=== PATIENT | female | born 1960 | race Hispanic/Latino ===

== ENCOUNTER 2021-08-17 06:15 | Inpatient (IN) | payer OTHER, SELFPAY ==
[2021-08-14 12:53] LABS: BASOPHILS % (AUTO) 0.8 % (0.0-5.0); EOSINOPHILS % (AUTO) 3.1 % (0.0-8.0); HEMATOCRIT 49.2 % (36-48); LYMPHOCYTES % (AUTO) 30.2 % (21.0-51.0); MEAN CORPUSCULAR HEMOGLOBIN 29.4 pg (27.0-33.0); MEAN CORPUSCULAR HGB CONC 34.1 g/dL (32.0-36.0); MEAN CORPUSCULAR VOLUME 86.2 fL (79-99); MONOCYTES % (AUTO) 5.4 % (3.0-13.0); NEUTROPHILS % (AUTO) 60.3 % (40.0-77.0); PLATELET COUNT (AUTO) 207 K/uL (130-400); RED BLOOD CELL COUNT(AUTO) 5.71 MIL/uL (4.00-5.50); RED CELL DISTRIBUTION WIDTH 12.4 % (11.0-15.5); WHITE BLOOD COUNT (AUTO) 8.8 K/uL (4.8-10.8)
[2021-08-14 13:08] LABS: INR 1.08 (0.85-1.15); PROTHROMBIN TIME 11.7 SEC (9.6-11.6)
[2021-08-14 13:09] LABS: PARTIAL THROMBOPLASTIN TIME 36.2 SEC (26.3-35.5)
[2021-08-14 13:11] LABS: CREATININE 0.8 mg/dL (0.5-1.5)
[2021-08-14 15:50] VITALS: BP 128/95
[2021-08-17] VITALS (19 sets, daily range): BP systolic 95–144; BP diastolic 51–89
[~2021-08-17] VITALS: Ht 162.6 cm; Wt 107.5 kg
[~2021-08-17 06:15] MED LIST: AMLO2.5T4 PO; APIX5TAB PO; CLON0.1T PO; DICL50TA9 PO; FLUT16H NASAL; FLUT8AER3 IH; HYDR12.54 PO; LEVO150T6 PO; LOSA100T58 PO; METO50TA18 PO; ROSU40TA21 PO; TOPI50CA5 PO
[2021-08-17] MEDS ORDERED: LIDOCAINE HCL 2% VISCOUS 15 ML UDCUP ONE (07:51)
[2021-08-17] MEDS ORDERED: 0.9%NACL 1000ML 1,000 ML IV SCH (08:00)
[2021-08-17] MEDS ORDERED: LIDOCAINE PF 100MG/5ML (2%) SYRINGE 5ML ONE (08:02)
[2021-08-17] MEDS ORDERED: PROPOFOL 10 MG/ML 20ML VIAL IV ONE (08:02)
[2021-08-17] MEDS ORDERED: GLYCOPYRROLATE 1 MG/5 ML SYRINGE ONE (08:03)
[2021-08-17] MEDS ORDERED: KCL 20 MEQ ERTAB PO SCH (09:00)
[2021-08-17] MEDS ORDERED: AMIODARONE 150MG VIAL 150 MG in DEXTROSE 5%-WATER 100 ML IV SCH (09:00)
[2021-08-17] MEDS ORDERED: AMIODARONE 360MG/200ML D5W(1MG/MIN) IV SCH ×2 (09:30)
[2021-08-17 11:57] LABS: BASOPHILS % (AUTO) 0.5 % (0.0-5.0); EOSINOPHILS % (AUTO) 2.3 % (0.0-8.0); HEMATOCRIT 41.7 % (36-48); LYMPHOCYTES % (AUTO) 27.9 % (21.0-51.0); MEAN CORPUSCULAR HEMOGLOBIN 30.1 pg (27.0-33.0); MEAN CORPUSCULAR HGB CONC 34.5 g/dL (32.0-36.0); MEAN CORPUSCULAR VOLUME 87.1 fL (79-99); MONOCYTES % (AUTO) 4.7 % (3.0-13.0); NEUTROPHILS % (AUTO) 64.4 % (40.0-77.0); PLATELET COUNT (AUTO) 172 K/uL (130-400); RED BLOOD CELL COUNT(AUTO) 4.79 MIL/uL (4.00-5.50); RED CELL DISTRIBUTION WIDTH 12.6 % (11.0-15.5); WHITE BLOOD COUNT (AUTO) 8.1 K/uL (4.8-10.8)
[2021-08-17 12:18] LABS: CREATININE 0.8 mg/dL (0.5-1.5); MAGNESIUM 1.9 mg/dL (1.80-2.40); POTASSIUM 3.3 mmol/L (3.5-5.1); THYROID STIMULATING HORMONE 0.62 uIU/mL (0.36-3.74)
[2021-08-17] MEDS ORDERED: AMIODARONE 540 MG/D5W 300ML (0.5MG/MIN) IV SCH ×2 (13:30)
[2021-08-17] MEDS ORDERED: KCL 20 MEQ ERTAB PO ONE (13:50)
[2021-08-17] MEDS: TOPIRAMATE 50 MG PO SCH (20:13)
[2021-08-17] MEDS: METOPROLOL TARTRATE 50 MG TAB PO SCH (20:13)
[2021-08-17] MEDS: APIXABAN 5 MG TABLET PO SCH (20:13)
[2021-08-17] MEDS ORDERED: CLONIDINE HCL 0.1 MG TABLET PO SCH (21:00)
[2021-08-17] MEDS ORDERED: AMLODIPINE 2.5 MG TAB PO SCH (21:00)
[2021-08-18] VITALS (17 sets, daily range): BP systolic 107–145; BP diastolic 46–107
[2021-08-18 03:57] LABS: CREATININE 1.1 mg/dL (0.5-1.5); POTASSIUM 3.7 mmol/L (3.5-5.1)
[2021-08-18] MEDS ORDERED: AMIODARONE 150MG VIAL 150 MG in DEXTROSE 5%-WATER 100 ML IV SCH (08:30)
[2021-08-18] MEDS ORDERED: AMIODARONE 900MG VIAL 360 MG in DEXTROSE 5%-WATER 200 ML IV SCH ×2 (08:30→09:30)
[2021-08-18] MEDS: LEVOTHYROXINE 150 MCG TABLET PO SCH (08:37)
[2021-08-18] MEDS: METOPROLOL TARTRATE 50 MG TAB PO SCH ×2 (08:38→21:01)
[2021-08-18] MEDS: APIXABAN 5 MG TABLET PO SCH ×2 (08:38→21:01)
[2021-08-18] MEDS: FUROSEMIDE 20MG VIAL IV SCH (08:38)
[2021-08-18] MEDS: POTASSIUM CHLORIDE 10% ELIXIR 20 MEQ/15 ML UDCUP PO SCH (08:39)
[2021-08-18] MEDS: (Rosuvastatin Calcium 40 MG) PO SCH (09:00)
[2021-08-18] MEDS: TOPIRAMATE 50 MG PO SCH ×2 (09:00→21:00)
[2021-08-18] MEDS: LOSARTAN 100 MG TABLET PO SCH ×2 (09:00→16:28)
[2021-08-18] MEDS ORDERED: AMIODARONE 900MG VIAL 150 MG in DEXTROSE 5%-WATER 100 ML IV SCH (09:00)
[2021-08-18] MEDS ORDERED: HYDROCHLOROTHIAZIDE 25 MG TABLET PO SCH (09:00)
[2021-08-18] MEDS ORDERED: KCL 20 MEQ ERTAB PO SCH (09:00)
[2021-08-18] MEDS ORDERED: METOPROLOL TARTRATE 1 MG/ML 5ML VIAL IV SCH (17:00)
[2021-08-18] MEDS: METOPROLOL TARTRATE 1 MG/ML 5ML VIAL IV ONE ×2 (17:16→17:18)
[2021-08-18] MEDS ORDERED: AMIODARONE 900MG VIAL 540 MG in DEXTROSE 5%-WATER 300 ML IV ONE (17:30)
[2021-08-19] VITALS (19 sets, daily range): BP systolic 108–154; BP diastolic 66–93
[2021-08-19 04:57] LABS: MEAN CORPUSCULAR HEMOGLOBIN 30.2 pg (27.0-33.0); MEAN CORPUSCULAR HGB CONC 34.6 g/dL (32.0-36.0); MEAN CORPUSCULAR VOLUME 87.5 fL (79-99); RED BLOOD CELL COUNT(AUTO) 5.26 MIL/uL (4.00-5.50); RED CELL DISTRIBUTION WIDTH 12.6 % (11.0-15.5); WHITE BLOOD COUNT (AUTO) 8.5 K/uL (4.8-10.8)
[2021-08-19 05:15] LABS: CREATININE 0.9 mg/dL (0.5-1.5); MAGNESIUM 1.9 mg/dL (1.80-2.40); POTASSIUM 3.3 mmol/L (3.5-5.1)
[2021-08-19] MEDS: LEVOTHYROXINE 150 MCG TABLET PO SCH (06:30)
[2021-08-19] MEDS: LOSARTAN 100 MG TABLET PO SCH (09:00)
[2021-08-19] MEDS: (Rosuvastatin Calcium 40 MG) PO SCH (09:00)
[2021-08-19] MEDS: TOPIRAMATE 50 MG PO SCH ×2 (09:00→21:00)
[2021-08-19] MEDS: POTASSIUM CHLORIDE 10% ELIXIR 20 MEQ/15 ML UDCUP PO SCH (09:00)
[2021-08-19] MEDS ORDERED: METOPROLOL TARTRATE 1 MG/ML 5ML VIAL IV ONE (09:00)
[2021-08-19] MEDS: METOPROLOL TARTRATE 50 MG TAB PO SCH ×2 (09:00→21:15)
[2021-08-19] MEDS ORDERED: PHARMACY COMMUNICATION MISC SCH (09:00)
[2021-08-19] MEDS: FUROSEMIDE 20MG VIAL IV SCH (09:14)
[2021-08-19] MEDS: APIXABAN 5 MG TABLET PO SCH ×2 (09:14→21:16)
[2021-08-19] MEDS ORDERED: 0.9%NACL 1000ML 1,000 ML IV ONE (09:36)
[2021-08-19] MEDS ORDERED: PROPOFOL 10 MG/ML 20ML VIAL IV ONE (12:12)
[2021-08-19] MEDS ORDERED: KCL 20 MEQ ERTAB PO ONE (18:00)
[2021-08-19] MEDS: AMIODARONE 200 MG TABLET PO SCH (18:28)
[2021-08-19] MEDS ORDERED: POTASSIUM CHLORIDE 20MEQ/100ML 100 ML IV PRN (19:30)
[2021-08-19] MEDS ORDERED: POTASSIUM CHLORIDE 10% ELIXIR 20 MEQ/15 ML UDCUP PO PRN (19:30)
[2021-08-19] MEDS ORDERED: KCL 20 MEQ ERTAB PO PRN (19:30)
[2021-08-19] MEDS ORDERED: LIDOCAINE HCL-MPF 1% 2ML VIAL IV PRN (19:30)
[2021-08-19] MEDS: FAMOTIDINE 20MG TAB PO SCH (21:15)
[2021-08-20 03:58] VITALS: BP 136/81
[2021-08-20 04:14] LABS: HEMATOCRIT 45.7 % (36-48); MEAN CORPUSCULAR HEMOGLOBIN 30.4 pg (27.0-33.0); MEAN CORPUSCULAR VOLUME 86.7 fL (79-99); RED BLOOD CELL COUNT(AUTO) 5.27 MIL/uL (4.00-5.50); RED CELL DISTRIBUTION WIDTH 12.8 % (11.0-15.5)
[2021-08-20 04:42] LABS: POTASSIUM 3.3 mmol/L (3.5-5.1)
[2021-08-20] MEDS: LEVOTHYROXINE 150 MCG TABLET PO SCH (05:54)
[2021-08-20 07:13] VITALS: BP 138/79
[2021-08-20] MEDS: AMIODARONE 200 MG TABLET PO SCH (07:27)
[2021-08-20] MEDS: FAMOTIDINE 20MG TAB PO SCH (07:27)
[2021-08-20] MEDS: APIXABAN 5 MG TABLET PO SCH (07:27)
[2021-08-20] MEDS: METOPROLOL TARTRATE 50 MG TAB PO SCH (07:27)
[2021-08-20] MEDS: LOSARTAN 100 MG TABLET PO SCH (07:27)
[2021-08-20] MEDS: TOPIRAMATE 50 MG PO SCH (07:28)
[2021-08-20] MEDS: (Rosuvastatin Calcium 40 MG) PO SCH (07:28)
[2021-08-20] MEDS ORDERED: POTASSIUM CHLORIDE 10% ELIXIR 20 MEQ/15 ML UDCUP PO SCH (09:00)
[2021-08-20] MEDS ORDERED: ROSU40TA21 PO (11:19)
[2021-08-20] MEDS ORDERED: AMIO200T68 PO (11:19)
[2021-08-20] MEDS ORDERED: METO25TA6 PO (11:19)
[2021-08-20] MEDS ORDERED: LOSA100T58 PO (11:19)
[2021-08-20] MEDS ORDERED: APIX5TAB PO (11:19)
[2021-08-20 12:05] VITALS: BP 126/73
== END 2021-08-20 13:07 | disposition home or self-care (01) | DRG 309 ==
LOC: DAH 06:15 → INTOOBSV 06:16 → OBSVTOIN 06:16 → DAH 06:16 → UNDOADMOB 06:16 → DAHIP 06:16 → 2BH 10:27 → DAHIP 10:27 → 2DH 08-19 02:00
PROVIDERS: ADMIT Hospitalist; ATTEND Hospitalist
PROC: 5A2204Z Restoration of Cardiac Rhythm, Single (ICD-10-PCS; principal; 2021-08-19)
DX: I48.91 Unspecified atrial fibrillation (principal); I50.22 Chronic systolic (congestive) heart failure; Z68.41 Body mass index [BMI] 40.0-44.9, adult; E87.6 Hypokalemia; E03.9 Hypothyroidism, unspecified; E66.9 Obesity, unspecified; E78.5 Hyperlipidemia, unspecified; I11.0 Hypertensive heart disease with heart failure; J45.909 Unspecified asthma, uncomplicated; Z79.01 Long term (current) use of anticoagulants; Z79.899 Other long term (current) drug therapy
CPT/HCPCS: 36415; 80048; 80061; 83735; 84443; 85025; 85027; 85610; 85730; 93005; 93306; 93312; 93356; 96374; A4606; G0378; J0282; J1940; J2001; J2704; J3490; J7030; J7060

== ENCOUNTER 2022-08-19 21:18 | Inpatient (IN) | payer OTHER ==
[~2022-08-19] VITALS: Ht 162.6 cm; Wt 123.2 kg
[~2022-08-19 21:18] MED LIST changes: +AMIO200T68 PO; -AMLO2.5T4 PO; -CLON0.1T PO; -DICL50TA9 PO; -FLUT16H NASAL; -HYDR12.54 PO; -LOSA100T58 PO; +LOSA100T59 PO; +METO25TA6 PO; -METO50TA18 PO
[2022-08-19 21:39] LABS: BASOPHILS % (AUTO) 0.6 % (0.0-5.0); EOSINOPHILS % (AUTO) 2.4 % (0.0-8.0); HEMATOCRIT 45.9 % (36-48); LYMPHOCYTES % (AUTO) 27.4 % (21.0-51.0); MEAN CORPUSCULAR HEMOGLOBIN 31.4 pg (27.0-33.0); MEAN CORPUSCULAR HGB CONC 34.2 g/dL (32.0-36.0); MEAN CORPUSCULAR VOLUME 91.8 fL (79-99); MONOCYTES % (AUTO) 5.2 % (3.0-13.0); NEUTROPHILS % (AUTO) 63.9 % (40.0-77.0); PLATELET COUNT (AUTO) 199 K/uL (130-400); WHITE BLOOD COUNT (AUTO) 10.4 K/uL (4.8-10.8)
[2022-08-19 21:51] LABS: POTASSIUM 3.2 mmol/L (3.5-5.1)
[2022-08-19 21:52] LABS: INR 0.95 (0.85-1.15); PROTHROMBIN TIME 10.4 SEC (9.6-11.6)
[2022-08-19 21:53] LABS: PARTIAL THROMBOPLASTIN TIME 32.2 SEC (26.3-35.5)
[2022-08-19] MEDS ORDERED: POTASSIUM BICARB/CIT AC 25 MEQ TABLET.EFF ONE (21:55)
[2022-08-19] MEDS ORDERED: ASPIRIN 325MG TAB PO ONE (22:00)
[2022-08-19] MEDS ORDERED: POTASSIUM BICARB/CIT AC 25 MEQ TABLET.EFF PO ONE (22:00)
[2022-08-19 22:01] LABS: ALBUMIN 4.6 g/dL (3.5-5.0); TOTAL PROTEIN, SERUM 7.9 g/dL (6.0-8.3)
[2022-08-19] MEDS: NITROGLYCERIN 0.4 MG SL TAB SL PRN ×3 (22:08→23:01)
[2022-08-19] MEDS ORDERED: MORPHINE 4 MG SYG IVP ONE (23:00)
[2022-08-19] MEDS ORDERED: ONDANSETRON 4MG INJ IVP ONE (23:00)
[2022-08-20] VITALS (13 sets, daily range): BP systolic 120–150; BP diastolic 69–98
[2022-08-20] MEDS ORDERED: 0.9%NACL 1000ML 1,000 ML IV ONE
[2022-08-20] MEDS ORDERED: NITROGLYCERIN 30 GM TUBE TD ONE (01:30)
[2022-08-20] MEDS ORDERED: NITROGLYCERIN 1GM OINT 1 INCH/1GM TD ONE (01:30)
[2022-08-20] MEDS ORDERED: MORPHINE 2 MG SYG IVP PRN (02:00)
[2022-08-20] MEDS ORDERED: ACETAMINOPHEN 325 MG TAB PO PRN (02:00)
[2022-08-20] MEDS ORDERED: ONDANSETRON 4MG TABLET PO PRN (02:00)
[2022-08-20] MEDS ORDERED: FURO20TA4 PO (03:33)
[2022-08-20] MEDS ORDERED: LEVO150T11 PO (03:33)
[2022-08-20] MEDS ORDERED: METO50 PO (03:33)
[2022-08-20] MEDS ORDERED: TOPI-255 PO (03:33)
[2022-08-20 04:04] LABS: BASOPHILS % (AUTO) 0.7 % (0.0-5.0); EOSINOPHILS % (AUTO) 1.9 % (0.0-8.0); HEMATOCRIT 43.8 % (36-48); LYMPHOCYTES % (AUTO) 23.9 % (21.0-51.0); MEAN CORPUSCULAR HEMOGLOBIN 31.3 pg (27.0-33.0); MEAN CORPUSCULAR HGB CONC 33.3 g/dL (32.0-36.0); MEAN CORPUSCULAR VOLUME 93.8 fL (79-99); MONOCYTES % (AUTO) 5.3 % (3.0-13.0); NEUTROPHILS % (AUTO) 67.6 % (40.0-77.0); PLATELET COUNT (AUTO) 190 K/uL (130-400); RED BLOOD CELL COUNT(AUTO) 4.67 MIL/uL (4.00-5.50); RED CELL DISTRIBUTION WIDTH 13.2 % (11.0-15.5); WHITE BLOOD COUNT (AUTO) 10.4 K/uL (4.8-10.8)
[2022-08-20 04:07] LABS: APPEARANCE,URINE CLEAR (CLEAR); BILIRUBIN,URINE NEGATIVE (NEGATIVE); COLOR,URINE LIGHT-YELLOW (YELLOW); GLUCOSE, URINE (UA) NEGATIVE (NEGATIVE); KETONES,URINE NEGATIVE (NEGATIVE); LEUKOCYTE ESTERASE ,URINE NEGATIVE Leu/uL (NEGATIVE); NITRATE,URINE NEGATIVE (NEGATIVE); OCCULT BLOOD,URINE NEGATIVE (NEGATIVE); PROTEIN,URINE NEGATIVE (NEGATIVE); UROBILINOGEN,URINE 0.2 mg/dL (0.2-1.0)
[2022-08-20 04:17] LABS: HEMOGLOBIN A1C 5.8 % (4.0-6.0)
[2022-08-20 04:38] LABS: ALBUMIN 4.2 g/dL (3.5-5.0); TOTAL PROTEIN, SERUM 7.3 g/dL (6.0-8.3)
[2022-08-20] MEDS: INSULIN HUMULIN R 100 UNIT/ML 3ML SQ SCH ×4 (05:36→21:00)
[2022-08-20] MEDS: TOPIRAMATE 100 MG TAB PO SCH ×2 (08:50→21:11)
[2022-08-20] MEDS: APIXABAN 5 MG TABLET PO SCH ×2 (08:50→21:11)
[2022-08-20] MEDS: METOPROLOL TARTRATE 50 MG TAB PO SCH ×3 (08:50→21:11)
[2022-08-20] MEDS: FUROSEMIDE 20 MG TABLET PO SCH (08:50)
[2022-08-20] MEDS: LOSARTAN 100 MG TABLET PO SCH (08:50)
[2022-08-20] MEDS: AMIODARONE 200 MG TABLET PO SCH (08:51)
[2022-08-20] MEDS ORDERED: DILTIAZEM 25MG INJ IVP ONE ×2 (10:15)
[2022-08-20] MEDS ORDERED: DILTIAZEM 25MG INJ IVP PRN (10:30)
[2022-08-20] MEDS ORDERED: MIDAZOLAM HCL 1 MG/ML 2ML VIAL IVP ONE (13:00)
[2022-08-20] MEDS ORDERED: FENTANYL 2500MCG+NS 250ML IV.SOLN IV ONE (13:00)
[2022-08-20] MEDS: METOPROLOL TARTRATE 1 MG/ML 5ML VIAL IV PRN ×3 (15:21→15:56)
[2022-08-20] MEDS ORDERED: DILTIAZEM 50MG VIAL IV SCH (18:30)
[2022-08-20] MEDS: Rosuvastatin Calcium 40 MG PO SCH (21:24)
[2022-08-21] VITALS (7 sets, daily range): BP systolic 98–154; BP diastolic 58–92
[2022-08-21] MEDS ORDERED: DILTIAZEM 125MG+100 ML NS 125 ML IV ONE (01:58)
[2022-08-21] MEDS: METOPROLOL TARTRATE 1 MG/ML 5ML VIAL IV PRN ×3 (03:16→03:39)
[2022-08-21] MEDS: LEVOTHYROXINE 150 MCG TABLET PO SCH (07:19)
[2022-08-21] MEDS: INSULIN HUMULIN R 100 UNIT/ML 3ML SQ SCH ×4 (07:30→20:33)
[2022-08-21] MEDS: LOSARTAN 100 MG TABLET PO SCH ×2 (09:00→09:08)
[2022-08-21] MEDS: APIXABAN 5 MG TABLET PO SCH ×2 (09:08→20:32)
[2022-08-21] MEDS: AMIODARONE 200 MG TABLET PO SCH (09:08)
[2022-08-21] MEDS: FUROSEMIDE 20 MG TABLET PO SCH ×2 (09:08→11:38)
[2022-08-21] MEDS: METOPROLOL TARTRATE 50 MG TAB PO SCH ×3 (09:09→20:31)
[2022-08-21] MEDS: TOPIRAMATE 100 MG TAB PO SCH ×2 (09:10→20:32)
[2022-08-21] MEDS ORDERED: PHARMACY COMMUNICATION MISC SCH (10:00)
[2022-08-21] MEDS ORDERED: METOPROLOL TARTRATE 25 MG TAB PO ONE (16:00)
[2022-08-21] MEDS: Rosuvastatin Calcium 40 MG PO SCH (20:34)
[2022-08-22 00:11] VITALS: BP 127/77
[2022-08-22 04:40] VITALS: BP 128/72
[2022-08-22 05:00] LABS: HEMATOCRIT 43.3 % (36-48); MEAN CORPUSCULAR HEMOGLOBIN 31.5 pg (27.0-33.0); MEAN CORPUSCULAR HGB CONC 33.7 g/dL (32.0-36.0); MEAN CORPUSCULAR VOLUME 93.3 fL (79-99); RED BLOOD CELL COUNT(AUTO) 4.64 MIL/uL (4.00-5.50); RED CELL DISTRIBUTION WIDTH 13.1 % (11.0-15.5); WHITE BLOOD COUNT (AUTO) 6.6 K/uL (4.8-10.8)
[2022-08-22 05:22] LABS: POTASSIUM 3.5 mmol/L (3.5-5.1)
[2022-08-22 05:23] LABS: ALBUMIN 3.7 g/dL (3.5-5.0); CREATININE 0.9 mg/dL (0.5-1.5); TOTAL PROTEIN, SERUM 7.1 g/dL (6.0-8.3)
[2022-08-22] MEDS ORDERED: POTASSIUM CHLORIDE 20MEQ/100ML 100 ML IV PRN (05:30)
[2022-08-22] MEDS: KCL 20 MEQ ERTAB PO PRN ×2 (05:55→08:41)
[2022-08-22] MEDS: LEVOTHYROXINE 150 MCG TABLET PO SCH (05:55)
[2022-08-22] MEDS: INSULIN HUMULIN R 100 UNIT/ML 3ML SQ SCH ×4 (06:33→21:00)
[2022-08-22 07:00] VITALS: BP 123/79
[2022-08-22] MEDS: TOPIRAMATE 100 MG TAB PO SCH ×2 (08:35→20:26)
[2022-08-22] MEDS: APIXABAN 5 MG TABLET PO SCH ×2 (08:36→20:26)
[2022-08-22] MEDS: FUROSEMIDE 20 MG TABLET PO SCH (08:36)
[2022-08-22] MEDS: AMIODARONE 200 MG TABLET PO SCH (08:39)
[2022-08-22] MEDS: METOPROLOL TARTRATE 50 MG TAB PO SCH ×3 (08:40→20:26)
[2022-08-22] MEDS: LOSARTAN 100 MG TABLET PO SCH (08:41)
[2022-08-22 11:00] VITALS: BP 123/84
[2022-08-22 16:00] VITALS: BP 111/78
[2022-08-22 20:17] VITALS: BP 148/98
[2022-08-22] MEDS: Rosuvastatin Calcium 40 MG PO SCH (20:26)
[2022-08-23] VITALS (7 sets, daily range): BP systolic 104–135; BP diastolic 62–90
[2022-08-23 03:47] LABS: HEMATOCRIT 45.3 % (36-48); MEAN CORPUSCULAR HEMOGLOBIN 31.6 pg (27.0-33.0); MEAN CORPUSCULAR HGB CONC 34.2 g/dL (32.0-36.0); MEAN CORPUSCULAR VOLUME 92.3 fL (79-99); RED BLOOD CELL COUNT(AUTO) 4.91 MIL/uL (4.00-5.50); RED CELL DISTRIBUTION WIDTH 12.9 % (11.0-15.5)
[2022-08-23 04:02] LABS: ALBUMIN 3.7 g/dL (3.5-5.0); POTASSIUM 3.4 mmol/L (3.5-5.1); TOTAL PROTEIN, SERUM 7.4 g/dL (6.0-8.3)
[2022-08-23] MEDS: LEVOTHYROXINE 150 MCG TABLET PO SCH (05:54)
[2022-08-23] MEDS: KCL 20 MEQ ERTAB PO PRN (05:55)
[2022-08-23] MEDS: INSULIN HUMULIN R 100 UNIT/ML 3ML SQ SCH ×4 (07:28→20:24)
[2022-08-23] MEDS: LOSARTAN 100 MG TABLET PO SCH (09:33)
[2022-08-23] MEDS: AMIODARONE 200 MG TABLET PO SCH (09:33)
[2022-08-23] MEDS: FUROSEMIDE 20 MG TABLET PO SCH (09:33)
[2022-08-23] MEDS: TOPIRAMATE 100 MG TAB PO SCH ×2 (09:33→20:24)
[2022-08-23] MEDS: METOPROLOL TARTRATE 50 MG TAB PO SCH ×3 (09:34→20:23)
[2022-08-23] MEDS: APIXABAN 5 MG TABLET PO SCH (09:34)
[2022-08-23] MEDS: POTASSIUM CHLORIDE 10% ELIXIR 20 MEQ/15 ML UDCUP PO PRN (09:36)
[2022-08-23] MEDS: Rosuvastatin Calcium 40 MG PO SCH (20:24)
[2022-08-24] VITALS (21 sets, daily range): BP systolic 98–129; BP diastolic 51–81
[2022-08-24 04:30] LABS: HEMATOCRIT 45.1 % (36-48); MEAN CORPUSCULAR HEMOGLOBIN 31.6 pg (27.0-33.0); MEAN CORPUSCULAR HGB CONC 33.7 g/dL (32.0-36.0); MEAN CORPUSCULAR VOLUME 93.8 fL (79-99); RED BLOOD CELL COUNT(AUTO) 4.81 MIL/uL (4.00-5.50); WHITE BLOOD COUNT (AUTO) 7.6 K/uL (4.8-10.8)
[2022-08-24 04:45] LABS: ALBUMIN 3.9 g/dL (3.5-5.0); CREATININE 1.1 mg/dL (0.5-1.5); POTASSIUM 3.5 mmol/L (3.5-5.1); TOTAL PROTEIN, SERUM 7.3 g/dL (6.0-8.3)
[2022-08-24] MEDS: POTASSIUM CHLORIDE 10% ELIXIR 20 MEQ/15 ML UDCUP PO PRN (05:33)
[2022-08-24] MEDS: LEVOTHYROXINE 150 MCG TABLET PO SCH (05:33)
[2022-08-24] MEDS: INSULIN HUMULIN R 100 UNIT/ML 3ML SQ SCH ×4 (06:41→20:15)
[2022-08-24] MEDS: METOPROLOL TARTRATE 50 MG TAB PO SCH ×2 (09:00→14:00)
[2022-08-24] MEDS: LOSARTAN 100 MG TABLET PO SCH (09:00)
[2022-08-24] MEDS: TOPIRAMATE 100 MG TAB PO SCH ×2 (09:00→20:13)
[2022-08-24] MEDS: FUROSEMIDE 20 MG TABLET PO SCH (09:00)
[2022-08-24] MEDS: AMIODARONE 200 MG TABLET PO SCH (09:00)
[2022-08-24] MEDS ORDERED: HEPARIN 10,000 UNIT/10ML (1,000 UNIT/ML) VIAL ONE (11:59)
[2022-08-24] MEDS ORDERED: LIDOCAINE HCL 1% MDV 50ML VIAL ONE (11:59)
[2022-08-24] MEDS ORDERED: MIDAZOLAM HCL 1 MG/ML 2ML VIAL ONE (12:40)
[2022-08-24] MEDS ORDERED: PROPOFOL 10 MG/ML 20ML VIAL IV ONE (12:40)
[2022-08-24] MEDS ORDERED: SOLU-MEDROL 40MG VIAL ONE (12:42)
[2022-08-24] MEDS ORDERED: PROPOFOL 1000 MG/100 ML 100 ML IV ONE (12:42)
[2022-08-24] MEDS ORDERED: GLYCOPYRROLATE 1 MG/5 ML SYRINGE ONE (12:43)
[2022-08-24] MEDS ORDERED: KETAMINE 50MG/ML SYRINGE 50 MG/ML DISP.SYRIN ONE (12:44)
[2022-08-24] MEDS ORDERED: ALBUTEROL INHALER 90MCG/INH IH ONE (12:45)
[2022-08-24] MEDS ORDERED: ALBUTEROL 0.083% 2.5 MG/3 ML INH IH ONE (14:59)
[2022-08-24] MEDS: Rosuvastatin Calcium 40 MG PO SCH (20:13)
[2022-08-25 03:05] VITALS: BP 115/75
[2022-08-25 05:38] LABS: HEMATOCRIT 41.3 % (36-48); MEAN CORPUSCULAR HGB CONC 33.9 g/dL (32.0-36.0); MEAN CORPUSCULAR VOLUME 94.3 fL (79-99); RED BLOOD CELL COUNT(AUTO) 4.38 MIL/uL (4.00-5.50); RED CELL DISTRIBUTION WIDTH 12.9 % (11.0-15.5); WHITE BLOOD COUNT (AUTO) 10.4 K/uL (4.8-10.8)
[2022-08-25 06:06] LABS: ALBUMIN 3.7 g/dL (3.5-5.0); CREATININE 1.1 mg/dL (0.5-1.5); POTASSIUM 3.8 mmol/L (3.5-5.1); TOTAL PROTEIN, SERUM 7.1 g/dL (6.0-8.3)
[2022-08-25] MEDS: INSULIN HUMULIN R 100 UNIT/ML 3ML SQ SCH (06:21)
[2022-08-25] MEDS: LEVOTHYROXINE 150 MCG TABLET PO SCH (06:21)
[2022-08-25 07:48] VITALS: BP 118/65
[2022-08-25] MEDS: AMIODARONE 200 MG TABLET PO SCH (08:30)
[2022-08-25] MEDS: LOSARTAN 100 MG TABLET PO SCH (08:31)
[2022-08-25] MEDS: FUROSEMIDE 20 MG TABLET PO SCH (08:31)
[2022-08-25] MEDS: TOPIRAMATE 100 MG TAB PO SCH (08:32)
[2022-08-25] MEDS ORDERED: APIXABAN 5 MG TABLET PO SCH (09:00)
== END 2022-08-25 12:12 | disposition home or self-care (01) | DRG 273 ==
LOC: EDH 21:18 → EDHIP 21:19 → 2DH 08-20 02:49
PROVIDERS: ADMIT Internal Medicine Infectious Disease; ATTEND Internal Medicine Infectious Disease
PROC: 02583ZZ Destruction of Conduction Mechanism, Percutaneous Approach (ICD-10-PCS; principal; 2022-08-24)
DX: I48.3 Typical atrial flutter (principal); I50.43 Acute on chronic combined systolic (congestive) and diastolic (congestive) heart failure; Z68.42 Body mass index [BMI] 45.0-49.9, adult; I48.0 Paroxysmal atrial fibrillation; I25.119 Atherosclerotic heart disease of native coronary artery with unspecified angina pectoris; I42.9 Cardiomyopathy, unspecified; I11.0 Hypertensive heart disease with heart failure; E66.01 Morbid (severe) obesity due to excess calories; E03.9 Hypothyroidism, unspecified; E11.9 Type 2 diabetes mellitus without complications; E78.00 Pure hypercholesterolemia, unspecified; E87.6 Hypokalemia; J45.909 Unspecified asthma, uncomplicated; Z91.199 Patient's noncompliance with other medical treatment and regimen due to unspecified reason; Z79.899 Other long term (current) drug therapy; Z79.01 Long term (current) use of anticoagulants
CPT/HCPCS: 36415; 71045; 80053; 81003; 82550; 82948; 83036; 83690; 83735; 83874; 83880; 84484; 85025; 85027; 85378; 85610; 85730; 93005; 93306; 93653; 94640; C1732; C1894; G0378; J1644; J2250; J2270; J2405; J2704; J2920; J3490

== ENCOUNTER 2022-08-26 19:37 | Emergency (ER) | payer OTHER ==
[~2022-08-26] VITALS: Ht 162.6 cm; Wt 121.6 kg
[~2022-08-26 19:37] MED LIST changes: +FURO20TA4 PO; +LEVO150T11 PO
[2022-08-26] MEDS ORDERED: HYDRALAZINE 20MG/ML VIAL IV ONE (20:00)
[2022-08-26 21:11] LABS: BASOPHILS % (AUTO) 0.8 % (0.0-5.0); EOSINOPHILS % (AUTO) 3.1 % (0.0-8.0); HEMATOCRIT 41.8 % (36-48); LYMPHOCYTES % (AUTO) 22.5 % (21.0-51.0); MEAN CORPUSCULAR HEMOGLOBIN 31.7 pg (27.0-33.0); MEAN CORPUSCULAR HGB CONC 34.4 g/dL (32.0-36.0); MEAN CORPUSCULAR VOLUME 92.1 fL (79-99); MONOCYTES % (AUTO) 6.7 % (3.0-13.0); NEUTROPHILS % (AUTO) 66.1 % (40.0-77.0); PLATELET COUNT (AUTO) 65 K/uL (130-400); RED BLOOD CELL COUNT(AUTO) 4.54 MIL/uL (4.00-5.50); RED CELL DISTRIBUTION WIDTH 13.1 % (11.0-15.5); WHITE BLOOD COUNT (AUTO) 7.9 K/uL (4.8-10.8)
[2022-08-26 21:25] LABS: INR 0.96 (0.85-1.15); PROTHROMBIN TIME 10.5 SEC (9.6-11.6)
[2022-08-26 21:26] LABS: PARTIAL THROMBOPLASTIN TIME 31.2 SEC (26.3-35.5)
[2022-08-26 21:37] LABS: ALBUMIN 3.9 g/dL (3.5-5.0); B-TYPE NATRIURETIC PEPTIDE 87 pg/mL (0-100); CREATININE 0.9 mg/dL (0.5-1.5); MAGNESIUM 1.7 mg/dL (1.80-2.40); TOTAL PROTEIN, SERUM 7.1 g/dL (6.0-8.3)
[2022-08-26 21:42] LABS: POTASSIUM 2.8 mmol/L (3.5-5.1)
[2022-08-26] MEDS ORDERED: POTASSIUM BICARB/CIT AC 25 MEQ TABLET.EFF PO ONE (22:00)
[2022-08-26 23:35] LABS: APPEARANCE,URINE CLEAR (CLEAR); BILIRUBIN,URINE NEGATIVE (NEGATIVE); COLOR,URINE LIGHT-YELLOW (YELLOW); GLUCOSE, URINE (UA) NEGATIVE (NEGATIVE); KETONES,URINE NEGATIVE (NEGATIVE); LEUKOCYTE ESTERASE ,URINE NEGATIVE Leu/uL (NEGATIVE); NITRATE,URINE NEGATIVE (NEGATIVE); OCCULT BLOOD,URINE NEGATIVE (NEGATIVE); PH,URINE 6.5 (5.0-8.0); PROTEIN,URINE NEGATIVE (NEGATIVE); UROBILINOGEN,URINE 0.2 mg/dL (0.2-1.0)
[2022-08-27 00:20] VITALS: BP 121/65
== END 2022-08-27 00:22 | disposition home or self-care (01) ==
LOC: EDH 19:37
DX: R00.2 Palpitations (principal); F41.9 Anxiety disorder, unspecified; I10 Essential (primary) hypertension; E87.6 Hypokalemia; E78.00 Pure hypercholesterolemia, unspecified; Z90.89 Acquired absence of other organs; Z98.890 Other specified postprocedural states; Z79.899 Other long term (current) drug therapy
CPT/HCPCS: 99285; 96374; 71045; 82550; 83735; 84484 ×2; 80053; 83880; 85025; 85610; 85730; 81003; 36415; 93005 ×2; J0360

== ENCOUNTER → 2023-08-01 | Outpatient (CLI) | payer SELFPAY ==
[~2023-08-01] MED LIST changes: -ROSU40TA21 PO; +ROSU40TA70 PO
[2023-08-01 12:29] LABS: ALBUMIN 4.3 g/dL (3.5-5.0); BILIRUBIN,TOTAL 0.6 mg/dL (0.2-1.0); POTASSIUM 3.6 mmol/L (3.5-5.1); TOTAL PROTEIN, SERUM 7.9 g/dL (6.0-8.3)
== END | disposition home or self-care (01) ==
LOC: LAB 08:26
PROVIDERS: ATTEND Student in an Organized Health Care Education/Training Program
DX: E78.5 Hyperlipidemia, unspecified (principal); I10 Essential (primary) hypertension
CPT/HCPCS: 36415; 80053

== ENCOUNTER → 2023-08-15 | Outpatient (CLI) | payer SELFPAY ==
[~2023-08-15] MED LIST changes: +IOHEXOL 350 MG/ML 100ML INFUS..BTL IV ONE
== END | disposition home or self-care (01) ==
LOC: RAH 08:54
PROVIDERS: ATTEND Student in an Organized Health Care Education/Training Program
DX: R07.89 Other chest pain (principal)
CPT/HCPCS: 75574; Q9967

== ENCOUNTER 2023-09-06 20:41 | Emergency (ER) | payer OTHER, SELFPAY ==
[~2023-09-06] VITALS: Ht 162.6 cm; Wt 129.3 kg
[~2023-09-06 20:41] MED LIST changes: -IOHEXOL 350 MG/ML 100ML INFUS..BTL IV ONE
[2023-09-06 21:43] LABS: BASOPHILS # (AUTO) 0.03 K/uL (0.00-0.20); BASOPHILS % (AUTO) 0.5 % (0.0-5.0); EOSINOPHILS # (AUTO) 0.07 K/uL (0.00-0.70); EOSINOPHILS % (AUTO) 1.1 % (0.0-8.0); HEMATOCRIT 47.3 % (36-48); IMMATURE GRANULOCYTE ABSOLUTE 0.05 K/uL (0-1); LYMPHOCYTES % (AUTO) 14.9 % (21.0-51.0); MEAN CORPUSCULAR HEMOGLOBIN 32.2 pg (27.0-33.0); MEAN CORPUSCULAR HGB CONC 34.7 g/dL (32.0-36.0); MEAN CORPUSCULAR VOLUME 92.7 fL (79-99); MONOCYTES # (AUTO) 0.3 K/uL (0.1-1.0); MONOCYTES % (AUTO) 4.7 % (3.0-13.0); NEUTROPHILS # (AUTO) 5.1 K/uL (1.8-7.7); PLATELET COUNT (AUTO) 192 K/uL (130-400); RED CELL DISTRIBUTION WIDTH 12.6 % (11.0-15.5); WHITE BLOOD COUNT (AUTO) 6.6 K/uL (4.8-10.8)
[2023-09-06 21:57] LABS: ALBUMIN 3.6 g/dL (3.5-5.0); BILIRUBIN,TOTAL 1.1 mg/dL (0.2-1.0); MAGNESIUM 1.5 mg/dL (1.80-2.40); POTASSIUM 3.6 mmol/L (3.5-5.1); TOTAL PROTEIN, SERUM 7.2 g/dL (6.0-8.3)
[2023-09-06 22:01] LABS: INR 1.04 (0.85-1.15); PARTIAL THROMBOPLASTIN TIME 27.4 SEC (26.3-35.5)
[2023-09-06 22:04] LABS: B-TYPE NATRIURETIC PEPTIDE 163 pg/mL (0-100)
[2023-09-07] MEDS: ACETAMINOPHEN 500 MG TABLET PO ONE (00:17)
[2023-09-07] MEDS: DILTIAZEM 25MG INJ IVP ONE (00:17)
[2023-09-07] MEDS: MAGNESIUM 2GM PREMIX 50ML 50 ML IV SCH (00:18)
[2023-09-07 00:58] LABS: COVID19 (SARS ANTIGEN RAPID) PRESUMPTIVE NEGATIVE (NEGATIVE); INFLUENZA TYPE A Negative For Type A (NEGATIVE); INFLUENZA TYPE B Negative For Type B (NEGATIVE)
[2023-09-07 01:34] VITALS: BP 136/79; PULSE 82; RESP 18; O2SAT 97
== END 2023-09-07 01:36 | disposition home or self-care (01) ==
LOC: EDH 20:41
DX: I48.20 Chronic atrial fibrillation, unspecified (principal); R07.89 Other chest pain; E83.42 Hypomagnesemia; R51.9 Headache, unspecified; E78.00 Pure hypercholesterolemia, unspecified; J45.909 Unspecified asthma, uncomplicated; Z79.01 Long term (current) use of anticoagulants; Z79.51 Long term (current) use of inhaled steroids; Z79.890 Hormone replacement therapy; Z79.899 Other long term (current) drug therapy
CPT/HCPCS: 99285; 96374; 70450; 71045; 96375; 87426; 82550; 83735; 84484 ×2; 80053; 83880; 85025; 85610; 85730; 87880; 87804 ×2; 36415; 93005; J3475; J3490

== ENCOUNTER 2024-03-19 15:19 | Inpatient (IN) | payer SELFPAY ==
[~2024-03-19] VITALS: Ht 162.6 cm; Wt 135.4 kg
[~2024-03-19 15:19] MED LIST changes: -ROSU40TA70 PO; +ROSU40TA88 PO
[2024-03-19] MEDS ORDERED: PoTASSium chloRIDE 20MEQ/100ML 100 ML IV SCH (16:00)
[2024-03-19 16:08] LABS: BASOPHILS # (AUTO) 0.08 K/uL (0.00-0.20); BASOPHILS % (AUTO) 1.2 % (0.0-5.0); EOSINOPHILS # (AUTO) 0.19 K/uL (0.00-0.70); EOSINOPHILS % (AUTO) 2.8 % (0.0-8.0); LYMPHOCYTES # (AUTO) 1.6 K/uL (1.0-4.8); LYMPHOCYTES % (AUTO) 22.7 % (21.0-51.0); MEAN CORPUSCULAR HEMOGLOBIN 32.6 pg (27.0-33.0); MEAN CORPUSCULAR HGB CONC 34.7 g/dL (32.0-36.0); MEAN CORPUSCULAR VOLUME 93.9 fL (79-99); MONOCYTES # (AUTO) 0.4 K/uL (0.1-1.0); MONOCYTES % (AUTO) 6.1 % (3.0-13.0); NEUTROPHILS # (AUTO) 4.5 K/uL (1.8-7.7); NEUTROPHILS % (AUTO) 65.7 % (40.0-77.0); PLATELET COUNT (AUTO) 204 K/uL (130-400); RED BLOOD CELL COUNT(AUTO) 4.79 MIL/uL (4.00-5.50); RED CELL DISTRIBUTION WIDTH 12.2 % (11.0-15.5); WHITE BLOOD COUNT (AUTO) 6.8 K/uL (4.8-10.8)
[2024-03-19 16:17] LABS: POTASSIUM 3.2 mmol/L (3.5-5.1)
--- NOTE | 2024-03-19 16:18 | HP ---
[facility] HISTORY AND PHYSICAL Date of Service: Mar 19, 2024 Time of Service: 16:11 HISTORY OF PRESENT ILLNESS: [ ] admission date: 03/19/24 chief complaints: lower ext swelling, Direct admit from DR Angeles office: A flutter with RVR This is a 63-year-old presents in ED as a direct admit from her health information technician's office Dr. Angeles. Patient had a follow-up appointment patient reports she has not be taking her metoprolol for a week given to she had a follow-up appointment today. During her evaluation she was found to have a flutter with RVR. Patient has report increased edema to her lower extremities bilateral +2 and shortness for breath with minimal exertion. Onset: several days, severity: moderate, aggravation : activity, allviated factors: rest. Patient denies chest pain palpitation dizziness or near faint. 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 Home medications: metoprolol 50 mg p.o. every12 hours rosuvastatin 40 mg p.o. bedtime Lasix 20 mg p.o. daily losartan 100 mg p.o. daily amiodarone 200 mg daily levothyroxine 150mcg daily The patient was seen at ED for patient is fully awake alert oriented x3. patient denied chest pain all questions were addressed. REVIEW OF SYSTEMS A 14 point ROS was obtained all relevant positives were documented otherwise ROS negative PAST MEDICAL HISTORY: [ ] Refer to HPI PAST SURGICAL HISTORY: [ ] Ablation PAST SOCIAL HISTORY: [ ] Denies smoking tobacco products and alcohol use FAMILY HISTORY: [ ] Hypertension heart disease Coded Allergies: No Known Allergies (Verified Allergy, Unknown, 08/14/21) PHYSICAL EXAM GENERAL APPEARANCE: The patient is awake, alert, and oriented, in no acute cardiopulmonary distress. Obese NEUROLOGICAL: Cranial nerves II-XII grossly intact. Motor is 5/5 in bilateral upper and lower extremities proximal to distal. No sensory deficits. HEENT: Face is symmetric. Pupils are equal and reactive. Extraocular movements are intact. NECK: Supple. No JVD. No thyromegaly. No submental, submandibular, pre- /postauricular, occipital or supraclavicular lymphadenopathy. CHEST: Normal chest expansion. No Telemetry. LUNGS: Absence of any rales, rhonchi or any wheezing. CARDIOVASCULAR inr regular a flutter S1 and S2 normal. No appreciable rubs, murmurs or gallops. ABDOMEN: Soft, nontender, and nondistended. There is no rebound, voluntary guarding, or rigidity. : Deferred. No Blue. EXTREMITIES: ++edematous and not cyanotic. No clubbing. Good capillary refill. SKIN: No skin breakdown. Vital Sign (Last 24 Hours) 03/19/24 15:20 Temp 97.9 Pulse 94 Resp 16 B/P (MAP) 176/115 Pulse Ox 98 O2 Delivery Room Air O2 Flow Rate 0 LABS: Laboratory: Test 03/19/24 15:44 Range/Units White Blood Count 6.8 4.8-10.8 K/uL Red Blood Count 4.79 4.00-5.50 MIL/uL Hemoglobin 15.6 12.0-16.0 g/dL Hematocrit 45.0 36-48 % Mean Corpuscular Volume 93.9 79-99 fL Mean Corpuscular Hemoglobin 32.6 27.0-33.0 pg Mean Corpuscular Hemoglobin Concent 34.7 32.0-36.0 g/dL Red Cell Distribution Width 12.2 11.0-15.5 % Platelet Count 204 130-400 K/uL Mean Platelet Volume 10.3 7.5-10.5 fL Immature Granulocyte % (Auto) 1.5 H 0-1 % Neutrophils (%) (Auto) 65.7 40.0-77.0 % Lymphocytes (%) (Auto) 22.7 21.0-51.0 % Monocytes (%) (Auto) 6.1 3.0-13.0 % Eosinophils (%) (Auto) 2.8 0.0-8.0 % Basophils (%) (Auto) 1.2 0.0-5.0 % Neutrophils # (Auto) 4.5 1.8-7.7 K/uL Lymphocytes # (Auto) 1.6 1.0-4.8 K/uL Monocytes # (Auto) 0.4 0.1-1.0 K/uL Eosinophils # (Auto) 0.19 0.00-0.70 K/uL Basophils # (Auto) 0.08 0.00-0.20 K/uL Absolute Immature Granulocyte (auto 0.10 0-1 K/uL Nucleated Red Blood Cells 0.0 0.0-0.19 % Current Medications Medications (Trade) Dose Ordered Sig/Hunter Route PRN Reason Start Time Stop Time Status Last Admin Dose Admin Amiodarone HCl 150 mg/Dextrose 100 ml @ 0 mls/hr PROTOCOL IV 03/19/24 16:00 04/18/24 15:59 Amiodarone HCl 360 mg/Dextrose 200 ml @ 0 mls/hr PROTOCOL IV 03/19/24 16:00 03/19/24 22:00 Amiodarone HCl 540 mg/Dextrose 300 ml @ 0 mls/hr PROTOCOL IV 03/19/24 22:00 04/18/24 21:59 Furosemide (LASix 20MG VIAL) 20 mg Q8H IV 03/19/24 16:00 04/18/24 15:59 Potassium Chloride 100 ml @ 50 mls/hr PROTOCOL IV 03/19/24 16:00 04/18/24 15:59 DIAGNOSTICS / RADIOLOGY: [ ] ASSESSMENT: A flutter with RVR requiring amiodarone drip POA Acute CHF with exacerbation POA electrolytes derangement: hypokalemia hypernatremia POA Morbid obesity BMI 50.8 Dyspnea on exertion POA nonadherence to medication POA chronic problems: Hypertension, hyperlipidemia, hypothyroidism PLAN: Admit: PCCU condition: Fair Status: Full code IVF: Hep-Lock fluid restriction 1.5 L daily Consultants health information technician's Medication amiodarone drip per protocol, Lasix 20 IV every 8 hours Strict I&Os daily weight Instructed to elevate lower extremities Oxygen supplemental to keep O2 sats above 92% as needed basis Home medications: will resumed losartan 100 mg p.o. daily atorvastatin 40 mg p.o. bedtime Test: Arterial Doppler to lower extremities Labs cbc, cmp, mag+ TSH, Lipid panel Replace electrolytes as needed as per protocol to keep potassium above 4.0 magnesium 2.0. Risk factor Modification: weight management diet., retain from sodium intake Fall precautions PRN: MEDICATIONS Tylenol 650 mg po every 4 hrs for fever Zofran 4 mg IV every 6 hrs for n/v bowel regiment: lactulose 20 gm PO BID PRN constipation Pain management: [id number] mg p.o. for pain temperature headache Supportive measures: DVT ppx, GI ppx all questions answered time spent: > 35 min Supervising MD: c/d This document was generated in part using voice recognition software, occasional wrong word or sound alike substitutions may have occurred due to the inherent limitations of voice recognition software. Read the chart carefully and recognize using context, where the substitutions have occurred. Although every effort was made to edit the content, core finisher and typing errors may occur ATTESTATION BY PHYSICIAN I have seen and examined the patient. I reviewed the documentation, medical decision making, and treatment plan as noted by the mid-level provider above. I agree with the findings and plan of care. Rosana Holland MD, ELIZABETH NP Mar 19, 2024 16:18
--- NOTE | 2024-03-19 16:21 | HMCIMG ---
CHEST 1VW HISTORY: CHF COMPARISON: 09/06/2023 FINDINGS: A frontal projection of the chest was obtained. No acute pulmonary infiltrates is seen. The heart is borderline enlarged. Degenerative changes are seen. Prominent interstitial markings are seen. No evidence of aortic calcification is seen. IMPRESSION: 1. No acute pulmonary infiltrate is seen. Prominent interstitial markings.
[2024-03-19 16:23] LABS: ALBUMIN 3.9 g/dL (3.5-5.0); BILIRUBIN,TOTAL 0.7 mg/dL (0.2-1.0); MAGNESIUM 1.9 mg/dL (1.80-2.40); TOTAL PROTEIN, SERUM 7.3 g/dL (6.0-8.3)
[2024-03-19] MEDS ORDERED: acetaMINOPHEN 325 MG TAB PO PRN (16:30)
[2024-03-19] MEDS ORDERED: ondanSETRON 4MG INJ IVP PRN (16:30)
[2024-03-19] MEDS ORDERED: PoTASSium chloRIDE 20MEQ/100ML 100 ML IV PRN (16:30)
[2024-03-19] MEDS: furoSEMIDE 20MG VIAL IV SCH (16:35)
[2024-03-19] MEDS: AMIOdarone 150MG VIAL 150 MG in DEXTROSE 5%-WATER 100 ML IV SCH (16:35)
--- NOTE | 2024-03-19 17:06 | HMCIMG ---
US ARTERIAL BILAT LOW EXT DUPL HISTORY: Swelling COMPARISON: None TECHNIQUE: Bilateral lower extremity arterial Doppler ultrasound study was performed. FINDINGS: Normal triphasic arterial waveforms are noted in the common femoral, deep femoral, superficial femoral, popliteal, posterior tibial and dorsalis pedal arteries. On the right, the peak systolic velocity of the common femoral artery is 113 cm/s, the proximal femoral artery is 87 cm/s, the mid femoral artery is 107 cm/s, the distal femoral artery is 88 cm/s, the proximal popliteal artery is 70 cm/s, the distal popliteal artery is 53 cm/s, the anterior tibial artery is 69 cm/s, the posterior tibial artery artery is 92 cm/s,and the dorsalis pedal artery is 79 cm/s. On the left, the peak systolic velocity of the common femoral artery is 89 cm/s, the proximal femoral artery is 77 cm/s, the mid femoral artery is 82 cm/s, the distal femoral artery is 68 cm/s, the proximal popliteal artery is 69 cm/s, the distal popliteal artery is 70 cm/s, the anterior tibial artery is 67 cm/s, the posterior tibial artery artery is 55 cm/s,and the dorsalis pedal artery is 67 cm/s. IMPRESSION: 1. Atherosclerotic disease. 2. Otherwise normal triphasic arterial waveforms noted of the lower extremity artery system.
[2024-03-19] MEDS: AMIOdarone 900MG VIAL 360 MG in DEXTROSE 5%-WATER 200 ML IV SCH (17:13)
[2024-03-19] MEDS: PoTASSium chl 10% ELIXIR 20MEQ 20 MEQ/15 ML UDCUP PO PRN (18:46)
[2024-03-19 20:41] VITALS: O2SAT 97
[2024-03-19 20:58] VITALS: BP 161/113; PULSE 100; RESP 18; TEMP 98
[2024-03-19] MEDS: FAMOTIDINE 20MG TAB PO SCH (21:12)
[2024-03-19] MEDS: atorVAStatin 40 MG TABLET PO SCH (21:12)
[2024-03-19] MEDS: MAGNESIUM 2GM PREMIX 50ML 50 ML IV PRN (22:16)
[2024-03-19] MEDS: AMIOdarone 900MG VIAL 540 MG in DEXTROSE 5%-WATER 300 ML IV SCH (22:42)
[2024-03-19] MEDS ORDERED: CLON0.1T PO (22:52)
[2024-03-19] MEDS ORDERED: METO50TA18 PO (22:52)
[2024-03-19] MEDS ORDERED: ALBU18HF7 IH (22:56)
[2024-03-19 23:15] VITALS: BP 160/115; PULSE 127; RESP 16; TEMP 98.2
[2024-03-19 23:36] VITALS: BP 137/73; PULSE 104; RESP 16
[2024-03-20] VITALS (47 sets, daily range): BP systolic 115–146; BP diastolic 61–84; PULSE 59–69; RESP 12–39; TEMP 98–98.9; O2SAT 94–96
[2024-03-20] MEDS ORDERED: hydrALAZine 20MG/ML VIAL IV PRN
[2024-03-20] MEDS ORDERED: LACTULOSE 20 GM/30 ML UDCUP PO PRN
[2024-03-20] MEDS ORDERED: TEMAZepam 15 MG CAPSULE PO PRN
[2024-03-20] MEDS ORDERED: acetaMINOPHEN 650 MG SUPPOSITORY RC PRN
[2024-03-20] MEDS ORDERED: doCUSate SODIUM 100 MG CAP PO PRN
[2024-03-20] MEDS ORDERED: cloNIDine HCL 0.1 MG TABLET PO PRN (00:30)
--- NOTE | 2024-03-20 00:42 | NUR ---
SINUS PT CONVERTED TO NSR AT 0015 RATE IN 60'S.
[2024-03-20 04:43] LABS: THYROID STIMULATING HORMONE 13.58 uIU/mL (0.36-3.74)
[2024-03-20 05:37] LABS: CREATININE 1.1 mg/dL (0.5-1.0); POTASSIUM 3.2 mmol/L (3.5-5.1)
[2024-03-20] MEDS: levoTHYROxine 150 MCG TABLET PO SCH (06:15)
[2024-03-20] MEDS: IpraTROPium 0.5 MG/2.5 ML INH IH PRN (07:08)
--- NOTE | 2024-03-20 08:56 | CONS ---
[facility] CARDIOLOGY CONSULTATION NOTE Date Patient Seen: Mar 20, 2024 Time of Visit: 08:50 Reason for Consultation: [ A-fib] History of Present Illness: [Patient is a 63 yo F with PMH paroxysmal a-fib, HFrEF 35-40%, HTN. Patient came for her regular follow up in clinic yesterday and was found to have a-fib/a-flutter with rvr. She was placed on amiodarone gtt protocol and now is in normal sinus rhythm with HR 60s bpm. She is volume overloaded and we are admitting her for CHF exacerbation as well. ] Past Medical History: [ ] Past Surgical History: [ ] Family History: [ ] Social History: [ ] Habits: [Never] smoker. [Denies] alcohol consumption. [Denies] illicit drug use Home Meds: [ ] Current Meds: [ ] Review of Systems: CONST: [No fever, fatigue, or weight changes.] EYES: [No recent vision problems.] ENT: [No congestion, ear pain, or sore throat.] C/V: [No chest pain, palpitations, or edema.] RESP: [No cough, congestion, wheezing or shortness of breath.] GI: [No abdominal pain, nausea, vomiting, constipation, or diarrhea.] : [No incontinence or dysuria.] SKIN: [No rash.] NEURO: [No headache, focal numbness or weakness, dizziness, or seizures.] PSYCH: [No depression or anxiety.] HEME: [No abnormal bruising or bleeding.] LYMPH: [No swollen glands.] Physical Examination: GENERAL: [No acute distress.] HEAD: [Normal with no signs of head trauma.] EYES: [PERRLA, EOMI, conjunctiva and sclera normal.] ENT: [Hearing grossly intact, normal oropharynx.] NECK: [Supple without JVD. There is no tenderness, lymphadenopathy, or masses. No thyromegaly. Normal carotid upstrokes without bruits.] LUNGS: [Clear breath sounds bilaterally. There are right basilar rales one third of the way up the chest. No wheezes, or rhonchi.] HEART: [Normal rate and rhythm. Normal S1 and S2 without mumurs, gallop or rub.] VASC: [Peripheral pulses +2 bilaterally.] ABD: [Bowel sounds normal, soft, nontender, no masses, no organomegaly. No audible bruits.] : [Not examined] LYMPH: [No lymphadenopathy noted.] EXT: [2+ b/l edema.] SKIN: [No rashes or lesions noted.] NEURO: [Awake, alert, and oriented x3. No focal sensory or strength deficits noted.] Vital Signs (last 8hr) Date Time Temp Pulse Resp B/P (MAP) Pulse Ox O2 Delivery O2 Flow Rate FiO2 03/20/24 07:23 98.2 62 14 115/61 100 03/20/24 03:43 98.1 64 18 134/84 96 Room Air Laboratory: [ ] Hematology Labs: Test 03/19/24 15:44 Range/Units White Blood Count 6.8 4.8-10.8 K/uL Red Blood Count 4.79 4.00-5.50 MIL/uL Hemoglobin 15.6 12.0-16.0 g/dL Hematocrit 45.0 36-48 % Mean Corpuscular Volume 93.9 79-99 fL Mean Corpuscular Hemoglobin 32.6 27.0-33.0 pg Mean Corpuscular Hemoglobin Concent 34.7 32.0-36.0 g/dL Red Cell Distribution Width 12.2 11.0-15.5 % Platelet Count 204 130-400 K/uL Mean Platelet Volume 10.3 7.5-10.5 fL Immature Granulocyte % (Auto) 1.5 H 0-1 % Neutrophils (%) (Auto) 65.7 40.0-77.0 % Lymphocytes (%) (Auto) 22.7 21.0-51.0 % Monocytes (%) (Auto) 6.1 3.0-13.0 % Eosinophils (%) (Auto) 2.8 0.0-8.0 % Basophils (%) (Auto) 1.2 0.0-5.0 % Neutrophils # (Auto) 4.5 1.8-7.7 K/uL Lymphocytes # (Auto) 1.6 1.0-4.8 K/uL Monocytes # (Auto) 0.4 0.1-1.0 K/uL Eosinophils # (Auto) 0.19 0.00-0.70 K/uL Basophils # (Auto) 0.08 0.00-0.20 K/uL Absolute Immature Granulocyte (auto 0.10 0-1 K/uL Nucleated Red Blood Cells 0.0 0.0-0.19 % Chemistry Labs: Test 03/20/24 03:41 03/19/24 15:44 Range/Units Sodium Level 146 H 136-145 mmol/L Potassium Level 3.2 L 3.5-5.1 mmol/L Chloride Level 107 101-111 mmol/L Carbon Dioxide Level 26 21-32 mmol/L Blood Urea Nitrogen 14 7-18 mg/dL Creatinine 1.1 H 0.5-1.0 mg/dL Glomerular Filtration Rate Calc 56 >90 mL/min Random Glucose 97 70-105 mg/dL Total Calcium 8.5 8.5-10.1 mg/dL Triglycerides Level 123 30-200 mg/dL Cholesterol Level 167 # <200 mg/dL LDL Cholesterol 114 H 0-99 mg/dL HDL Cholesterol 39 35-85 mg/dL Thyroid Stimulating Hormone (TSH) 13.58 #H 0.36-3.74 uIU/mL Magnesium Level 1.90 1.80-2.40 mg/dL Total Bilirubin 0.7 0.2-1.0 mg/dL Aspartate Amino Transf (AST/SGOT) 37 10-37 U/L Alanine Aminotransferase (ALT/SGPT) 49 12-78 U/L Alkaline Phosphatase 144 H 50-136 U/L Total Protein 7.3 6.0-8.3 g/dL Albumin 3.9 3.5-5.0 g/dL Diagnostics / Radiology: [Copy/Paste Echos/Imaging Report here] Assessment: [ HFrEF exacerbation Paroxysmal a-fib] Plan: [#HFrEF exacerbation -Non ischemic -Most recent 2d echo with LVEF -likely related to tachyarrhythmia -c/w lasix 20 mg IV q8h Paroxysmal a-fib -c/w amiodarone gtt protocol and ordered po amiodarone for tonight -eliquis 5 mg bid Nora Angeles MD ] NORA ANGELES MD Mar 20, 2024 08:56
[2024-03-20] MEDS ORDERED: furoSEMIDE 20 MG TABLET PO SCH (09:00)
[2024-03-20] MEDS ORDERED: LoSARTan 100 MG TABLET PO SCH (09:00)
[2024-03-20] MEDS: LoSARTan 100 MG TABLET PO SCH (09:57)
--- NOTE | 2024-03-20 13:40 | NUR ---
DCP: HOME Sw met with pt who works at [employer], lives at home with her Tyshawn [phone]. Pt denies need for assistance with ADLS, home management or meal prep. PT is seen at [facility] for medical care and meds. Uses [facility] for rx. Pt denies dc needs and will return home with family Addendum: 03/20/24 at 1346 by NABIL RIVAS Amended: Links added.
--- NOTE | 2024-03-20 14:52 | HMCSR ---
APPROVED REPORT EXAM: Two-dimensional and M-mode echocardiogram with Doppler and color Doppler. INDICATION ICD: Heart Failure 2D Dimensions RVDd4.1 cmLVEF(%)62.0 (>50%)LVED Vol(simp.)72.1 mL IVSd1.1 (0.7-1.1cm)FS(%)33 %LVES Vol(simp.)27.4 mL LVDd4.8 (3.8-5.6cm)LA (2D)4.5 (1.6-4.0cm)LVEF(%, simp.)62 % PWd1.2 (0.7-1.1cm)Ao Root(2D)3.1 (2.0-3.7cm)LA ESV INDEX (4CH)45.40 mL/m2 IVSs1.3 cmLVOT diam2.7 (1.8-2.4cm)LA ESV INDEX (2CH)36.20 mL/m2 LVDs3.2 (2.5-4.0cm)LA ESV INDEX (BP)39.50 mL/m2 PWs1.4 cm Deformation Strain Apical 423.0 % Apical 222.0 % Apical 321.0 % Global Eomlyz50.0 % M-Mode Dimensions EPSS1.3 cm LA (MM)4.6 (1.6-4.0cm) Ao Root(MM)3.3 (2.0-3.7cm) Aortic Valve AoV VTI0.3 mAo Mean GR6.0 mmHgLVOT VTI0.22 m REYES (VMAX)3.9 cm2AVA (VTI) 3.9 cm2 Mitral Valve MV E Vmax88.8 cm/sDECEL Hrrl062 ms MV A Vmax23.8 cm/sP 1/2 T78 ms E/A ratio3.7MVA (PHT)2.8 cm2 MR Max PG30 mmHg TDI E/E' Csutmv90.1E/E' Ioojsov92.1 Medial E' Peak V5.90 cm/sLateral E' Peak V8.80 cm/s Pulmonary Valve PV Vmax1.5 m/s PV Peak GR8.8 mmHg Tricuspid Valve TR Vmax2.4 m/s TR Peak GR22.3 mmHg Left Ventricle The left ventricle is normal size. GLS -22%. There is normal left ventricular wall thickness. LVEF is 60-65%. The left ventricular diastolic function is normal. Right Ventricle The right ventricle is normal size. The right ventricular systolic function is normal. Atria The left atrium size is mildly dilated. The right atrium is mildly dilated. Aortic Valve The aortic valve is normal in structure. No aortic regurgitation is present. There is no aortic valvu lar stenosis. Mitral Valve The mitral valve is normal in structure. Mitral regurgitation is trace. There is no mitral valve sten osis. Tricuspid Valve The tricuspid valve is normal in structure. There is mild tricuspid valve regurgitation noted. Pulmonic Valve The pulmonary valve is normal in structure. There is no pulmonic valvular regurgitation. Great Vessels The aortic root is normal in size. IVC is not well visualized. Pericardium There is no pericardial effusion. Other Information Quality : FairRhythm : NSR Conclusion LVEF is 60-65%. The left atrium size is mildly dilated. Mitral regurgitation is trace. Mild tricuspid valve regurgitation.
--- NOTE | 2024-03-20 15:23 | PN ---
[facility] PROGRESS NOTE Date of Service: Mar 20, 2024 Time of Service: 15:19 SUBJECTIVE: 03/20 patient seen at bedside, no acute events overnight. She has been on IV amiodarone and converted back to sinus. Cardiology transitioned her to p.o. amiodarone, we will continue to monitor on telemetry. Vitals and labs relatively unremarkable, potassium mildly low at 3.2, will be repleted according to protocol. REVIEW OF SYSTEMS A 14 point ROS was obtained all relevant positives were documented otherwise ROS negative PHYSICAL EXAM GENERAL APPEARANCE: The patient is awake, alert, and oriented, in no acute cardiopulmonary distress. Obese NEUROLOGICAL: Cranial nerves II-XII grossly intact. Motor is 5/5 in bilateral upper and lower extremities proximal to distal. No sensory deficits. HEENT: Face is symmetric. Pupils are equal and reactive. Extraocular movements are intact. NECK: Supple. No JVD. No thyromegaly. No submental, submandibular, pre- /postauricular, occipital or supraclavicular lymphadenopathy. CHEST: Normal chest expansion. No Telemetry. LUNGS: Absence of any rales, rhonchi or any wheezing. CARDIOVASCULAR inr regular a flutter S1 and S2 normal. No appreciable rubs, murmurs or gallops. ABDOMEN: Soft, nontender, and nondistended. There is no rebound, voluntary guarding, or rigidity. : Deferred. No Blue. EXTREMITIES: ++edematous and not cyanotic. No clubbing. Good capillary refill. SKIN: No skin breakdown. Vital Signs (last 8hr) Date Time Temp Pulse Resp B/P (MAP) Pulse Ox O2 Delivery O2 Flow Rate FiO2 03/20/24 11:30 68 19 94 03/20/24 11:19 98.4 68 21 138/72 95 03/20/24 10:15 65 20 95 03/20/24 10:00 60 20 92 03/20/24 09:45 63 28 96 03/20/24 09:30 64 24 96 03/20/24 09:15 66 24 94 03/20/24 09:00 66 19 94 03/20/24 08:45 63 17 94 03/20/24 08:30 64 27 95 03/20/24 08:15 64 25 95 03/20/24 08:00 64 27 96 03/20/24 08:00 94 Room Air* 0 21 03/20/24 07:45 98.1 64 19 97 03/20/24 07:30 63 20 96 03/20/24 07:23 98.2 62 14 115/61 100 LABS: Laboratory: Test 03/20/24 03:41 03/19/24 15:44 Range/Units Sodium Level 146 H 136-145 mmol/L Potassium Level 3.2 L 3.5-5.1 mmol/L Chloride Level 107 101-111 mmol/L Carbon Dioxide Level 26 21-32 mmol/L Blood Urea Nitrogen 14 7-18 mg/dL Creatinine 1.1 H 0.5-1.0 mg/dL Glomerular Filtration Rate Calc 56 >90 mL/min Random Glucose 97 70-105 mg/dL Total Calcium 8.5 8.5-10.1 mg/dL Triglycerides Level 123 30-200 mg/dL Cholesterol Level 167 # <200 mg/dL LDL Cholesterol 114 H 0-99 mg/dL HDL Cholesterol 39 35-85 mg/dL Thyroid Stimulating Hormone (TSH) 13.58 #H 0.36-3.74 uIU/mL White Blood Count 6.8 4.8-10.8 K/uL Red Blood Count 4.79 4.00-5.50 MIL/uL Hemoglobin 15.6 12.0-16.0 g/dL Hematocrit 45.0 36-48 % Mean Corpuscular Volume 93.9 79-99 fL Mean Corpuscular Hemoglobin 32.6 27.0-33.0 pg Mean Corpuscular Hemoglobin Concent 34.7 32.0-36.0 g/dL Red Cell Distribution Width 12.2 11.0-15.5 % Platelet Count 204 130-400 K/uL Mean Platelet Volume 10.3 7.5-10.5 fL Immature Granulocyte % (Auto) 1.5 H 0-1 % Neutrophils (%) (Auto) 65.7 40.0-77.0 % Lymphocytes (%) (Auto) 22.7 21.0-51.0 % Monocytes (%) (Auto) 6.1 3.0-13.0 % Eosinophils (%) (Auto) 2.8 0.0-8.0 % Basophils (%) (Auto) 1.2 0.0-5.0 % Neutrophils # (Auto) 4.5 1.8-7.7 K/uL Lymphocytes # (Auto) 1.6 1.0-4.8 K/uL Monocytes # (Auto) 0.4 0.1-1.0 K/uL Eosinophils # (Auto) 0.19 0.00-0.70 K/uL Basophils # (Auto) 0.08 0.00-0.20 K/uL Absolute Immature Granulocyte (auto 0.10 0-1 K/uL Nucleated Red Blood Cells 0.0 0.0-0.19 % Magnesium Level 1.90 1.80-2.40 mg/dL Total Bilirubin 0.7 0.2-1.0 mg/dL Aspartate Amino Transf (AST/SGOT) 37 10-37 U/L Alanine Aminotransferase (ALT/SGPT) 49 12-78 U/L Alkaline Phosphatase 144 H 50-136 U/L Total Protein 7.3 6.0-8.3 g/dL Albumin 3.9 3.5-5.0 g/dL Current Medications Medications (Trade) Dose Ordered Sig/Hunter Route PRN Reason Start Time Stop Time Status Last Admin Dose Admin Acetaminophen (TYLenol 325MG TAB) 650 mg Q4H PRN PO TEMPERATURE GREATER THAN 101.5 03/19/24 16:30 04/18/24 16:29 Acetaminophen (TYLenol 325MG TAB) 650 mg Q6H PRN PO MILD PAIN (1-3) 03/20/24 01:00 04/19/24 00:59 Acetaminophen (TYLenol 650MG SUPPOSITORY) 650 mg Q6H PRN RC FEVER / MILD PAIN 1-3 IF NPO 03/20/24 00:00 04/19/24 00:00 Amiodarone HCl (pacERONE 200MG) 200 mg BID PO 03/20/24 17:00 04/19/24 16:59 Amiodarone HCl 150 mg/Dextrose 100 ml @ 0 mls/hr PROTOCOL IV 03/19/24 16:00 03/20/24 09:06 DC 03/19/24 16:35 600 MLS/HR Amiodarone HCl 360 mg/Dextrose 200 ml @ 0 mls/hr PROTOCOL IV 03/19/24 16:00 03/19/24 22:00 DC 03/19/24 17:13 0 MLS/HR Amiodarone HCl 540 mg/Dextrose 300 ml @ 0 mls/hr PROTOCOL IV 03/19/24 22:00 04/18/24 21:59 03/19/24 22:42 16.7 MLS/HR Atorvastatin Calcium (LIPItor 40MG) 40 mg HS PO 03/19/24 21:00 04/18/24 20:59 03/19/24 21:12 40 MG Clonidine HCl (CATApres 0.1 mg TAB) 0.1 mg DAILY PRN PO IF SBP GREATER THAN 160 03/20/24 00:30 03/20/24 07:30 DC Docusate Sodium (COLace 100MG CAP) 100 mg BID PRN PO CONSTIPATION 03/20/24 00:00 04/19/24 00:00 Famotidine (Pepcid 20mg Tab) 20 mg BID PO 03/19/24 21:00 04/18/24 20:59 03/20/24 09:57 20 MG Furosemide (LASix 20MG TAB) 20 mg DAILY PO 03/20/24 09:00 03/20/24 00:06 DC Furosemide (LASix 20MG VIAL) 20 mg Q8H IV 03/19/24 16:00 04/18/24 15:59 03/20/24 09:57 20 MG Guaifenesin (RobiTUSSin SUGAR-FREE 100 MG/ 5 ML UDCUP) 400 mg Q6H6 PRN PO COUGH 03/20/24 00:00 04/19/24 00:00 Home Med (Home Medication) BID PO 03/20/24 09:00 04/19/24 08:59 03/20/24 09:59 1 EACH Hydralazine HCl (APRESOLine 20MG INJ) 10 mg Q2H PRN IV SBP GREATER THAN 160 03/20/24 00:00 04/19/24 00:00 Ipratropium [place] (AtrovENT UD) 0.5 mg Q6H PRN IH SHORTNESS OF BREATH 03/20/24 00:00 04/19/24 00:00 03/20/24 07:08 0.5 MG Lactulose (Constulose 20gm/ 30ml Udcup) 20 gm Q6H PRN PO CONSTIPATION 03/20/24 00:00 04/19/24 00:00 Levothyroxine Sodium (SYNTHroid 150MCG TAB) 150 mcg SYN PO 03/20/24 06:30 04/19/24 06:29 03/20/24 06:15 150 MCG Losartan Potassium (CozAAR 100MG TAB) 100 mg DAILY PO 03/20/24 09:00 03/20/24 00:07 DC Losartan Potassium (CozAAR 100MG TAB) 100 mg DAILY PO 03/20/24 09:00 04/19/24 08:59 03/20/24 09:57 100 MG Magnesium Sulfate 50 ml @ 0 mls/hr PROTOCOL PRN IV low mag level 03/19/24 16:30 04/18/24 16:29 03/19/24 22:16 25 MLS/HR Miscellaneous Medication (Rosuvastatin Calcium ) 40 mg HS PO 03/20/24 21:00 03/20/24 00:11 DC Ondansetron HCl (zoFRAN 4MG INJ) 4 mg Q6H PRN IVP NAUSEA/VOMITING 03/19/24 16:30 04/18/24 16:29 Potassium Chloride 100 ml @ 50 mls/hr PROTOCOL IV 03/19/24 16:00 04/18/24 15:59 Potassium Chloride 100 ml @ 100 mls/hr AD PRN IV POTASSIUM PROTOCOL 03/19/24 16:30 04/18/24 16:29 Potassium Chloride (K-Dur/Klor-Con 20meq) 20 meq AD PRN PO POTASSIUM PROTOCOL 03/19/24 16:30 04/18/24 16:29 Potassium Chloride (KCl 10% Elixir 20meq/15ml) 20 meq AD PRN PO POTASSIUM PROTOCOL 03/19/24 16:30 04/18/24 16:29 03/20/24 09:57 20 MEQ Temazepam (restORIL 15 MG CAP) 15 mg HS PRN PO INSOMNIA/SLEEP 03/20/24 00:00 04/19/24 00:00 DIAGNOSTICS / RADIOLOGY: [ ] ASSESSMENT: A flutter with RVR requiring amiodarone drip POA Acute CHF with exacerbation POA electrolytes derangement: hypokalemia hypernatremia POA Morbid obesity BMI 50.8 Dyspnea on exertion POA nonadherence to medication POA chronic problems: Hypertension, hyperlipidemia, hypothyroidism PLAN: Transitioned to p.o. amiodarone Continue potassium protocol Continue losartan 100 mg Q 24 hours Continue levothyroxine 150 mcg Q 24 hours Continue telemetry Continue furosemide 20 mg Q 8 hours Cardiology consulted, appreciate recommendations, Disposition: Pending continue observation, Cardiology recommendations KEATTS,BENTON A MD Mar 20, 2024 15:23
[2024-03-20] MEDS: AMIOdarone 200 MG TABLET PO SCH (17:16)
[2024-03-20] MEDS ORDERED: NON-FORMULARY MEDICATION 1 EACH (Rosuvastatin Calcium 40 MG) PO SCH (21:00)
[2024-03-21] VITALS (9 sets, daily range): BP systolic 128–165; BP diastolic 76–87; PULSE 60–98; RESP 16–21; TEMP 98.1–99.7; O2SAT 96
[2024-03-21 04:14] LABS: BASOPHILS # (AUTO) 0.06 K/uL (0.00-0.20); BASOPHILS % (AUTO) 0.8 % (0.0-5.0); EOSINOPHILS # (AUTO) 0.29 K/uL (0.00-0.70); EOSINOPHILS % (AUTO) 3.9 % (0.0-8.0); HEMATOCRIT 43.5 % (36-48); IMMATURE GRANULOCYTE ABSOLUTE 0.09 K/uL (0-1); LYMPHOCYTES # (AUTO) 1.9 K/uL (1.0-4.8); LYMPHOCYTES % (AUTO) 25.6 % (21.0-51.0); MEAN CORPUSCULAR HEMOGLOBIN 32.2 pg (27.0-33.0); MEAN CORPUSCULAR HGB CONC 33.6 g/dL (32.0-36.0); MONOCYTES # (AUTO) 0.6 K/uL (0.1-1.0); MONOCYTES % (AUTO) 7.5 % (3.0-13.0); NEUTROPHILS # (AUTO) 4.5 K/uL (1.8-7.7); PLATELET COUNT (AUTO) 188 K/uL (130-400); RED BLOOD CELL COUNT(AUTO) 4.53 MIL/uL (4.00-5.50); RED CELL DISTRIBUTION WIDTH 12.4 % (11.0-15.5); WHITE BLOOD COUNT (AUTO) 7.4 K/uL (4.8-10.8)
[2024-03-21 04:22] LABS: CREATININE 1.1 mg/dL (0.5-1.0); MAGNESIUM 2.3 mg/dL (1.80-2.40); PHOSPHORUS 4.4 mg/dL (2.5-4.9); POTASSIUM 3.3 mmol/L (3.5-5.1)
[2024-03-21] MEDS: PoTASSium chloRIDE 20MEQ ER 20 MEQ ERTAB PO PRN (05:39)
--- NOTE | 2024-03-21 07:48 | PN ---
[facility] CARDIOLOGY PROGRESS NOTE Date Patient Seen: Mar 21, 2024 Time of Visit: 07:40 Interval History: [Now sinus bradycardia on amiodarone po. ] Physical Examination: GENERAL: [No acute distress.] HEAD: [Normal with no signs of head trauma.] EYES: [PERRLA, EOMI, conjunctiva and sclera normal.] ENT: [Hearing grossly intact, normal oropharynx.] NECK: [Supple without JVD. There is no tenderness, lymphadenopathy, or masses. No thyromegaly. Normal carotid upstrokes without bruits.] LUNGS: [Clear breath sounds bilaterally. There are right basilar rales one third of the way up the chest. No wheezes, or rhonchi.] HEART: [Normal rate and rhythm. Normal S1 and S2 without mumurs, gallop or rub.] VASC: [Peripheral pulses +2 bilaterally.] ABD: [Bowel sounds normal, soft, nontender, no masses, no organomegaly. No audible bruits.] : [Not examined] LYMPH: [No lymphadenopathy noted.] EXT: [2+ b/l edema.] SKIN: [No rashes or lesions noted.] NEURO: [Awake, alert, and oriented x3. No focal sensory or strength deficits noted.] Laboratory: [ ] Hematology Labs: Test 03/21/24 03:43 Range/Units White Blood Count 7.4 4.8-10.8 K/uL Red Blood Count 4.53 4.00-5.50 MIL/uL Hemoglobin 14.6 12.0-16.0 g/dL Hematocrit 43.5 36-48 % Mean Corpuscular Volume 96.0 79-99 fL Mean Corpuscular Hemoglobin 32.2 27.0-33.0 pg Mean Corpuscular Hemoglobin Concent 33.6 32.0-36.0 g/dL Red Cell Distribution Width 12.4 11.0-15.5 % Platelet Count 188 130-400 K/uL Mean Platelet Volume 10.0 7.5-10.5 fL Immature Granulocyte % (Auto) 1.2 H 0-1 % Neutrophils (%) (Auto) 61.0 40.0-77.0 % Lymphocytes (%) (Auto) 25.6 21.0-51.0 % Monocytes (%) (Auto) 7.5 3.0-13.0 % Eosinophils (%) (Auto) 3.9 0.0-8.0 % Basophils (%) (Auto) 0.8 0.0-5.0 % Neutrophils # (Auto) 4.5 1.8-7.7 K/uL Lymphocytes # (Auto) 1.9 1.0-4.8 K/uL Monocytes # (Auto) 0.6 0.1-1.0 K/uL Eosinophils # (Auto) 0.29 0.00-0.70 K/uL Basophils # (Auto) 0.06 0.00-0.20 K/uL Absolute Immature Granulocyte (auto 0.09 0-1 K/uL Nucleated Red Blood Cells 0.0 0.0-0.19 % Chemistry Labs: Test 03/21/24 03:43 03/20/24 03:41 03/19/24 15:44 Range/Units Sodium Level 145 136-145 mmol/L Potassium Level 3.3 L 3.5-5.1 mmol/L Chloride Level 107 101-111 mmol/L Carbon Dioxide Level 30 21-32 mmol/L Blood Urea Nitrogen 15 7-18 mg/dL Creatinine 1.1 H 0.5-1.0 mg/dL Glomerular Filtration Rate Calc 56 >90 mL/min Random Glucose 102 70-105 mg/dL Total Calcium 8.7 8.5-10.1 mg/dL Phosphorus Level 4.4 2.5-4.9 mg/dL Magnesium Level 2.30 1.80-2.40 mg/dL Triglycerides Level 123 30-200 mg/dL Cholesterol Level 167 # <200 mg/dL LDL Cholesterol 114 H 0-99 mg/dL HDL Cholesterol 39 35-85 mg/dL Thyroid Stimulating Hormone (TSH) 13.58 #H 0.36-3.74 uIU/mL Total Bilirubin 0.7 0.2-1.0 mg/dL Aspartate Amino Transf (AST/SGOT) 37 10-37 U/L Alanine Aminotransferase (ALT/SGPT) 49 12-78 U/L Alkaline Phosphatase 144 H 50-136 U/L Total Protein 7.3 6.0-8.3 g/dL Albumin 3.9 3.5-5.0 g/dL Diagnostics / Radiology: [Copy/Paste Echos/Imaging Report here] Impression and Plan: [Obesity Hypothyroidism Paroxysmal a-fib] Plan: [#Paroxysmal a-fib with volume overload -s/p amiodarone gtt protocol and ordered po amiodarone 200 mg bid x7 days, then daily -eliquis 5 mg bid -diuresed well, will stop lasix -repeat 2d echo shows LVEF recovery of 60% #Hypothyroidism -home dose is levothyroxine 150 mcg qd-->increased to 175 mcg (will need synthroid on discharge). -TSH high at 13, pending Free T4 and T3. Consulted Dr Liu with EP for alternative choices for medication for a-fib given patient is self pay and we have abnormal thyroid function testing. Unclear if it is due to underdosing of levothyroxine or side effect of amiodarone -has also been on zep bound for 2 months Nora Angeles MD ] NORA ANGELES MD Mar 21, 2024 07:48
[2024-03-21] MEDS: guaiFENesin SUGAR-FREE 100 MG/5 ML UDCUP PO PRN (08:08)
--- NOTE | 2024-03-21 08:55 | HMCIMG ---
CHEST 1VW HISTORY: CHF COMPARISON: 03/19/2024 FINDINGS: A frontal projection of the chest was obtained. No acute pulmonary infiltrates is seen. The heart is borderline enlarged. Prominent interstitial markings are seen. Degenerative changes are seen. Aortic calcifications are seen. IMPRESSION: 1. No acute pulmonary infiltrate is seen.
[2024-03-21] MEDS: metoPROLOL tartRATE 25 MG TAB ONE (12:24)
[2024-03-21] MEDS: metoPROLOL tartRATE 25 MG TAB PO ONE (12:25)
--- NOTE | 2024-03-21 13:28 | CONS ---
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 She was admitted from the office on 03/19/2024 due to atrial flutter with rapid ventricular response. She was started on amiodarone infusion and converted to sinus rhythm at 12:15 AM on 03/20/2024. underwent echocardiogram 03/20/2024 which demonstrates an ejection fraction of 60 to 65% with normal diastolic function, mildly dilated left atrium and trace mitral valve regurgitation. This is in contrast to an ejection fraction of 45 to 50% in August 2022. She was also found to be hypokalemic and volume overloaded, and has been started on IV furosemide 20 mg every 8 hours. Prior to admission, she had been maintained on amiodarone 200 mg once daily. The amiodarone was recently titrated to twice daily in August 2023 then decreased back to 200 mg once daily in December 2023. She developed hypothyroidism felt to be related to Amiodarone. Her TSH on this admission is 13.58. She currently feels well and states that the palpitations have resolved. She also reports improvement in shortness of breath. Patient History: PAST MEDICAL HISTORY: As noted above. SOCIAL HISTORY: She does not drink or smoke. SURGICAL HISTORY: Atrial flutter ablation in August 2022 Allergies: Coded Allergies: No Known Allergies (Verified Allergy, Unknown, 08/14/21) Additional RoS: Negative with exception of the HPI Vital Signs Vital Signs 03/20/24 03/21/24 19:15 11:46 Temp 98.2 Pulse 98 Resp 21 B/P (MAP) 141/83 Pulse Ox 96 O2 Delivery Room Air O2 Flow Rate 0 FiO2 21 Appearance: Well dev, well nourished Eyes: EOM Normal, Normal Conjuctivae/eyelid Ear/Nose/Mouth/Throat: Landmarks WNL Neck: Symmetric, trach midline Cardiovascular: Regular Rate, Regular Rhythm Respiratory: Lungs clear Laboratory Tests Test 03/19/24 15:44 03/20/24 03:41 03/21/24 03:43 Range/Units White Blood Count 6.8 7.4 4.8-10.8 K/uL Red Blood Count 4.79 4.53 4.00-5.50 MIL/uL Hemoglobin 15.6 14.6 12.0-16.0 g/dL Hematocrit 45.0 43.5 36-48 % Mean Corpuscular Volume 93.9 96.0 79-99 fL Mean Corpuscular Hemoglobin 32.6 32.2 27.0-33.0 pg Mean Corpuscular Hemoglobin Concent 34.7 33.6 32.0-36.0 g/dL Red Cell Distribution Width 12.2 12.4 11.0-15.5 % Platelet Count 204 188 130-400 K/uL Mean Platelet Volume 10.3 10.0 7.5-10.5 fL Immature Granulocyte % (Auto) 1.5 1.2 0-1 % Neutrophils (%) (Auto) 65.7 61.0 40.0-77.0 % Lymphocytes (%) (Auto) 22.7 25.6 21.0-51.0 % Monocytes (%) (Auto) 6.1 7.5 3.0-13.0 % Eosinophils (%) (Auto) 2.8 3.9 0.0-8.0 % Basophils (%) (Auto) 1.2 0.8 0.0-5.0 % Neutrophils # (Auto) 4.5 4.5 1.8-7.7 K/uL Lymphocytes # (Auto) 1.6 1.9 1.0-4.8 K/uL Monocytes # (Auto) 0.4 0.6 0.1-1.0 K/uL Eosinophils # (Auto) 0.19 0.29 0.00-0.70 K/uL Basophils # (Auto) 0.08 0.06 0.00-0.20 K/uL Absolute Immature Granulocyte (auto 0.10 0.09 0-1 K/uL Nucleated Red Blood Cells 0.0 0.0 0.0-0.19 % Sodium Level 147 146 145 136-145 mmol/L Potassium Level 3.2 3.2 3.3 3.5-5.1 mmol/L Chloride Level 107 107 107 101-111 mmol/L Carbon Dioxide Level 29 26 30 21-32 mmol/L Blood Urea Nitrogen 12 14 15 7-18 mg/dL Creatinine 1.0 1.1 1.1 0.5-1.0 mg/dL Glomerular Filtration Rate Calc 63 56 56 >90 mL/min Random Glucose 98 97 102 70-105 mg/dL Total Calcium 8.8 8.5 8.7 8.5-10.1 mg/dL Magnesium Level 1.90 2.30 1.80-2.40 mg/dL Total Bilirubin 0.7 0.2-1.0 mg/dL Aspartate Amino Transf (AST/SGOT) 37 10-37 U/L Alanine Aminotransferase (ALT/SGPT) 49 12-78 U/L Alkaline Phosphatase 144 50-136 U/L Total Protein 7.3 6.0-8.3 g/dL Albumin 3.9 3.5-5.0 g/dL Triglycerides Level 123 30-200 mg/dL Cholesterol Level 167 <200 mg/dL LDL Cholesterol 114 0-99 mg/dL HDL Cholesterol 39 35-85 mg/dL Thyroid Stimulating Hormone (TSH) 13.58 0.36-3.74 uIU/mL Phosphorus Level 4.4 2.5-4.9 mg/dL Free Thyroxine (T4) Direct 1.24 0.76-1.46 ng/dL Free Triiodothyronine (T3) pg/mL 1.78 2.18-3.98 pg/mL ASSESSMENT: 1. Persistent atrial fibrillation. 2. History of tachycardia mediated cardiomyopathy. 3. Obstructive sleep apnea. 4. Type 2 diabetes mellitus. 5. Hypertension. 6. Hypothyroidism, acquired. PLAN: 1. She has been maintained on amiodarone after undergoing cardioversion in August 2022. She was admitted 03/19/2024 due to recurrence of atrial fibrillation. She also was recently diagnosed with hypothyroidism, felt to be amiodarone related. 2. Given her young age and the acquired hypothyroidism, we recommend that amiodarone be discontinued. Alternative antiarrhythmic therapy includes propafenone, dofetilide and sotalol. There is concern that both propafenone and sotalol would be ineffective at maintaining sinus rhythm as she began having recurrences on amiodarone, which is the most effective. Therefore dofetilide is the most appropriate alternative. 3. We will discontinue amiodarone and allow at a 2 to 4-week washout period Before starting dofetilide. We will adopt a rate control strategy temporarily with metoprolol tartrate 25 mg twice daily, which can be adjusted as needed. 4. We will schedule a direct admission for initiation of dofetilide in the near future. 5. Recommend anticoagulation with Eliquis 5 mg twice daily. We will request case management to help with enrolling her in a patient assistance program. 6. Anticipate discharge home tomorrow if her rhythm remained stable. ESTHER STYLES Mar 21, 2024 13:28
--- NOTE | 2024-03-21 14:50 | PN ---
[facility] PROGRESS NOTE Date of Service: Mar 21, 2024 Time of Service: 14:41 SUBJECTIVE: 03/20 patient seen at bedside, no acute events overnight. She has been on IV amiodarone and converted back to sinus. Cardiology transitioned her to p.o. amiodarone, we will continue to monitor on telemetry. Vitals and labs relatively unremarkable, potassium mildly low at 3.2, will be repleted according to protocol. 03/21 patient seen at bedside, no acute events overnight. Cardiology adjusting her medications, we will continue observation and reassess again tomorrow. She is been rate controlled, amiodarone has been held. REVIEW OF SYSTEMS A 14 point ROS was obtained all relevant positives were documented otherwise ROS negative PHYSICAL EXAM GENERAL APPEARANCE: The patient is awake, alert, and oriented, in no acute cardiopulmonary distress. Obese NEUROLOGICAL: Cranial nerves II-XII grossly intact. Motor is 5/5 in bilateral upper and lower extremities proximal to distal. No sensory deficits. HEENT: Face is symmetric. Pupils are equal and reactive. Extraocular movements are intact. NECK: Supple. No JVD. No thyromegaly. No submental, submandibular, pre- /postauricular, occipital or supraclavicular lymphadenopathy. CHEST: Normal chest expansion. No Telemetry. LUNGS: Absence of any rales, rhonchi or any wheezing. CARDIOVASCULAR inr regular a flutter S1 and S2 normal. No appreciable rubs, murmurs or gallops. ABDOMEN: Soft, nontender, and nondistended. There is no rebound, voluntary guarding, or rigidity. : Deferred. No Blue. EXTREMITIES: ++edematous and not cyanotic. No clubbing. Good capillary refill. SKIN: No skin breakdown. Vital Signs (last 8hr) Date Time Temp Pulse Resp B/P (MAP) Pulse Ox O2 Delivery O2 Flow Rate FiO2 03/21/24 11:46 98.2 98 21 141/83 96 Room Air 03/21/24 08:00 99.7 63 19 150/77 95 Room Air LABS: Laboratory: Test 03/21/24 03:43 03/20/24 03:41 03/19/24 15:44 Range/Units White Blood Count 7.4 4.8-10.8 K/uL Red Blood Count 4.53 4.00-5.50 MIL/uL Hemoglobin 14.6 12.0-16.0 g/dL Hematocrit 43.5 36-48 % Mean Corpuscular Volume 96.0 79-99 fL Mean Corpuscular Hemoglobin 32.2 27.0-33.0 pg Mean Corpuscular Hemoglobin Concent 33.6 32.0-36.0 g/dL Red Cell Distribution Width 12.4 11.0-15.5 % Platelet Count 188 130-400 K/uL Mean Platelet Volume 10.0 7.5-10.5 fL Immature Granulocyte % (Auto) 1.2 H 0-1 % Neutrophils (%) (Auto) 61.0 40.0-77.0 % Lymphocytes (%) (Auto) 25.6 21.0-51.0 % Monocytes (%) (Auto) 7.5 3.0-13.0 % Eosinophils (%) (Auto) 3.9 0.0-8.0 % Basophils (%) (Auto) 0.8 0.0-5.0 % Neutrophils # (Auto) 4.5 1.8-7.7 K/uL Lymphocytes # (Auto) 1.9 1.0-4.8 K/uL Monocytes # (Auto) 0.6 0.1-1.0 K/uL Eosinophils # (Auto) 0.29 0.00-0.70 K/uL Basophils # (Auto) 0.06 0.00-0.20 K/uL Absolute Immature Granulocyte (auto 0.09 0-1 K/uL Nucleated Red Blood Cells 0.0 0.0-0.19 % Sodium Level 145 136-145 mmol/L Potassium Level 3.3 L 3.5-5.1 mmol/L Chloride Level 107 101-111 mmol/L Carbon Dioxide Level 30 21-32 mmol/L Blood Urea Nitrogen 15 7-18 mg/dL Creatinine 1.1 H 0.5-1.0 mg/dL Glomerular Filtration Rate Calc 56 >90 mL/min Random Glucose 102 70-105 mg/dL Total Calcium 8.7 8.5-10.1 mg/dL Phosphorus Level 4.4 2.5-4.9 mg/dL Magnesium Level 2.30 1.80-2.40 mg/dL Free Thyroxine (T4) Direct 1.24 0.76-1.46 ng/dL Free Triiodothyronine (T3) pg/mL 1.78 L 2.18-3.98 pg/mL Triglycerides Level 123 30-200 mg/dL Cholesterol Level 167 # <200 mg/dL LDL Cholesterol 114 H 0-99 mg/dL HDL Cholesterol 39 35-85 mg/dL Thyroid Stimulating Hormone (TSH) 13.58 #H 0.36-3.74 uIU/mL Total Bilirubin 0.7 0.2-1.0 mg/dL Aspartate Amino Transf (AST/SGOT) 37 10-37 U/L Alanine Aminotransferase (ALT/SGPT) 49 12-78 U/L Alkaline Phosphatase 144 H 50-136 U/L Total Protein 7.3 6.0-8.3 g/dL Albumin 3.9 3.5-5.0 g/dL Current Medications Medications (Trade) Dose Ordered Sig/Hunter Route PRN Reason Start Time Stop Time Status Last Admin Dose Admin Acetaminophen (TYLenol 325MG TAB) 650 mg Q4H PRN PO TEMPERATURE GREATER THAN 101.5 03/19/24 16:30 04/18/24 16:29 Acetaminophen (TYLenol 325MG TAB) 650 mg Q6H PRN PO MILD PAIN (1-3) 03/20/24 01:00 04/19/24 00:59 Acetaminophen (TYLenol 650MG SUPPOSITORY) 650 mg Q6H PRN RC FEVER / MILD PAIN 1-3 IF NPO 03/20/24 00:00 04/19/24 00:00 Amiodarone HCl (pacERONE 200MG) 200 mg BID PO 03/20/24 17:00 03/21/24 10:03 DC 03/21/24 08:08 200 MG Amiodarone HCl 150 mg/Dextrose 100 ml @ 0 mls/hr PROTOCOL IV 03/19/24 16:00 03/20/24 09:06 DC 03/19/24 16:35 600 MLS/HR Amiodarone HCl 360 mg/Dextrose 200 ml @ 0 mls/hr PROTOCOL IV 03/19/24 16:00 03/19/24 22:00 DC 03/19/24 17:13 0 MLS/HR Amiodarone HCl 540 mg/Dextrose 300 ml @ 0 mls/hr PROTOCOL IV 03/19/24 22:00 04/18/24 21:59 03/19/24 22:42 16.7 MLS/HR Apixaban (EliquIS) 5 mg BID PO 03/21/24 21:00 04/20/24 20:59 Atorvastatin Calcium (LIPItor 40MG) 40 mg HS PO 03/19/24 21:00 04/18/24 20:59 03/20/24 20:06 40 MG Clonidine HCl (CATApres 0.1 mg TAB) 0.1 mg DAILY PRN PO IF SBP GREATER THAN 160 03/20/24 00:30 03/20/24 07:30 DC Docusate Sodium (COLace 100MG CAP) 100 mg BID PRN PO CONSTIPATION 03/20/24 00:00 04/19/24 00:00 Famotidine (Pepcid 20mg Tab) 20 mg BID PO 03/19/24 21:00 04/18/24 20:59 03/21/24 08:08 20 MG Furosemide (LASix 20MG TAB) 20 mg DAILY PO 03/20/24 09:00 03/20/24 00:06 DC Furosemide (LASix 20MG VIAL) 20 mg Q8H IV 03/19/24 16:00 03/21/24 10:04 DC 03/21/24 08:17 20 MG Guaifenesin (RobiTUSSin SUGAR-FREE 100 MG/ 5 ML UDCUP) 400 mg Q6H6 PRN PO COUGH 03/20/24 00:00 04/19/24 00:00 03/21/24 08:08 400 MG Home Med (Home Medication) BID PO 03/20/24 09:00 04/19/24 08:59 03/20/24 09:59 1 EACH Hydralazine HCl (APRESOLine 20MG INJ) 10 mg Q2H PRN IV SBP GREATER THAN 160 03/20/24 00:00 04/19/24 00:00 Ipratropium [place] (AtrovENT UD) 0.5 mg Q6H PRN IH SHORTNESS OF BREATH 03/20/24 00:00 04/19/24 00:00 03/20/24 18:55 0.5 MG Lactulose (Constulose 20gm/ 30ml Udcup) 20 gm Q6H PRN PO CONSTIPATION 03/20/24 00:00 04/19/24 00:00 Levothyroxine Sodium (SYNTHroid 150MCG TAB) 150 mcg SYN PO 03/20/24 06:30 03/21/24 10:04 DC 03/21/24 05:29 150 MCG Levothyroxine Sodium (SYNTHroid 150MCG TAB) 150 mcg SYN PO 03/22/24 06:30 04/21/24 06:29 Levothyroxine Sodium (SYNTHroid 25MCG TAB) 25 mcg SYN PO 03/22/24 06:30 04/21/24 06:29 Losartan Potassium (CozAAR 100MG TAB) 100 mg DAILY PO 03/20/24 09:00 03/20/24 00:07 DC Losartan Potassium (CozAAR 100MG TAB) 100 mg DAILY PO 03/20/24 09:00 04/19/24 08:59 03/21/24 08:08 100 MG Magnesium Sulfate 50 ml @ 0 mls/hr PROTOCOL PRN IV low mag level 03/19/24 16:30 04/18/24 16:29 03/19/24 22:16 25 MLS/HR Metoprolol Tartrate (loprESSOR) 25 mg BID PO 03/21/24 21:00 04/20/24 20:59 Miscellaneous Medication (Rosuvastatin Calcium ) 40 mg HS PO 03/20/24 21:00 03/20/24 00:11 DC Ondansetron HCl (zoFRAN 4MG INJ) 4 mg Q6H PRN IVP NAUSEA/VOMITING 03/19/24 16:30 04/18/24 16:29 Potassium Chloride 100 ml @ 50 mls/hr PROTOCOL IV 03/19/24 16:00 03/21/24 13:31 DC Potassium Chloride 100 ml @ 100 mls/hr AD PRN IV POTASSIUM PROTOCOL 03/19/24 16:30 04/18/24 16:29 Potassium Chloride (K-Dur/Klor-Con 20meq) 20 meq AD PRN PO POTASSIUM PROTOCOL 03/19/24 16:30 04/18/24 16:29 03/21/24 12:25 20 MEQ Potassium Chloride (KCl 10% Elixir 20meq/15ml) 20 meq AD PRN PO POTASSIUM PROTOCOL 03/19/24 16:30 04/18/24 16:29 03/20/24 22:02 20 MEQ Temazepam (restORIL 15 MG CAP) 15 mg HS PRN PO INSOMNIA/SLEEP 03/20/24 00:00 04/19/24 00:00 DIAGNOSTICS / RADIOLOGY: [ ] ASSESSMENT: A flutter with RVR requiring amiodarone drip POA Acute CHF with exacerbation POA electrolytes derangement: hypokalemia hypernatremia POA Morbid obesity BMI 50.8 Dyspnea on exertion POA nonadherence to medication POA chronic problems: Hypertension, hyperlipidemia, hypothyroidism PLAN: Discontinue p.o. amiodarone Continue potassium protocol Continue losartan 100 mg Q 24 hours Continue levothyroxine 150 mcg Q 24 hours Start Eliquis 5 mg twice daily Start metoprolol 25 mg twice daily Continue telemetry Continue furosemide 20 mg Q 8 hours Cardiology consulted, appreciate recommendations, Disposition: Pending continue observation, Cardiology recommendations BENTON TORREZ MD Mar 21, 2024 14:50
--- NOTE | 2024-03-21 16:39 | NUR ---
CONVERTED BACK TO NST ABOUT 1358. PT WAS OFF TELELEMTRY IN RESTROOM, WHEN SHE CAME BACK ON BEDSIDE TELEMONITORING, SHE WAS NSR
--- NOTE | 2024-03-21 17:03 | NUR ---
CM NOTE/ELIQUIS CM spoke to patient regarding Eliquis coupon. Explained to patient to take coupon with prescription to pharmacy. Instructed patient to call film printer office if unable to obtain Eliquis prescription so that office can possibly change to another medication. Patient verbalized understanding. CM also provided goodrx card for any other new prescription. Patient asked CM about disability benefits. CM deferred patient to [facility]. States she has contact information for rep and will follow up. No other needs verbalized.
[2024-03-21] MEDS: metoPROLOL tartRATE 25 MG TAB PO SCH (21:25)
[2024-03-21] MEDS: APIXaban 5 MG TABLET PO SCH (21:26)
[2024-03-22] VITALS (7 sets, daily range): BP systolic 128–144; BP diastolic 70–77; PULSE 54–61; RESP 18–20; TEMP 97.6–97.9; O2SAT 98–99
[2024-03-22] MEDS: acetaMINOPHEN 325 MG TAB PO PRN (02:21)
[2024-03-22 04:21] LABS: BASOPHILS # (AUTO) 0.08 K/uL (0.00-0.20); EOSINOPHILS # (AUTO) 0.36 K/uL (0.00-0.70); EOSINOPHILS % (AUTO) 4.6 % (0.0-8.0); HEMATOCRIT 41.9 % (36-48); IMMATURE GRANULOCYTE ABSOLUTE 0.09 K/uL (0-1); LYMPHOCYTES # (AUTO) 1.9 K/uL (1.0-4.8); LYMPHOCYTES % (AUTO) 24.5 % (21.0-51.0); MEAN CORPUSCULAR HEMOGLOBIN 33.3 pg (27.0-33.0); MEAN CORPUSCULAR HGB CONC 34.1 g/dL (32.0-36.0); MEAN CORPUSCULAR VOLUME 97.4 fL (79-99); MONOCYTES # (AUTO) 0.6 K/uL (0.1-1.0); MONOCYTES % (AUTO) 7.3 % (3.0-13.0); NEUTROPHILS # (AUTO) 4.8 K/uL (1.8-7.7); NEUTROPHILS % (AUTO) 61.4 % (40.0-77.0); PLATELET COUNT (AUTO) 191 K/uL (130-400); RED CELL DISTRIBUTION WIDTH 12.2 % (11.0-15.5); WHITE BLOOD COUNT (AUTO) 7.8 K/uL (4.8-10.8)
[2024-03-22 04:31] LABS: CREATININE 1.1 mg/dL (0.5-1.0); POTASSIUM 3.5 mmol/L (3.5-5.1)
[2024-03-22] MEDS: levoTHYROxine 150 MCG TABLET PO SCH (06:52)
[2024-03-22] MEDS: levoTHYROxine 25 MCG TABLET PO SCH (06:52)
[2024-03-22] MEDS: IpraTROPium 0.5 MG/2.5 ML INH IH ONE (07:07)
--- NOTE | 2024-03-22 08:50 | PN ---
[facility] CARDIOLOGY PROGRESS NOTE Date Patient Seen: Mar 22, 2024 Time of Visit: 08:46 Interval History: [Now sinus bradycardia. ] Physical Examination: GENERAL: [No acute distress.] HEAD: [Normal with no signs of head trauma.] EYES: [PERRLA, EOMI, conjunctiva and sclera normal.] ENT: [Hearing grossly intact, normal oropharynx.] NECK: [Supple without JVD. There is no tenderness, lymphadenopathy, or masses. No thyromegaly. Normal carotid upstrokes without bruits.] LUNGS: [Clear breath sounds bilaterally. There are right basilar rales one third of the way up the chest. No wheezes, or rhonchi.] HEART: [Normal rate and rhythm. Normal S1 and S2 without mumurs, gallop or rub.] VASC: [Peripheral pulses +2 bilaterally.] ABD: [Bowel sounds normal, soft, nontender, no masses, no organomegaly. No audible bruits.] : [Not examined] LYMPH: [No lymphadenopathy noted.] EXT: [2+ b/l edema.] SKIN: [No rashes or lesions noted.] NEURO: [Awake, alert, and oriented x3. No focal sensory or strength deficits noted.] Laboratory: [ ] Hematology Labs: Test 03/22/24 03:50 Range/Units White Blood Count 7.8 4.8-10.8 K/uL Red Blood Count 4.30 4.00-5.50 MIL/uL Hemoglobin 14.3 12.0-16.0 g/dL Hematocrit 41.9 36-48 % Mean Corpuscular Volume 97.4 79-99 fL Mean Corpuscular Hemoglobin 33.3 H 27.0-33.0 pg Mean Corpuscular Hemoglobin Concent 34.1 32.0-36.0 g/dL Red Cell Distribution Width 12.2 11.0-15.5 % Platelet Count 191 130-400 K/uL Mean Platelet Volume 10.2 7.5-10.5 fL Immature Granulocyte % (Auto) 1.2 H 0-1 % Neutrophils (%) (Auto) 61.4 40.0-77.0 % Lymphocytes (%) (Auto) 24.5 21.0-51.0 % Monocytes (%) (Auto) 7.3 3.0-13.0 % Eosinophils (%) (Auto) 4.6 0.0-8.0 % Basophils (%) (Auto) 1.0 0.0-5.0 % Neutrophils # (Auto) 4.8 1.8-7.7 K/uL Lymphocytes # (Auto) 1.9 1.0-4.8 K/uL Monocytes # (Auto) 0.6 0.1-1.0 K/uL Eosinophils # (Auto) 0.36 0.00-0.70 K/uL Basophils # (Auto) 0.08 0.00-0.20 K/uL Absolute Immature Granulocyte (auto 0.09 0-1 K/uL Nucleated Red Blood Cells 0.0 0.0-0.19 % Chemistry Labs: Test 03/22/24 03:50 03/21/24 03:43 Range/Units Sodium Level 144 136-145 mmol/L Potassium Level 3.5 3.5-5.1 mmol/L Chloride Level 109 101-111 mmol/L Carbon Dioxide Level 28 21-32 mmol/L Blood Urea Nitrogen 19 H 7-18 mg/dL Creatinine 1.1 H 0.5-1.0 mg/dL Glomerular Filtration Rate Calc 56 >90 mL/min Random Glucose 108 H 70-105 mg/dL Total Calcium 8.6 8.5-10.1 mg/dL Phosphorus Level 4.4 2.5-4.9 mg/dL Magnesium Level 2.30 1.80-2.40 mg/dL Free Thyroxine (T4) Direct 1.24 0.76-1.46 ng/dL Free Triiodothyronine (T3) pg/mL 1.78 L 2.18-3.98 pg/mL Diagnostics / Radiology: [Copy/Paste Echos/Imaging Report here] Impression and Plan: [Obesity Hypothyroidism Persistent a-fib ROSSY Type II DM, uncontrolled HTN H/o tachycardia induced CM Plan: [#Persistent a-fib -s/p amiodarone gtt protocol and ordered po amiodarone, however, due to thyroid function testing abnormal, consulted EP for alternative medication recs. Dofetilide will be initiated after 2-4 week amiodarone wash out period. We will opt for rate control strategy metoprolol tartrate 25 mg bid. She will need an admission in the future to initiate dofetilide. -eliquis 5 mg bid -diuresed well, will stop lasix -repeat 2d echo shows LVEF recovery of 60% #Hypothyroidism -home dose is levothyroxine 150 mcg qd-->increased to 175 mcg (will need synthroid on discharge). -TSH high at 13, low Free T3 1.78 and Normal free T4. I will sign off. She may follow up in clinic three weeks after discharge. Nora Angeles MD ] NORA ANGELES MD Mar 22, 2024 08:50
[2024-03-22] MEDS ORDERED: LEVO150T6 PO (12:59)
[2024-03-22] MEDS ORDERED: METO25 PO (12:59)
[2024-03-22] MEDS ORDERED: ATOR40TA69 PO (12:59)
[2024-03-22] MEDS ORDERED: APIX5TAB PO (12:59)
[2024-03-22] MEDS ORDERED: LOSA-420 PO (12:59)
--- NOTE | 2024-03-22 13:39 | NUR ---
DISCHARGE D\C INSTRUCTIONS GIVEN TO PT AND VERBALIZED UNDERSTANDING. IV AND TELE PACK REMOVED. PT WILL CALL ONCE RIDE IS HERE. BELONGINGS AND CALL LIGHT WITHIN REACH.
== END 2024-03-22 15:15 | disposition home or self-care (01) | DRG 291 ==
LOC: EDH 15:19 → EDHIP 15:20 → 2BH 19:33 → 2AH 03-21 18:34
PROVIDERS: ADMIT Internal Medicine; ATTEND Internal Medicine
DX: I11.0 Hypertensive heart disease with heart failure (principal); I50.23 Acute on chronic systolic (congestive) heart failure; I48.92 Unspecified atrial flutter; E87.0 Hyperosmolality and hypernatremia; Z68.43 Body mass index [BMI] 50.0-59.9, adult; I48.19 Other persistent atrial fibrillation; M79.89 Other specified soft tissue disorders; E66.01 Morbid (severe) obesity due to excess calories; E87.6 Hypokalemia; E03.9 Hypothyroidism, unspecified; E78.5 Hyperlipidemia, unspecified; I48.0 Paroxysmal atrial fibrillation; E11.9 Type 2 diabetes mellitus without complications; G47.33 Obstructive sleep apnea (adult) (pediatric); Z91.148 Patient's other noncompliance with medication regimen for other reason; Z82.49 Family history of ischemic heart disease and other diseases of the circulatory system
CPT/HCPCS: 36415; 71045; 80048; 80053; 80061; 83735; 84100; 84439; 84443; 84481; 85025; 93306; 93356; 93925; 94640; 94664; G0378; J0282; J1940; J3475; J7060

== ENCOUNTER → 2024-05-02 | Outpatient (CLI) | payer SELFPAY ==
[~2024-05-02] MED LIST changes: +ALBU18HF7 IH; -AMIO200T68 PO; +ATOR40TA69 PO; -FLUT8AER3 IH; -LEVO150T11 PO; -LOSA100T59 PO; +LOSA50TA64 PO; +METO25 PO; -METO25TA6 PO; -ROSU40TA88 PO
[2024-05-02 16:41] LABS: THYROID STIMULATING HORMONE 18.91 uIU/mL (0.36-3.74)
== END | disposition home or self-care (01) ==
LOC: LAB 11:54
PROVIDERS: ATTEND Student in an Organized Health Care Education/Training Program
DX: E03.9 Hypothyroidism, unspecified (principal)
CPT/HCPCS: 36415; 84439; 84443; 84481

== ENCOUNTER 2024-06-29 17:12 | Inpatient (IN) | payer SELFPAY ==
[~2024-06-29] VITALS: Ht 162.6 cm; Wt 126.1 kg
--- NOTE | 2024-06-29 17:29 | EKG ---
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
[2024-06-29] MEDS: IpraTROPium/alBUTERol SULFATE 3 ML SOLUTION IH ONE (17:40)
[2024-06-29 17:44] VITALS: PULSE 105; RESP 18
[2024-06-29 17:47] LABS: BASOPHILS # (AUTO) 0.04 K/uL (0.00-0.20); BASOPHILS % (AUTO) 0.3 % (0.0-5.0); EOSINOPHILS # (AUTO) 0.18 K/uL (0.00-0.70); EOSINOPHILS % (AUTO) 1.5 % (0.0-8.0); HEMATOCRIT 46.4 % (36-48); IMMATURE GRANULOCYTE ABSOLUTE 0.06 K/uL (0-1); LYMPHOCYTES # (AUTO) 0.8 K/uL (1.0-4.8); LYMPHOCYTES % (AUTO) 6.6 % (21.0-51.0); MEAN CORPUSCULAR HEMOGLOBIN 31.7 pg (27.0-33.0); MEAN CORPUSCULAR HGB CONC 33.8 g/dL (32.0-36.0); MEAN CORPUSCULAR VOLUME 93.7 fL (79-99); MONOCYTES # (AUTO) 0.4 K/uL (0.1-1.0); MONOCYTES % (AUTO) 3.6 % (3.0-13.0); NEUTROPHILS # (AUTO) 10.6 K/uL (1.8-7.7); NEUTROPHILS % (AUTO) 87.5 % (40.0-77.0); PLATELET COUNT (AUTO) 199 K/uL (130-400); RED BLOOD CELL COUNT(AUTO) 4.95 MIL/uL (4.00-5.50); RED CELL DISTRIBUTION WIDTH 13.6 % (11.0-15.5); WHITE BLOOD COUNT (AUTO) 12.1 K/uL (4.8-10.8)
[2024-06-29 17:50] LABS: SARS-CoV-2, RNA, NAAT NEGATIVE SARS CoV-2 (NEGATIVE)
[2024-06-29 17:54] LABS: INFLUENZA TYPE A Negative For Type A (NEGATIVE); INFLUENZA TYPE B Negative For Type B (NEGATIVE)
[2024-06-29 18:03] LABS: CREATININE 1.1 mg/dL (0.5-1.0); POTASSIUM 3.3 mmol/L (3.5-5.1)
[2024-06-29 18:18] LABS: MAGNESIUM 1.8 mg/dL (1.80-2.40)
[2024-06-29 18:37] LABS: B-TYPE NATRIURETIC PEPTIDE 76 pg/mL (0-100)
--- NOTE | 2024-06-29 18:44 | HMCIMG ---
PORTABLE CHEST RADIOGRAPH INDICATION: sob COMPARISON: 04/12/2024 FINDINGS: Heart size is normal. The pulmonary vascularity and salbador appear normal. No abnormal pulmonary parenchymal opacity or consolidation identified. No significant pleural effusion noted. No pneumothorax detected. IMPRESSION: No radiographic evidence for any acute cardiopulmonary process.
[2024-06-29 18:57] LABS: APPEARANCE,URINE CLEAR (CLEAR); BILIRUBIN,URINE NEGATIVE (NEGATIVE); COLOR,URINE LIGHT-YELLOW (YELLOW); GLUCOSE, URINE (UA) NEGATIVE (NEGATIVE); KETONES,URINE NEGATIVE (NEGATIVE); LEUKOCYTE ESTERASE ,URINE NEGATIVE Leu/uL (NEGATIVE); NITRATE,URINE NEGATIVE (NEGATIVE); PROTEIN,URINE NEGATIVE (NEGATIVE); UROBILINOGEN,URINE 0.2 mg/dL (0.2-1.0)
[2024-06-29 18:58] LABS: ADD UA MICROSCOPIC YES
[2024-06-29 19:00] LABS: MUCUS,URINE RARE LPF (None Seen); RBC,URINE 0-1 /HPF (0-1); SQUAMOUS EPITHELIAL CELL,UR RARE /HPF (0-2); WBC,URINE 0-1 /HPF (0-1)
[2024-06-29] MEDS: Solu-medROL 125MG VIAL IVP ONE (19:17)
[2024-06-29] MEDS: MAGNESIUM 2GM PREMIX 50ML 50 ML IV SCH (19:17)
[2024-06-29] MEDS: CEFTRIAXONE 2GM VIAL IVPB ONE (19:17)
[2024-06-29] MEDS: 0.9%NACL 1000ML 1,641 ML IV ONE (19:17)
[2024-06-29] MEDS: acetaMINOPHEN 500 MG TABLET PO SCH (19:17)
--- NOTE | 2024-06-29 20:22 | HP ---
[facility] HISTORY [facility] PHYS[facility] Date of Service: Jun 29, 2024 Time of Service: 20:20 PCP: Vivienne Infante HISTORY OF PRESENT ILLNESS: This is a 64-year-old female with past medical history of atrial flutter/atrial fibrillation on Eliquis, hypothyroidism, morbid obesity, undiagnosed obstructive sleep apnea, hypertension, hyperlipidemia and chronic kidney disease who was sent by her PCP for multiple complaints such as headache started four days ago followed by a sore throat , body aches and shortness of breaths which started three days ago and have progressively got worse today ,then seek medical help. Upon arrival to ER patient's vital signs temperature of 102.6, heart rate 119, respiration 20, blood pressure 136/95 saturation 94% on room air. While in the ER patient was given fluid resuscitation of NS 30 mL/kilogram over 3 hours, Solu-Medrol 125 mg IV, magnesium sulfate IV, Rocephin 2 g IV and neb treatment. An EKG was done and result revealed atrial flutter with product predominant two-to-one AV block heart rate 113. Ventricular premature complexes, incomplete right bundle branch block. ST-elevation consider lateral injury. Labs: WBC 12 with negative left shift of neutrophils 87, hemoglobin 15, hematocrit 46, platelet count 199. Potassium 3.3, BUN 15, creatinine 1.1, GFR 56 glucose 123 lactic acid 1.5 troponin 39 BNP 76. Urinalysis significant with trace occult blood otherwise unremarkable. Influenza type a and B negative SARs COVID negative chest x-ray result revealed no radiographic evidence for any acute car diopulmonary process. Seen and examined patient in the ER, awake alert and coherent. Patient appears comfortable. Patient continued to complain of above symptoms states she feels much better. We will admit patient for further medical management. REVIEW OF SYSTEMS CONSTITUTIONAL: Positive fever and chills Denies night sweats. No unintentional weight loss reported. NEUROLOGICAL: Denies headache, amaurosis fugax, motor weakness, sensory de ficit, vertigo/spinning sensation, gait abnormalities, or tremors. ENT: Positive sore throat No hearing loss, otalgia, otorrhea, rhinitis, rhinorrhea, hoarseness, CARDIOVASCULAR: Denies any exertional angina, dyspnea on exertion, orthopnea, paroxysmal nocturnal dyspnea, palpitations, life-threatening arrhythmias, claudication. PULMONARY: Positive cough with phlegm and shortness of breaths Denies anyhemoptysis, pleuritic chest pain. SLEEP: Denies morning headaches, daytime somnolence or napping. Denies difficulty falling asleep, staying asleep, waking from sleep. Denies knowledge of snoring. GASTROINTESTINAL: Denies any type of dysphagia to either liquids or solids. Denies nausea, vomiting, pyrosis, early satiety, abdominal pain, diarrhea, constipation, or changes in stool consistency or caliber. Denies coffee-ground emesis, hematemesis, hematochezia, or melanotic stools. GENITOURINARY: Denies frequency, urgency, nocturia, hematuria or incontinence (Storage/Irritative symptoms.) Low urinary stream, straining to void, urinary intermittency or hesitancy, splitting of the voiding stream, terminal dribbling. ENDOCRINOLOGIC: Denies polyuria, polydipsia, polyphagia or heat/cold intolerances. HEMATOLOGIC: Denies thrombophilia/previous clots, or coagulopathy/bleeding disorders. ONCOLOGIC: Denies personal history of malignancy. DERMATOLOGIC: Denies rashes or pruritus. PSYCHIATRIC: Denies any suicidal or homicidal ideation. Denies hallucinations. PAST MEDICAL HISTORY: [ Asthma A flutter/Atrial fibrillation on qu, hypothyroidism,, morbid obesity, hypertension, hyperlipidemia, CKD, obstructive sleep apnea undiagnosed] PAST SURGICAL HISTORY: [Cardiac ablation for a flutter on August 2022 ] PAST SOCIAL HISTORY: [Patient lives with . Patient denies alcohol tobacco and recreational drug use] FAMILY HISTORY: [Hypertension , cardiovascular disease and asthma ] Coded Allergies: No Known Allergies (Verified Allergy, Unknown, 08/14/21) PHYSICAL EXAM GENERAL APPEARANCE: The patient is awake, alert, and oriented, in no acute cardiopulmonary distress. NEUROLOGICAL: Cranial nerves II-XII grossly intact. Motor is 5/5 in bilateral upper and lower extremities proximal to distal. No sensory deficits. HEENT: Face is symmetric. Pupils are equal and reactive. Extraocular movements are intact. NECK: Supple. No JVD. No thyromegaly. No submental, submandibular, pre- /postauricular, occipital or supraclavicular lymphadenopathy. CHEST: Normal chest expansion. No Telemetry. LUNGS: expiratory wheezing to bilateral lung sharif per auscultation CARDIOVASCULAR: Tachycardic . S1 and S2 normal. No appreciable rubs, murmurs or gallops. ABDOMEN: Soft, nontender, and nondistended. There is no rebound, voluntary guarding, or rigidity. : Deferred. No Blue. EXTREMITIES: Non-edematous and not cyanotic. No clubbing. Good capillary refill. SKIN: No skin breakdown. Vital Sign (Last 24 Hours) 06/29/24 19:29 Temp 99.3 Pulse 123 Resp 22 B/P (MAP) 135/85 Pulse Ox 94 O2 Delivery Nasal Cannula* O2 Flow Rate 2 FiO2 28 LABS: Laboratory: Test 06/29/24 18:49 06/29/24 17:37 06/29/24 17:22 Range/Units Urine Color LIGHT-YELLOW YELLOW Urine Appearance CLEAR CLEAR Urine pH 6.0 5.0-8.0 Urine Specific [place] 1.014 1.001-1.031 Urine Protein NEGATIVE NEGATIVE mg/dL Urine Glucose (UA) NEGATIVE NEGATIVE mg/dL Urine Ketones NEGATIVE NEGATIVE mg/dL Urine Occult Blood +- (TRACE) H NEGATIVE Urine Nitrate NEGATIVE NEGATIVE Urine Bilirubin NEGATIVE NEGATIVE mg/dL Urine Urobilinogen 0.2 0.2-1.0 mg/dL Urine Leukocyte Esterase NEGATIVE NEGATIVE Tabitha/uL Urine RBC 0-1 0-1 /HPF Urine WBC 0-1 0-1 /HPF Urine Squamous Epithelial Cells RARE 0-2 /HPF Urine Bacteria None None Seen /HPF White Blood Count 12.1 H 4.8-10.8 K/uL Red Blood Count 4.95 4.00-5.50 MIL/uL Hemoglobin 15.7 12.0-16.0 g/dL Hematocrit 46.4 36-48 % Mean Corpuscular Volume 93.7 79-99 fL Mean Corpuscular Hemoglobin 31.7 27.0-33.0 pg Mean Corpuscular Hemoglobin Concent 33.8 32.0-36.0 g/dL Red Cell Distribution Width 13.6 11.0-15.5 % Platelet Count 199 130-400 K/uL Mean Platelet Volume 10.4 7.5-10.5 fL Immature Granulocyte % (Auto) 0.5 0-1 % Neutrophils (%) (Auto) 87.5 H 40.0-77.0 % Lymphocytes (%) (Auto) 6.6 L 21.0-51.0 % Monocytes (%) (Auto) 3.6 3.0-13.0 % Eosinophils (%) (Auto) 1.5 0.0-8.0 % Basophils (%) (Auto) 0.3 0.0-5.0 % Neutrophils # (Auto) 10.6 H 1.8-7.7 K/uL Lymphocytes # (Auto) 0.8 L 1.0-4.8 K/uL Monocytes # (Auto) 0.4 0.1-1.0 K/uL Eosinophils # (Auto) 0.18 0.00-0.70 K/uL Basophils # (Auto) 0.04 0.00-0.20 K/uL Absolute Immature Granulocyte (auto 0.06 0-1 K/uL Nucleated Red Blood Cells 0.0 0.0-0.19 % White Cell Morphology Comment See comments Sodium Level 141 136-145 mmol/L Potassium Level 3.3 L 3.5-5.1 mmol/L Chloride Level 104 101-111 mmol/L Carbon Dioxide Level 29 21-32 mmol/L Blood Urea Nitrogen 15 7-18 mg/dL Creatinine 1.1 H 0.5-1.0 mg/dL Glomerular Filtration Rate Calc 56 >90 mL/min Random Glucose 123 H 70-105 mg/dL Lactic Acid Level 1.5 0.8-2.5 mmol/L Total Calcium 8.7 8.5-10.1 mg/dL Magnesium Level 1.80 1.80-2.40 mg/dL Total Creatine Kinase 172 # 21-232 U/L Troponin I High Sensitivity 39 4-50 ng/L B-Type Natriuretic Peptide 76 0-100 pg/mL Influenza Type A Antigen Negative For Type A NEGATIVE Influenza Type B Antigen Negative For Type B NEGATIVE SARS-CoV-2, RNA, NAAT NEGATIVE SARS CoV-2 NEGATIVE Current Medications Medications (Trade) Dose Ordered Sig/Hunter Route PRN Reason Start Time Stop Time Status Last Admin Dose Admin Acetaminophen (TYLenol 500MG TAB) 1,000 mg ONCE PO 06/29/24 18:00 06/29/24 22:00 06/29/24 19:17 1,000 MG Magnesium Sulfate 50 ml @ 0 mls/hr PROTOCOL IV 06/29/24 17:30 07/29/24 17:29 06/29/24 19:17 50 MLS/HR DIAGNOSTICS / RADIOLOGY: [ ] ASSESSMENT: Acute respiratory failure without mechanical ventilation POA Acute asthma exacerbation POA Sepsis with unknown source POA Acute kidney injury on CKD POA Hypokalemia POA Undiagnosed obstructive sleep apnea POA Morbid obesity POA Atrial fibrillation on Eliquis POA Hyperlipidemia POA Hypertension POA Hypothyroidism POA History of cardioversion and cardiac ablation POA PLAN: We will admit patient in medical telemetry We will start on heart healthy diet We will start NS @ 75 ml / hr x 1 bag and re evaluate We will start patient on Rocephin 1 g IV b.i.d. for empiric coverage We will start patient on methylprednisolone 40 mg IV b.i.d. We will start on Famotidine 20 mg p.o. daily for GI prophylaxis We will replace electrolytes as needed per protocol We will add prn medication for fever,pain,cough , nausea and vomiting We will reconcile home meds once medlist available May continue oxygen supplementation to keep saturation above 92% We will start on DuoNeb treatment q.4 hours for shortness of breaths or wheezing We will obtain respiratory culture blood culture and urinalysis follow-up results We will request V/Q scan We will request echocardiogram We will seek pulmonology consultation We will request labs in am Further orders to follow depending on above results Case discussed with attending physician and came up with above treatment and plan of care. ADVANCED CARE PLANNING 1. Which of the following were discussed? Hospice Care - No Therapeutic options - Yes Advance Directives - No Other discussions - 2. Discussed with who? Patient 3. Voluntary nature of this service was explained to the patient? Yes 4. Amount of time spent - _25 5. Reviewed by Physician? (if this service was performed by NPP) Yes ADDENDUM: - mid-level reconciled old medications, nursing has updated home medications and patient will be resumed on amiodarone due to her RVR - hold albuterol, continue ipratropium and budesonide - cancel V/Q scan, wells score with low probability of PE ATTENDING PHYSICIAN ATTESTATION: I have reviewed the midlevel's plan. I have independently seen, reviewed the chart and made my own assessment of the patient. See my addendum for updates to the midlevel's medical plan MD DENNY Fernandez ROSEMARIE P WELLFIELD TECHNICIAN Jun 29, 2024 20:22 BENTON TORREZ MD Jun 30, 2024 16:39
[2024-06-29] MEDS ORDERED: ondanSETRON 4MG INJ IV PRN (20:30)
[2024-06-29] MEDS ORDERED: cefTRIAXone 1G VIAL IV SCH (21:00)
[2024-06-29] MEDS: Solu-medROL 40MG VIAL IVP SCH (21:00)
[2024-06-29] MEDS: 0.9%NACL 1000ML 1,000 ML IV SCH (21:35)
--- NOTE | 2024-06-29 22:08 | ERN ---
General Chief Complaint: Shortness of Breath Stated Complaint: SENT BY Time Seen by MD: 17:12 Time Seen by Midlevel: 17:12 Source: patient History of Present Illness Initial Comments Patient is a 64-year-old female with a past medical history of type 2 diabetes, hypertension, hypothyroidism, coronary artery disease, and atrial fibrillation presenting to the emergency department for evaluation of increased shortness of breath. The patient was sent by her primary care doctor's office after she was found to be febrile and tachycardic. She was sent to rule out sepsis. Patient reports flu-like symptoms that include a headache, congestion, shortness of breath, and chest pain Allergies: Coded Allergies: No Known Allergies (Verified Allergy, Unknown, 08/14/21) Home Meds Active Scripts Losartan Potassium (Losartan Potassium) 50 Mg Tablet, 1 TAB PO BID for 30 Days, #30 TAB 0 Refills Prov:RANI ESQUEDA MD 04/12/24 Metoprolol Tartrate (Lopressor) 25 Mg Tab, 25 MG PO BID, #60 TAB 0 Refills Prov:BENTON TORREZ MD 03/22/24 Atorvastatin Calcium (LIPITOR) 40 Mg Tablet, 40 MG PO HS, #30 TAB 0 Refills Prov:BENTON TORREZ MD 03/22/24 Apixaban (Eliquis) 5 Mg Tablet, 5 MG PO BID, #60 TAB 0 Refills Prov:BENTON TORREZ MD 03/22/24 Levothyroxine Sodium (Synthroid) 150 Mcg Tablet, 150 MCG PO DAILY, #30 TAB 0 Refills Prov:BENTON TORREZ MD 03/22/24 Reported Medications Albuterol Sulfate (Ventolin Hfa) 90 Mcg Hfa.aer.ad, 2 PUFF IH Q4HPRN PRN for wheezing for 30 Days, #18 GM 0 Refills 03/19/24 Furosemide (Furosemide) 20 Mg Tablet, 1 TAB PO DAILY 08/20/22 Topiramate (Topiramate ER) 50 Mg Cap.spr.24, 50 MG PO BID, CAP 08/14/21 Past Medical History Past Medical History: A-Fib, Diabetes-Type II, Heart Disease, Hypertension, Hypothyroid Medical History Other: CARDIOVERSION Past Surgical History: None Surgical History Other: CARDIAC ABLATION Social History Social History: Negative Female( History) History: Not Applicable ROS Dictation CONSTITUTIONAL: Negative except for HPI HEAD/FACE: Negative except for HPI EENT: Negative except for HPI RESPIRATORY: Negative except for HPI GASTROINTESTINAL/ABDOMINAL: Negative except for HPI GENITOURINARY: Negative except for HPI MUSCULOSKELETAL: Negative except for HPI INTEGUMENTARY: Negative except for HPI NEUROLOGICAL/PSYCH: Negative except for HPI HEMATOLOGIC/LYMPHATIC: Negative except for HPI All Systems Negative, Except as noted above. 13 point review of systems assessed and all negative except for above. Physical Exam Physical Exam Dictation Vital Signs reviewed General Appearance: Alert, oriented x 3, no acute distress, morbidly obese, ill- appearing, febrile Head and Face: non-traumatic. Eyes: PERRL, pink conjunctivas, eyelid no trauma, anterior chamber with arcus senilis. Ears: Pinnas intact and no signs of trauma or erythema ear canals clear and no discharge TM no erythema Nose: No discharge, no bleeding. Oropharynx: Mouth normal, tongue pink, pharynx clear,no erythema, tonsils no exudates, no abscesses noted, mucous membrane moist Neck: Supple, non-tender, no thyromegaly, no masses, no JVD, no bruits Breast:Deferred Chest:No tenderness, no crepitus, no paradoxical movement, no retractions Lungs: Diffuse expiratory wheezing to bilateral lung sharif Heart: Tachycardic, regular rhythm, no murmur, no gallops Vascular: no peripheral edema, Abdomen: Soft, positive bowel sounds, nondistended, no guarding, nontender, no rebound, no masses no hepatomegaly, no splenomegaly, no Yancey's sign, no hernias. Rectal: Deferred Genital: Deferred Neurological: Normal speech, motor function intact, sensory function intact Musculoskeletal: Neck nontender, full range of motion, back nontender, full range of motion, Extremities: nontender, full range of motion Skin: Color pink, dry, no turgor, no rash, no lacerations, no abrasions, no contusions. Lymphatic: Deferred Results Laboratory and Microbiology Lab and Micro Result Laboratory Tests Test 06/29/24 17:22 06/29/24 17:37 06/29/24 18:49 Influenza Type A Antigen Negative For Type A Influenza Type B Antigen Negative For Type B SARS-CoV-2, RNA, NAAT NEGATIVE SARS CoV-2 White Blood Count 12.1 K/uL (4.8-10.8) H Red Blood Count 4.95 MIL/uL (4.00-5.50) Hemoglobin 15.7 g/dL (12.0-16.0) Hematocrit 46.4 % (36-48) Mean Corpuscular Volume 93.7 fL (79-99) Mean Corpuscular Hemoglobin 31.7 pg (27.0-33.0) Mean Corpuscular Hemoglobin Concent 33.8 g/dL (32.0-36.0) Red Cell Distribution Width 13.6 % (11.0-15.5) Platelet Count 199 K/uL (130-400) Mean Platelet Volume 10.4 fL (7.5-10.5) Immature Granulocyte % (Auto) 0.5 % (0-1) Neutrophils (%) (Auto) 87.5 % (40.0-77.0) H Lymphocytes (%) (Auto) 6.6 % (21.0-51.0) L Monocytes (%) (Auto) 3.6 % (3.0-13.0) Eosinophils (%) (Auto) 1.5 % (0.0-8.0) Basophils (%) (Auto) 0.3 % (0.0-5.0) Neutrophils # (Auto) 10.6 K/uL (1.8-7.7) H Lymphocytes # (Auto) 0.8 K/uL (1.0-4.8) L Monocytes # (Auto) 0.4 K/uL (0.1-1.0) Eosinophils # (Auto) 0.18 K/uL (0.00-0.70) Basophils # (Auto) 0.04 K/uL (0.00-0.20) Absolute Immature Granulocyte (auto 0.06 K/uL (0-1) Nucleated Red Blood Cells 0.0 % (0.0-0.19) White Cell Morphology Comment See comments Sodium Level 141 mmol/L (136-145) Potassium Level 3.3 mmol/L (3.5-5.1) L Chloride Level 104 mmol/L (101-111) Carbon Dioxide Level 29 mmol/L (21-32) Blood Urea Nitrogen 15 mg/dL (7-18) Creatinine 1.1 mg/dL (0.5-1.0) H Glomerular Filtration Rate Calc 56 mL/min (>90) Random Glucose 123 mg/dL (70-105) H Lactic Acid Level 1.5 mmol/L (0.8-2.5) Total Calcium 8.7 mg/dL (8.5-10.1) Magnesium Level 1.80 mg/dL (1.80-2.40) Total Creatine Kinase 172 U/L (21-232) # Troponin I High Sensitivity 39 ng/L (4-50) B-Type Natriuretic Peptide 76 pg/mL (0-100) Urine Color LIGHT-YELLOW (YELLOW) Urine Appearance CLEAR (CLEAR) Urine pH 6.0 (5.0-8.0) Urine Specific [place] 1.014 (1.001-1.031) Urine Protein NEGATIVE mg/dL (NEGATIVE) Urine Glucose (UA) NEGATIVE mg/dL (NEGATIVE) Urine Ketones NEGATIVE mg/dL (NEGATIVE) Urine Occult Blood +- (TRACE) (NEGATIVE) H Urine Nitrate NEGATIVE (NEGATIVE) Urine Bilirubin NEGATIVE mg/dL (NEGATIVE) Urine Urobilinogen 0.2 mg/dL (0.2-1.0) Urine Leukocyte Esterase NEGATIVE Tabitha/uL Urine RBC 0-1 /HPF (0-1) Urine WBC 0-1 /HPF (0-1) Urine Squamous Epithelial Cells RARE /HPF (0-2) Urine Bacteria None /HPF (None Seen) Labs Reviewed?: Yes MDM MDM Differential diagnosis: Acute asthma exacerbation, pneumonia, sepsis, dehydration, electrolyte abnormality Rationale: Tests considered and ordered secondary to shared decision making include: Previous outside records reviewed: Old ER visits. Risk of complication and/or morbidity or mortality of patient management: None Medications-Per medication reconciliation Need for hospitalization: Patient does meet criteria for hospitalization. Need for emergency major/minor surgery: No There are no social concerns with this patient. Prescription drug management Prescriptions will include symptomatic care Patient's prior external medical records from other ER visits were reviewed by me as indicated. Prior testing and results from previous visits were reviewed. Prior tests were taken into account with medical decision making and resource utilization, independent historian/historians were used to obtain complete medical history. I independently interpreted the test that were performed, results were reviewed by me and considered findings on radiology if ordered. Medical management and examination interpretation discussions were had by me with other qualified healthcare professionals as indicated for the patient's care. ED Course Orders Procedure Category Date Status Time 12 Lead Ekg Tracing- EKG 06/29/24 Complete Technical 17:21 Cbc With Differential LAB 06/29/24 Complete 17:21 Basic Metabolic Panel LAB 06/29/24 Complete 17:21 B-Type Natriuretic LAB 06/29/24 Complete Peptide 17:21 Blood Cult NADER 06/29/24 In Process 17:21 Creatine Kinase, Total LAB 06/29/24 Complete 17:21 Magnesium LAB 06/29/24 Complete 17:21 Lactic Acid LAB 06/29/24 Complete 17:21 Urinalysis Profile LAB 06/29/24 Complete 17:21 Troponin I High LAB 06/29/24 Complete Sensitivity 17:21 Covid Rna Naat LAB 06/29/24 Complete 17:21 Influenza Type A & B, LAB 06/29/24 Complete Rapid 17:21 Chest 1vw RAD 06/29/24 Resulted 17:21 Ipratropium/Albuterol PHA 06/29/24 Complete Neb (Duoneb) 17:30 Ceftriaxone 2gm Vial PHA 06/29/24 Complete (Rocephin 2gm Inj) 17:30 Methylprednisolone PHA 06/29/24 Complete Succ 125mg (Solu-Medr 17:30 Magnesium 2gm Premix PHA 06/29/24 In Process 50ml (Magnesium 2gm 17:30 0.9%Nacl 1000ml (Ns PHA 06/29/24 In Process 1000ml) 17:30 Acetaminophen 500mg PHA 06/29/24 In Process Tab (Tylenol 500mg T 18:00 Current Medications Medications (Trade) Dose Ordered Sig/Hunter Route PRN Reason Start Time Stop Time Status Last Admin Dose Admin Acetaminophen (TYLenol 500MG TAB) 1,000 mg ONCE PO 06/29/24 18:00 06/29/24 22:00 06/29/24 19:17 Albuterol (DUOneb) 1 UDVIAL ONCE ONCE IH 06/29/24 17:30 06/29/24 17:31 DC 06/29/24 17:40 Ceftriaxone Sodium (Rocephin 2gm Inj) 2 gm ONCE ONCE IVPB 06/29/24 17:30 06/29/24 17:31 DC 06/29/24 19:17 Magnesium Sulfate 50 ml @ 0 mls/hr PROTOCOL IV 06/29/24 17:30 07/29/24 17:29 06/29/24 19:17 Methylprednisolone Sodium Succinate (Solu-medROL 125MG) 125 mg ONCE ONCE IVP 06/29/24 17:30 06/29/24 17:31 DC 06/29/24 19:17 Sodium Chloride 1,641 ml @ 547 mls/hr ONCE ONCE IV 06/29/24 17:30 06/29/24 20:29 06/29/24 19:17 Vital Signs Date Time Temp Pulse Resp B/P (MAP) Pulse Ox O2 Delivery O2 Flow Rate FiO2 06/29/24 19:29 99.3 123 22 135/85 94 Nasal Cannula* 2 28 06/29/24 17:44 105 18 06/29/24 17:18 102.6 119 20 136/95 94 Room Air DX & DISP Disposition: Inpatient Decision to Admit Date: Jun 29, 2024 Departure Impression: Primary Impression: Acute asthma exacerbation Condition: Stable Referrals: SELF,REFERRAL (PCP) I have reviewed the case, and I agree with, Diagnosis and Plan I performed the substantive portion of the visit. I have reviewed and personally made and approve the management plan that is documented in the note by myself or the ERENDIRA. I acknowledge for responsibility for the patient's management plan. BELINDA FREEDMAN Jun 29, 2024 22:08
[2024-06-29] MEDS: SODIUM CHLORIDE 3% FOR INHALATION 4 ML/AMP VIAL.NEB IH ONE (22:43)
[2024-06-29] MEDS: IpraTROPium/alBUTERol SULFATE 3 ML SOLUTION IH SCH (22:43)
[2024-06-29 22:46] VITALS: PULSE 104; RESP 22; O2SAT 96
[2024-06-29 22:47] VITALS: PULSE 109; RESP 22
[2024-06-30] VITALS (10 sets, daily range): BP systolic 153–156; BP diastolic 86–87; PULSE 104–113; RESP 18–22; TEMP 98.4–98.8; O2SAT 94–97
--- NOTE | 2024-06-30 00:26 | NUR ---
HOSPITAL BED ORDERED FOR PATIENT FROM HOUSE KEEPING.
[2024-06-30] MEDS: SODIUM CHLORIDE 3% FOR INHALATION 4 ML/AMP VIAL.NEB IH ONE ×2 (01:59→07:28)
--- NOTE | 2024-06-30 02:16 | NUR ---
PATIENT SLEEPING WELL, NO DISTRESS NOTED.
[2024-06-30] MEDS: levoTHYROxine 150 MCG TABLET PO SCH (06:11)
[2024-06-30] MEDS ORDERED: AMIO200T68 PO (06:14)
[2024-06-30] MEDS ORDERED: LOSA100T59 PO (06:16)
[2024-06-30] MEDS ORDERED: CLON0.1T PO (06:17)
[2024-06-30] MEDS ORDERED: METO50TA18 PO (06:18)
[2024-06-30] MEDS ORDERED: LEVO175T4 PO (06:19)
[2024-06-30] MEDS ORDERED: DOXY100T2 PO (06:20)
[2024-06-30] MEDS ORDERED: BUDE10.7 IH (06:22)
[2024-06-30] MEDS ORDERED: AZEL137S11 NS (06:23)
[2024-06-30] MEDS ORDERED: FLUT15.845 NS (06:23)
[2024-06-30] MEDS: guaiFENesin-DM 200/20MG 10ML PO PRN (06:28)
[2024-06-30 08:02] LABS: BASOPHILS # (AUTO) 0.01 K/uL (0.00-0.20); BASOPHILS % (AUTO) 0.1 % (0.0-5.0); EOSINOPHILS # (AUTO) 0.01 K/uL (0.00-0.70); EOSINOPHILS % (AUTO) 0.1 % (0.0-8.0); HEMATOCRIT 43.1 % (36-48); IMMATURE GRANULOCYTE ABSOLUTE 0.08 K/uL (0-1); LYMPHOCYTES # (AUTO) 0.9 K/uL (1.0-4.8); MEAN CORPUSCULAR HEMOGLOBIN 31.5 pg (27.0-33.0); MEAN CORPUSCULAR HGB CONC 33.4 g/dL (32.0-36.0); MEAN CORPUSCULAR VOLUME 94.3 fL (79-99); MONOCYTES # (AUTO) 0.1 K/uL (0.1-1.0); MONOCYTES % (AUTO) 1.1 % (3.0-13.0); NEUTROPHILS # (AUTO) 8.1 K/uL (1.8-7.7); NEUTROPHILS % (AUTO) 87.8 % (40.0-77.0); PLATELET COUNT (AUTO) 182 K/uL (130-400); RED BLOOD CELL COUNT(AUTO) 4.57 MIL/uL (4.00-5.50); RED CELL DISTRIBUTION WIDTH 13.5 % (11.0-15.5); WHITE BLOOD COUNT (AUTO) 9.3 K/uL (4.8-10.8)
[2024-06-30 08:20] LABS: ALBUMIN 3.5 g/dL (3.5-5.0); BILIRUBIN,TOTAL 0.7 mg/dL (0.2-1.0); MAGNESIUM 2.2 mg/dL (1.80-2.40); POTASSIUM 3.1 mmol/L (3.5-5.1); TOTAL PROTEIN, SERUM 7.4 g/dL (6.0-8.3)
[2024-06-30] MEDS: cefTRIAXone 1G VIAL IV SCH (08:38)
[2024-06-30] MEDS: LoSARTan 50 MG TABLET PO SCH (08:39)
[2024-06-30] MEDS: FAMOTIDINE 20MG TAB PO SCH (08:39)
[2024-06-30] MEDS: metoPROLOL tartRATE 25 MG TAB PO SCH (08:39)
[2024-06-30] MEDS: APIXaban 5 MG TABLET PO SCH (08:40)
[2024-06-30 09:02] LABS: THYROID STIMULATING HORMONE 0.91 uIU/mL (0.36-3.74)
[2024-06-30] MEDS ORDERED: PoTASSium chloRIDE 20MEQ/100ML 100 ML IV PRN (09:30)
--- NOTE | 2024-06-30 09:47 | CONS ---
[facility] CONSULTATION NOTE Date Patient Seen: Jun 30, 2024 Time of Visit: 09:43 Supervising Physician: Dr. Elkins Reason for Consultation: Acute respiratory failure/acute asthma exacerbation Primary Care Physician: Self-referred Outpatient Specialists: [ ] Inpatient Consults: [ ] PROBLEM LIST: Acute respiratory failure POA requiring oxygen supplementation. Acute asthma exacerbation POA. Acute group a strep pharyngitis POA. Early pneumonia POA. Sepsis from the above source POA. Hypokalemia POA. Concern for undiagnosed ROSSY. Atrial fibrillation POA with recent history of cardioversion and cardiac ablation. Hyperlipidemia. Hypertension. Hypothyroidism. HPI: This is a 64-year-old female patient who has past medical history that is significant for type 2 diabetes, hypertension, hypothyroidism, coronary artery disease, atrial fibrillation and asthma. The patient reports onset of flu-like symptoms over the past 3 days and was initially self treating at home with no significant relief. The patient later began experiencing throat pain and also began with shortness of breaths. The patient took her rescue inhalers as as she usually does, this time without no significant relief. The patient went to see a local physician who after evaluating the patient directed her to the emergency department for further evaluation and management due to concern for impending respiratory distress. The patient came into the emergency department as advised. Upon initial presentation, vital signs showed a temperature T-max 102.6, she was tachycardic, tachypneic and normotensive. Laboratory data obtained showed initially a WBC count elevation of 12.1, today 9.3. H and H and platelet count were stable. Chemistry panel was notable for a low potassium count and slight increase of renal parameters with a creatinine of 1.1 today 1.0. Lactic acid was 1.5 and procalcitonin of < 0.05. Urinalysis was notable for trace amount of occult blood. Serology was positive for group a strep. Imaging of the chest showed no acute intrapulmonary disease, there was concern for a right lobar infiltrate. In the emergency department, the patient was started on empiric antibiotic therapy with IV Rocephin, bronchodilator therapy and steroid therapy and was later admitted for further inpatient evaluation and management of her condition. During my visit, the patient remained in the emergency department and awaiting bed assignment. The staff nurse reports no acute events otherwise. No other complaint. PAST MEDICAL HX: see above PAST SURGICAL HX: noncontributory SOCIAL HISTORY: No tobacco, ETOH, or illicit drug use Coded Allergies: No Known Allergies (Verified Allergy, Unknown, 08/14/21) REVIEW OF SYSTEMS: 12 point ROS reviewed with patient. Pertinent positives mentioned above. Otherwise negative. PHYSICAL EXAM: GENERAL: Alert, weak, awake oriented x 3 HEENT: EOMI, Sclera non icteric, moist mucosa NECK: Supple, no JVD, trachea midline LUNGS: Diminished breath sounds bilaterally. No wheezes HEART: Regular rate and rhythm. Normal S1 and S2, without murmurs ABD: Abdomen soft, nontender. Bowel sounds present EXT: No clubbing cyanosis or edema NEURO: Alert and oriented to person, follows commands Vital Signs (last 8hr) Date Time Temp Pulse Resp B/P (MAP) Pulse Ox O2 Delivery O2 Flow Rate FiO2 06/30/24 07:58 98.2 108 17 127/77 95 Nasal Cannula* 2 28 06/30/24 07:19 22 N/Cannula Low lpm 2.0 28 06/30/24 05:32 100 20 123/52 96 Nasal Cannula* 2 28 06/30/24 04:01 100 18 138/80 95 Nasal Cannula* 2 28 06/30/24 02:16 100 20 135/76 97 Nasal Cannula* 2 28 06/30/24 01:48 105 22 LABS: Hematology Labs: Test 06/30/24 07:39 06/29/24 17:37 Range/Units White Blood Count 9.3 4.8-10.8 K/uL Red Blood Count 4.57 4.00-5.50 MIL/uL Hemoglobin 14.4 12.0-16.0 g/dL Hematocrit 43.1 36-48 % Mean Corpuscular Volume 94.3 79-99 fL Mean Corpuscular Hemoglobin 31.5 27.0-33.0 pg Mean Corpuscular Hemoglobin Concent 33.4 32.0-36.0 g/dL Red Cell Distribution Width 13.5 11.0-15.5 % Platelet Count 182 130-400 K/uL Mean Platelet Volume 10.3 7.5-10.5 fL Immature Granulocyte % (Auto) 0.9 0-1 % Neutrophils (%) (Auto) 87.8 H 40.0-77.0 % Lymphocytes (%) (Auto) 10.0 L 21.0-51.0 % Monocytes (%) (Auto) 1.1 L 3.0-13.0 % Eosinophils (%) (Auto) 0.1 0.0-8.0 % Basophils (%) (Auto) 0.1 0.0-5.0 % Neutrophils # (Auto) 8.1 H 1.8-7.7 K/uL Lymphocytes # (Auto) 0.9 L 1.0-4.8 K/uL Monocytes # (Auto) 0.1 0.1-1.0 K/uL Eosinophils # (Auto) 0.01 0.00-0.70 K/uL Basophils # (Auto) 0.01 0.00-0.20 K/uL Absolute Immature Granulocyte (auto 0.08 0-1 K/uL Nucleated Red Blood Cells 0.0 0.0-0.19 % White Cell Morphology Comment See comments Chemistry Labs: Test 06/30/24 07:39 06/29/24 17:37 Range/Units Sodium Level 144 136-145 mmol/L Potassium Level 3.1 L 3.5-5.1 mmol/L Chloride Level 108 101-111 mmol/L Carbon Dioxide Level 24 21-32 mmol/L Blood Urea Nitrogen 15 7-18 mg/dL Creatinine 1.0 0.5-1.0 mg/dL Glomerular Filtration Rate Calc 63 >90 mL/min Random Glucose 211 #H 70-105 mg/dL Total Calcium 8.7 8.5-10.1 mg/dL Magnesium Level 2.20 1.80-2.40 mg/dL Total Bilirubin 0.7 0.2-1.0 mg/dL Aspartate Amino Transf (AST/SGOT) 17 10-37 U/L Alanine Aminotransferase (ALT/SGPT) 26 12-78 U/L Alkaline Phosphatase 130 50-136 U/L Troponin I High Sensitivity 27 4-50 ng/L Total Protein 7.4 6.0-8.3 g/dL Albumin 3.5 3.5-5.0 g/dL Procalcitonin < 0.05 L 0.05-0.5 ng/mL Thyroid Stimulating Hormone (TSH) 0.91 # 0.36-3.74 uIU/mL Free Thyroxine (T4) Direct 1.45 0.76-1.46 ng/dL Lactic Acid Level 1.5 0.8-2.5 mmol/L Total Creatine Kinase 172 # 21-232 U/L B-Type Natriuretic Peptide 76 0-100 pg/mL Coagulation Labs: Test 06/30/24 07:39 Range/Units D-Dimer Quantitative (PE/DVT) 403 0-500 ng/mL DIAGNOSTICS / RADIOLOGY RESULTS: [ ] PLAN The patient was admitted and Pulmonary Services was consulted for further assi stance and management. We will continue oxygen supplementation with nasal cannula and we will adjust as necessary. The patient is to continue on her steroid therapy with methylprednisolone 40 mg IV b.i.d. and we will continue on the bronchodilation. The patient is currently on duonebs, considering her history of AFib, I am going to discontinue the duo nebs and offer Atrovent. The patient is to continue on IV Rocephin as ordered and we will monitor the WBC trend and febrile curve. With regards to the concern for ROSSY, the patient will require a sleep study for diagnosis will be performed in the outpatient setting. We will replace the electrolyte deficit. We will monitor the patient's progress and response to management. We will continue provide general supportive care, GI and DVT prophylaxis. Further orders per attending MD and hospital course. Appreciate the opportunity provided to participate in patient's care we will remain available for any further needs. NEURO: Minimize central acting medications as possible. Maintain fall precautions, adequate lighting during the day PULMONARY: Supplemental 02 as needed. Maintain aspiration precautions at all times CARDIOVASCULAR: Follow hemodynamics. Vital signs per facility protocol GI & NUTRITION: Continue with nutritional support. Continue stool softeners and laxatives as needed. KIDNEYS & ELECTROLYTES: Strict monitoring of intake, output and overall fluid balance. Avoid nephrotoxic medications to the extent possible. Medications to be dosed according to renal function. Monitor electrolytes and replace as needed ENDOCRINE: Maintain blood glucose between 100-180 at all times. Hypoglycemia protocol in place INFECTIOUS DISEASE: Trend temperature, WBC and procalcitonin level Follow cultures, deescalate antibiotics as soon as possible. Panculture if new onset fever ONCOLOGY/HEMATOLOGY/COAGULATION: Monitor for s/s of bleeding Monitor hemoglobin, coagulation studies as needed SKIN: Pressure ulcer prevention per facility protocol Specialty mattress ORTHO/REHAB: Continue PT/OT Prophylaxis: Continue GI and DVT prophylaxis Code Status: Full Resuscitation Disposition: TBD Other: Total patient care time exceeds 35 minutes excluding all procedures. PAUL GAN NP Jun 30, 2024 09:47
[2024-06-30 10:22] LABS: ERYTHROCYTE SEDIMENTATION RATE 8 MM/HR (0-30)
--- NOTE | 2024-06-30 10:27 | NUR ---
HOSPITALIST DR LORD VISITED THE PT. RESTARTED HER AMIODARONE. CANCELLED THE VQ SCAN.
--- NOTE | 2024-06-30 10:58 | NUR ---
DR LORD ADVISED TO RESTART AMIODARONE.PT TOOK HER MORNING DOSE OF AMIODARONE 200 MG FROM HER OWN MEDS.
[2024-06-30] MEDS: IpraTROPium 0.5 MG/2.5 ML INH IH ONE (11:28)
[2024-06-30] MEDS: IpraTROPium 0.5 MG/2.5 ML INH IH SCH (11:29)
[2024-06-30] MEDS: acetaMINOPHEN 325 MG TAB PO PRN ×2 (12:09→20:27)
[2024-06-30] MEDS: PoTASSium chl 10% ELIXIR 20MEQ 20 MEQ/15 ML UDCUP PO PRN (12:15)
--- NOTE | 2024-06-30 14:15 | NUR ---
REPORT GIVEN TO CATHERINE
--- NOTE | 2024-06-30 14:18 | NUR ---
POTASSIUM 2ND PO POTASSIUM REPLACEMENT DONE PER PROTOCOL.NEXT DUE AT 16:18.
--- NOTE | 2024-06-30 16:47 | PN ---
[facility] PROGRESS NOTE Date of Service: Jun 30, 2024 Time of Service: 16:43 SUBJECTIVE: 06/30 patient seen at bedside, no acute events overnight. She continues on nasal cannula, V/Q scan was ordered by mid-level on admission, her Wells score shows low probability of PE we will cancel at this time. Although she does have an elevated heart rate she has a history of AFib with RVR and she has not had dose of amiodarone, we will resume her home medication. We will hold albuterol two prevent exacerbating her atrial fibrillation, continue with ipratropium and budesonide. Further orders per pulmonology. TSH and free T4 ordered, they are within normal range. Cultures still pending, we will follow up REVIEW OF SYSTEMS 12 point review of systems negative unless noted in HPI PHYSICAL EXAM GENERAL APPEARANCE: The patient is awake, alert, and oriented, in no acute cardiopulmonary distress. NEUROLOGICAL: Cranial nerves II-XII grossly intact. Motor is 5/5 in bilateral upper and lower extremities proximal to distal. No sensory deficits. HEENT: Face is symmetric. Pupils are equal and reactive. Extraocular movements are intact. NECK: Supple. No JVD. No thyromegaly. No submental, submandibular, pre- /postauricular, occipital or supraclavicular lymphadenopathy. CHEST: Normal chest expansion. No Telemetry. LUNGS: expiratory wheezing to bilateral lung sharif per auscultation CARDIOVASCULAR: Tachycardic . S1 and S2 normal. No appreciable rubs, murmurs or gallops. ABDOMEN: Soft, nontender, and nondistended. There is no rebound, voluntary guarding, or rigidity. : Deferred. No Blue. EXTREMITIES: Non-edematous and not cyanotic. No clubbing. Good capillary refill. SKIN: No skin breakdown. Vital Signs (last 8hr) Date Time Temp Pulse Resp B/P (MAP) Pulse Ox O2 Delivery O2 Flow Rate FiO2 06/30/24 14:40 98.4 108 20 156/87 95 Room Air 06/30/24 14:20 98.8 105 18 128/75 96 Nasal Cannula* 2 28 06/30/24 12:09 98.8 06/30/24 11:59 98.8 102 19 133/70 96 Nasal Cannula* 2 28 06/30/24 10:00 98.2 107 21 131/80 96 Nasal Cannula* 2 28 LABS: Laboratory: Test 06/30/24 07:39 06/29/24 21:44 06/29/24 18:49 06/29/24 17:37 Range/Units White Blood Count 9.3 4.8-10.8 K/uL Red Blood Count 4.57 4.00-5.50 MIL/uL Hemoglobin 14.4 12.0-16.0 g/dL Hematocrit 43.1 36-48 % Mean Corpuscular Volume 94.3 79-99 fL Mean Corpuscular Hemoglobin 31.5 27.0-33.0 pg Mean Corpuscular Hemoglobin Concent 33.4 32.0-36.0 g/dL Red Cell Distribution Width 13.5 11.0-15.5 % Platelet Count 182 130-400 K/uL Mean Platelet Volume 10.3 7.5-10.5 fL Immature Granulocyte % (Auto) 0.9 0-1 % Neutrophils (%) (Auto) 87.8 H 40.0-77.0 % Lymphocytes (%) (Auto) 10.0 L 21.0-51.0 % Monocytes (%) (Auto) 1.1 L 3.0-13.0 % Eosinophils (%) (Auto) 0.1 0.0-8.0 % Basophils (%) (Auto) 0.1 0.0-5.0 % Neutrophils # (Auto) 8.1 H 1.8-7.7 K/uL Lymphocytes # (Auto) 0.9 L 1.0-4.8 K/uL Monocytes # (Auto) 0.1 0.1-1.0 K/uL Eosinophils # (Auto) 0.01 0.00-0.70 K/uL Basophils # (Auto) 0.01 0.00-0.20 K/uL Absolute Immature Granulocyte (auto 0.08 0-1 K/uL Nucleated Red Blood Cells 0.0 0.0-0.19 % Erythrocyte Sedimentation Rate 8 0-30 MM/HR D-Dimer Quantitative (PE/DVT) 403 0-500 ng/mL Sodium Level 144 136-145 mmol/L Potassium Level 3.1 L 3.5-5.1 mmol/L Chloride Level 108 101-111 mmol/L Carbon Dioxide Level 24 21-32 mmol/L Blood Urea Nitrogen 15 7-18 mg/dL Creatinine 1.0 0.5-1.0 mg/dL Glomerular Filtration Rate Calc 63 >90 mL/min Random Glucose 211 #H 70-105 mg/dL Total Calcium 8.7 8.5-10.1 mg/dL Magnesium Level 2.20 1.80-2.40 mg/dL Total Bilirubin 0.7 0.2-1.0 mg/dL Aspartate Amino Transf (AST/SGOT) 17 10-37 U/L Alanine Aminotransferase (ALT/SGPT) 26 12-78 U/L Alkaline Phosphatase 130 50-136 U/L Troponin I High Sensitivity 27 4-50 ng/L Total Protein 7.4 6.0-8.3 g/dL Albumin 3.5 3.5-5.0 g/dL Procalcitonin < 0.05 L 0.05-0.5 ng/mL Thyroid Stimulating Hormone (TSH) 0.91 # 0.36-3.74 uIU/mL Free Thyroxine (T4) Direct 1.45 0.76-1.46 ng/dL Group A Streptococcus Rapid positive *A NEGATIVE Urine Color LIGHT-YELLOW YELLOW Urine Appearance CLEAR CLEAR Urine pH 6.0 5.0-8.0 Urine Specific [place] 1.014 1.001-1.031 Urine Protein NEGATIVE NEGATIVE mg/dL Urine Glucose (UA) NEGATIVE NEGATIVE mg/dL Urine Ketones NEGATIVE NEGATIVE mg/dL Urine Occult Blood +- (TRACE) H NEGATIVE Urine Nitrate NEGATIVE NEGATIVE Urine Bilirubin NEGATIVE NEGATIVE mg/dL Urine Urobilinogen 0.2 0.2-1.0 mg/dL Urine Leukocyte Esterase NEGATIVE NEGATIVE Tabitha/uL Urine RBC 0-1 0-1 /HPF Urine WBC 0-1 0-1 /HPF Urine Squamous Epithelial Cells RARE 0-2 /HPF Urine Bacteria None None Seen /HPF White Cell Morphology Comment See comments Lactic Acid Level 1.5 0.8-2.5 mmol/L Total Creatine Kinase 172 # 21-232 U/L B-Type Natriuretic Peptide 76 0-100 pg/mL Test 06/29/24 17:22 Range/Units Influenza Type A Antigen Negative For Type A NEGATIVE Influenza Type B Antigen Negative For Type B NEGATIVE SARS-CoV-2, RNA, NAAT NEGATIVE SARS CoV-2 NEGATIVE Current Medications Medications (Trade) Dose Ordered Sig/Hunter Route PRN Reason Start Time Stop Time Status Last Admin Dose Admin Acetaminophen (TYLenol 325MG TAB) 650 mg Q4H PRN PO MILD PAIN (1-3) 06/29/24 20:30 07/29/24 20:29 Acetaminophen (TYLenol 325MG TAB) 650 mg Q6H PRN PO TEMPERATURE GREATER THAN 101.5 06/29/24 20:30 07/29/24 20:29 06/30/24 12:09 650 MG Acetaminophen (TYLenol 500MG TAB) 1,000 mg ONCE PO 06/29/24 18:00 06/29/24 22:00 DC 06/29/24 19:17 1,000 MG Albuterol (DUOneb) 1 udvial [id number] IH 06/29/24 22:00 06/30/24 09:48 DC 06/30/24 07:27 1 UDVIAL Amiodarone HCl (pacERONE 200MG) 200 mg BID PO 06/30/24 21:00 06/30/24 10:49 DC Amiodarone HCl (pacERONE 200MG) 200 mg BID PO 06/30/24 21:00 07/30/24 20:59 Apixaban (EliquIS) 5 mg BID PO 06/30/24 09:00 07/30/24 08:59 06/30/24 08:40 5 MG Atorvastatin Calcium (LIPItor 40MG) 40 mg HS PO 06/30/24 21:00 07/30/24 20:59 Ceftriaxone Sodium (ROCEphine 1G INJ) 1 gm BID IV 06/29/24 21:00 06/29/24 21:02 DC Ceftriaxone Sodium (ROCEphine 1G INJ) 1 gm BID IV 06/30/24 09:00 07/10/24 08:59 06/30/24 08:38 1 GM Famotidine (Pepcid 20mg Tab) 20 mg DAILY PO 06/30/24 09:00 07/30/24 08:59 06/30/24 08:39 20 MG Guaifenesin/ Dextromethorphan (RobiTUSSin DM 200/20MG 10ML) 10 ml Q4H PRN PO COUGH 06/29/24 20:30 07/29/24 20:29 06/30/24 06:28 10 ML Ipratropium Micro (AtrovENT UD) 0.5 MG [id number] IH 06/30/24 12:00 07/30/24 11:59 Levothyroxine Sodium (SYNTHroid 150MCG TAB) 150 mcg SYN PO 06/30/24 06:30 07/30/24 06:29 06/30/24 06:11 150 MCG Losartan Potassium (CozAAR 50 mg TAB) 50 mg BID PO 06/30/24 09:00 07/30/24 08:59 06/30/24 08:39 50 MG Magnesium Sulfate 50 ml @ 0 mls/hr PROTOCOL IV 06/29/24 17:30 07/29/24 17:29 06/29/24 19:17 50 MLS/HR Methylprednisolone Sodium Succinate (Solu-medROL 40MG) 40 mg BID IVP 06/29/24 21:00 07/29/24 20:59 06/30/24 08:39 40 MG Metoprolol Tartrate (loprESSOR) 25 mg BID PO 06/30/24 09:00 07/30/24 08:59 06/30/24 08:39 25 MG Ondansetron HCl (zoFRAN 4MG INJ) 4 mg Q6H PRN IV NAUSEA/VOMITING 06/29/24 20:30 07/29/24 20:29 Potassium Chloride 100 ml @ 100 mls/hr AD PRN IV POTASSIUM PROTOCOL 06/30/24 09:30 07/30/24 09:29 Potassium Chloride (K-Dur/Klor-Con 20meq) 20 meq AD PRN PO POTASSIUM PROTOCOL 06/30/24 09:30 07/30/24 09:29 Potassium Chloride (KCl 10% Elixir 20meq/15ml) 20 meq AD PRN PO POTASSIUM PROTOCOL 06/30/24 09:30 07/30/24 09:29 06/30/24 14:22 20 MEQ Sodium Chloride 1,000 ml @ 75 mls/hr [id number] IV 06/29/24 20:30 07/29/24 20:29 06/30/24 14:22 75 MLS/HR DIAGNOSTICS / RADIOLOGY: [ ] ASSESSMENT: Acute respiratory failure without mechanical ventilation POA Acute asthma exacerbation POA Sepsis with unknown source POA Acute kidney injury on CKD POA Hypokalemia POA Undiagnosed obstructive sleep apnea POA Morbid obesity POA Atrial fibrillation on Eliquis POA Hyperlipidemia POA Hypertension POA Hypothyroidism POA History of cardioversion and cardiac ablation POA PLAN: Continue heart healthy diet Continue Rocephin 1 g IV b.i.d. for empiric coverage Continue methylprednisolone 40 mg IV b.i.d. Continue Famotidine 20 mg p.o. daily for GI prophylaxis May continue oxygen supplementation to keep saturation between 88-92% Hold albuterol Continue ipratroprium and budesonide Cultures pending, will follow up Cancel V/Q scanb Pulmonology consulted, appreciate recommendations Disposition: Pending improvement in clinical status BENTON TORREZ MD Jun 30, 2024 16:46
--- NOTE | 2024-06-30 17:06 | HMCSR ---
APPROVED REPORT EXAM: Two-dimensional and M-mode echocardiogram with Doppler and color Doppler. INDICATION ICD: Shortness of breath R06.02 2D Dimensions RVDd3.7 cmLVEF(%)58.9 (>50%)LVED Vol(simp.)86.0 mL IVSd1.1 (0.7-1.1cm)FS(%)30 %LVES Vol(simp.)39.0 mL LVDd3.5 (3.8-5.6cm)LA (2D)4.5 (1.6-4.0cm)LVEF(%, simp.)54 % PWd1.2 (0.7-1.1cm)Ao Root(2D)2.9 (2.0-3.7cm)LA ESV INDEX (BP)38.43 mL/m2 LVDs2.4 (2.5-4.0cm)LVOT diam2.1 (1.8-2.4cm) IVC diam2.2 cm Deformation Strain Apical 4-12.9 % Apical 2-12.1 % Apical 3-13.5 % Global Strain-12.8 % M-Mode Dimensions EPSS0.9 cm LA (MM)4.6 (1.6-4.0cm) Ao Root(MM)2.8 (2.0-3.7cm) Aortic Valve AoV Vmax1.3 m/Aravind Peak GR6.8 mmHg AoV VTI0.2 mAo Mean GR3.9 mmHg Mitral Valve MV E Okgt352.9 cm/sDECEL Uomi890 ms MV A Vmax55.6 cm/sP 1/2 T54 ms E/A ratio2.1MVA (PHT)4.1 cm2 TDI E/E' Lnvaxj80.1E/E' Lateral9.3 Medial E' Peak V8.34 cm/sLateral E' Peak V12.66 cm/s Tricuspid Valve TR Vmax2.4 m/sRVSP22.5 mmHg TR Peak GR22.5 mmHg Left Ventricle The left ventricle is normal size. There is normal LV segmental wall motion. There is normal left emily tricular wall thickness. LVEF is 50-55%. Indeterminate diastolic dysfunction. Right Ventricle The right ventricle is normal size. The right ventricular systolic function is normal. Atria The left atrium is moderately dilated. The right atrium size is normal. Aortic Valve Aortic valve is not well visualized but no significant valvular abnormalities noted. No aortic regurg itation is present. There is no aortic valvular stenosis. Mitral Valve The mitral valve is normal in structure. Mitral regurgitation is trace. There is no mitral valve sten osis. Tricuspid Valve The tricuspid valve is normal in structure. There is trace tricuspid valve regurgitation noted. Canno t exclude tricuspid valve vegetation. Pulmonic Valve Pulmonic valve is not well visualized. There is no pulmonic valvular regurgitation. Great Vessels The aortic root is normal in size. IVC is dilated and collapses >50% with inspiration. Pericardium There is no pericardial effusion. Other Information Quality : Fair Technically limited study due to body habitus. Conclusion The left ventricle is normal size. LVEF is 50-55% with normal LV segmental wall motion. Indeterminate diastolic dysfunction. The right ventricular systolic function is normal. The left atrium is moderately dilated. No hemodynamically significant valvular abnormalities. There is no pericardial effusion.
[2024-06-30] MEDS: AMIOdarone 200 MG TABLET PO SCH (20:22)
[2024-06-30] MEDS: atorVAStatin 40 MG TABLET PO SCH (20:22)
[2024-06-30] MEDS ORDERED: AMIOdarone 200 MG TABLET PO SCH (21:00)
[2024-07-01] VITALS (12 sets, daily range): BP systolic 131–153; BP diastolic 81–102; PULSE 96–109; RESP 18–24; TEMP 97.9–98.2; O2SAT 96–98
[2024-07-01 05:44] LABS: CREATININE 0.8 mg/dL (0.5-1.0); MAGNESIUM 2.1 mg/dL (1.80-2.40); POTASSIUM 3.7 mmol/L (3.5-5.1)
[2024-07-01 05:55] LABS: BASOPHILS # (AUTO) 0.02 K/uL (0.00-0.20); BASOPHILS % (AUTO) 0.1 % (0.0-5.0); HEMATOCRIT 43.4 % (36-48); IMMATURE GRANULOCYTE ABSOLUTE 0.13 K/uL (0-1); LYMPHOCYTES # (AUTO) 1.1 K/uL (1.0-4.8); LYMPHOCYTES % (AUTO) 7.1 % (21.0-51.0); MEAN CORPUSCULAR HEMOGLOBIN 31.1 pg (27.0-33.0); MEAN CORPUSCULAR HGB CONC 32.7 g/dL (32.0-36.0); MEAN CORPUSCULAR VOLUME 95.2 fL (79-99); MONOCYTES # (AUTO) 0.4 K/uL (0.1-1.0); MONOCYTES % (AUTO) 2.5 % (3.0-13.0); NEUTROPHILS # (AUTO) 14.2 K/uL (1.8-7.7); NEUTROPHILS % (AUTO) 89.5 % (40.0-77.0); PLATELET COUNT (AUTO) 215 K/uL (130-400); RED BLOOD CELL COUNT(AUTO) 4.56 MIL/uL (4.00-5.50); RED CELL DISTRIBUTION WIDTH 13.8 % (11.0-15.5); WHITE BLOOD COUNT (AUTO) 15.8 K/uL (4.8-10.8)
--- NOTE | 2024-07-01 12:33 | PN ---
[facility] PROGRESS NOTE Date Patient Seen: Jul 01, 2024 Time of Visit: 12:32 Supervising Physician: Dr. Rodrick Elkins Primary Care Physician: Self-referred Outpatient Specialists: [ ] Inpatient Consults: [ ] PROBLEM LIST: Acute respiratory failure POA requiring oxygen supplementation. Acute asthma exacerbation POA. Acute group a strep pharyngitis POA. Early pneumonia POA. Sepsis from the above source POA. Hypokalemia POA. Concern for undiagnosed ROSSY. Atrial fibrillation POA with recent history of cardioversion and cardiac ablation. Hyperlipidemia. Hypertension. Hypothyroidism. INTERVAL HISTORY: Patient evaluated at bedside today, she currently continues on 2 L nasal cannula, peak flow measurements at 200 today as reported by the patient. Patient remains afebrile, vitals within normal limits, currently on Rocephin as well as Solu-Medrol 40 b.i.d.. Patient states that she feels improved, however not at baseline. Recommendations to continue with antibiotic treatment, steroid therapy, as well as nebulizer treatments. Patient's white count is increased today from 12.1-15.8, likely due to steroid use at this time. REVIEW OF SYSTEMS: 12 point ROS reviewed with patient. Pertinent positives mentioned above. Otherwise negative. PHYSICAL EXAM: GENERAL: Alert, weak, awake oriented x 3 HEENT: EOMI, Sclera non icteric, moist mucosa NECK: Supple, no JVD, trachea midline LUNGS: Diminished breath sounds bilaterally. No wheezes HEART: Regular rate and rhythm. Normal S1 and S2, without murmurs ABD: Abdomen soft, nontender. Bowel sounds present EXT: No clubbing cyanosis or edema NEURO: Alert and oriented to person, follows commands Vital Signs (last 8hr) Date Time Temp Pulse Resp B/P (MAP) Pulse Ox O2 Delivery O2 Flow Rate FiO2 07/01/24 11:21 97 20 N/A Room Air 07/01/24 11:13 97 18 07/01/24 08:23 98.2 109 20 147/102 98 07/01/24 08:00 98 Nasal Cannula* 2 28 07/01/24 07:27 102 24 N/Cannula Low lpm 2.0 28 07/01/24 07:23 102 18 LABS: Hematology Labs: Test 07/01/24 05:24 06/30/24 07:39 06/29/24 17:37 Range/Units White Blood Count 15.8 #H 4.8-10.8 K/uL Red Blood Count 4.56 4.00-5.50 MIL/uL Hemoglobin 14.2 12.0-16.0 g/dL Hematocrit 43.4 36-48 % Mean Corpuscular Volume 95.2 79-99 fL Mean Corpuscular Hemoglobin 31.1 27.0-33.0 pg Mean Corpuscular Hemoglobin Concent 32.7 32.0-36.0 g/dL Red Cell Distribution Width 13.8 11.0-15.5 % Platelet Count 215 130-400 K/uL Mean Platelet Volume 10.5 7.5-10.5 fL Immature Granulocyte % (Auto) 0.8 0-1 % Neutrophils (%) (Auto) 89.5 H 40.0-77.0 % Lymphocytes (%) (Auto) 7.1 L 21.0-51.0 % Monocytes (%) (Auto) 2.5 L 3.0-13.0 % Eosinophils (%) (Auto) 0.0 0.0-8.0 % Basophils (%) (Auto) 0.1 0.0-5.0 % Neutrophils # (Auto) 14.2 H 1.8-7.7 K/uL Lymphocytes # (Auto) 1.1 1.0-4.8 K/uL Monocytes # (Auto) 0.4 0.1-1.0 K/uL Eosinophils # (Auto) 0.00 0.00-0.70 K/uL Basophils # (Auto) 0.02 0.00-0.20 K/uL Absolute Immature Granulocyte (auto 0.13 0-1 K/uL Nucleated Red Blood Cells 0.0 0.0-0.19 % Erythrocyte Sedimentation Rate 8 0-30 MM/HR White Cell Morphology Comment See comments Chemistry Labs: Test 07/01/24 05:24 06/30/24 07:39 06/29/24 17:37 Range/Units Sodium Level 144 136-145 mmol/L Potassium Level 3.7 3.5-5.1 mmol/L Chloride Level 110 101-111 mmol/L Carbon Dioxide Level 24 21-32 mmol/L Blood Urea Nitrogen 18 7-18 mg/dL Creatinine 0.8 0.5-1.0 mg/dL Glomerular Filtration Rate Calc 82 >90 mL/min Random Glucose 167 H 70-105 mg/dL Total Calcium 8.3 L 8.5-10.1 mg/dL Magnesium Level 2.10 1.80-2.40 mg/dL Total Bilirubin 0.7 0.2-1.0 mg/dL Aspartate Amino Transf (AST/SGOT) 17 10-37 U/L Alanine Aminotransferase (ALT/SGPT) 26 12-78 U/L Alkaline Phosphatase 130 50-136 U/L Troponin I High Sensitivity 27 4-50 ng/L Total Protein 7.4 6.0-8.3 g/dL Albumin 3.5 3.5-5.0 g/dL Procalcitonin < 0.05 L 0.05-0.5 ng/mL Thyroid Stimulating Hormone (TSH) 0.91 # 0.36-3.74 uIU/mL Free Thyroxine (T4) Direct 1.45 0.76-1.46 ng/dL Lactic Acid Level 1.5 0.8-2.5 mmol/L Total Creatine Kinase 172 # 21-232 U/L B-Type Natriuretic Peptide 76 0-100 pg/mL Coagulation Labs: Test 06/30/24 07:39 Range/Units D-Dimer Quantitative (PE/DVT) 403 0-500 ng/mL DIAGNOSTICS / RADIOLOGY RESULTS: [ ] PLAN The patient was admitted and Pulmonary Services was consulted for further assistance and management. We will continue oxygen supplementation with nasal cannula and we will adjust as necessary. The patient is to continue on her steroid therapy with methylprednisolone 40 mg IV b.i.d. and we will continue on the bronchodilation. The patient is currently on duonebs, considering her histo ry of AFib, I am going to discontinue the duo nebs and offer Atrovent. The patient is to continue on IV Rocephin as ordered and we will monitor the WBC trend and febrile curve. With regards to the concern for ROSSY, the patient will require a sleep study for diagnosis will be performed in the outpatient setting. We will replace the electrolyte deficit. We will monitor the patient's progress and response to management. We will continue provide general supportive care, GI and DVT prophylaxis. Further orders per attending MD and hospital course. Appreciate the opportunity provided to participate in patient's care we will remain available for any further needs. NEURO: Minimize central acting medications as possible. Maintain fall precautions, adequate lighting during the day PULMONARY: Supplemental 02 as needed. Maintain aspiration precautions at all times CARDIOVASCULAR: Follow hemodynamics. Vital signs per facility protocol GI & NUTRITION: Continue with nutritional support. Continue stool softeners and laxatives as needed. KIDNEYS & ELECTROLYTES: Strict monitoring of intake, output and overall fluid balance. Avoid nephrotoxic medications to the extent possible. Medications to be dosed according to renal function. Monitor electrolytes and replace as needed ENDOCRINE: Maintain blood glucose between 100-180 at all times. Hypoglycemia protocol in place INFECTIOUS DISEASE: Trend temperature, WBC and procalcitonin level Follow cultures, deescalate antibiotics as soon as possible. Panculture if new onset fever ONCOLOGY/HEMATOLOGY/COAGULATION: Monitor for s/s of bleeding Monitor hemoglobin, coagulation studies as needed SKIN: Pressure ulcer prevention per facility protocol Specialty mattress ORTHO/REHAB: Continue PT/OT Prophylaxis: Continue GI and DVT prophylaxis Code Status: Full Resuscitation Disposition: TBD Other: Total patient care time exceeds 35 minutes excluding all procedures. JUNIOR MURPHY Jul 01, 2024 12:33
--- NOTE | 2024-07-01 14:04 | PN ---
[facility] PROGRESS NOTE Date of Service: Jul 01, 2024 Time of Service: 13:54 SUBJECTIVE: 06/30 patient seen at bedside, no acute events overnight. She continues on nasal cannula, V/Q scan was ordered by mid-level on admission, her Wells score shows low probability of PE we will cancel at this time. Although she does have an elevated heart rate she has a history of AFib with RVR and she has not had dose of amiodarone, we will resume her home medication. We will hold albuterol two prevent exacerbating her atrial fibrillation, continue with ipratropium and budesonide. Further orders per pulmonology. TSH and free T4 ordered, they are within normal range. Cultures still pending, we will follow up 07/01 Pt seen at bedside, no acute events overnight. She still has prominent wheeze, continue with current care, nebulizer treatments, systemic steroids. Further care per pulmonology REVIEW OF SYSTEMS 12 point review of systems negative unless noted in HPI PHYSICAL EXAM GENERAL APPEARANCE: The patient is awake, alert, and oriented, in no acute cardiopulmonary distress. NEUROLOGICAL: Cranial nerves II-XII grossly intact. Motor is 5/5 in bilateral upper and lower extremities proximal to distal. No sensory deficits. HEENT: Face is symmetric. Pupils are equal and reactive. Extraocular movements are intact. NECK: Supple. No JVD. No thyromegaly. No submental, submandibular, pre- /postauricular, occipital or supraclavicular lymphadenopathy. CHEST: Normal chest expansion. No Telemetry. LUNGS: expiratory wheezing to bilateral lung sharif per auscultation CARDIOVASCULAR: Tachycardic . S1 and S2 normal. No appreciable rubs, murmurs or gallops. ABDOMEN: Soft, nontender, and nondistended. There is no rebound, voluntary guarding, or rigidity. : Deferred. No Blue. EXTREMITIES: Non-edematous and not cyanotic. No clubbing. Good capillary refill. SKIN: No skin breakdown. Vital Signs (last 8hr) Date Time Temp Pulse Resp B/P (MAP) Pulse Ox O2 Delivery O2 Flow Rate FiO2 07/01/24 11:21 97 20 N/A Room Air 07/01/24 11:13 97 18 07/01/24 08:23 98.2 109 20 147/102 98 07/01/24 08:00 98 Nasal Cannula* 2 28 07/01/24 07:27 102 24 N/Cannula Low lpm 2.0 28 07/01/24 07:23 102 18 LABS: Laboratory: Test 07/01/24 05:24 06/30/24 07:39 06/29/24 21:44 06/29/24 18:49 Range/Units White Blood Count 15.8 #H 4.8-10.8 K/uL Red Blood Count 4.56 4.00-5.50 MIL/uL Hemoglobin 14.2 12.0-16.0 g/dL Hematocrit 43.4 36-48 % Mean Corpuscular Volume 95.2 79-99 fL Mean Corpuscular Hemoglobin 31.1 27.0-33.0 pg Mean Corpuscular Hemoglobin Concent 32.7 32.0-36.0 g/dL Red Cell Distribution Width 13.8 11.0-15.5 % Platelet Count 215 130-400 K/uL Mean Platelet Volume 10.5 7.5-10.5 fL Immature Granulocyte % (Auto) 0.8 0-1 % Neutrophils (%) (Auto) 89.5 H 40.0-77.0 % Lymphocytes (%) (Auto) 7.1 L 21.0-51.0 % Monocytes (%) (Auto) 2.5 L 3.0-13.0 % Eosinophils (%) (Auto) 0.0 0.0-8.0 % Basophils (%) (Auto) 0.1 0.0-5.0 % Neutrophils # (Auto) 14.2 H 1.8-7.7 K/uL Lymphocytes # (Auto) 1.1 1.0-4.8 K/uL Monocytes # (Auto) 0.4 0.1-1.0 K/uL Eosinophils # (Auto) 0.00 0.00-0.70 K/uL Basophils # (Auto) 0.02 0.00-0.20 K/uL Absolute Immature Granulocyte (auto 0.13 0-1 K/uL Nucleated Red Blood Cells 0.0 0.0-0.19 % Sodium Level 144 136-145 mmol/L Potassium Level 3.7 3.5-5.1 mmol/L Chloride Level 110 101-111 mmol/L Carbon Dioxide Level 24 21-32 mmol/L Blood Urea Nitrogen 18 7-18 mg/dL Creatinine 0.8 0.5-1.0 mg/dL Glomerular Filtration Rate Calc 82 >90 mL/min Random Glucose 167 H 70-105 mg/dL Total Calcium 8.3 L 8.5-10.1 mg/dL Magnesium Level 2.10 1.80-2.40 mg/dL Erythrocyte Sedimentation Rate 8 0-30 MM/HR D-Dimer Quantitative (PE/DVT) 403 0-500 ng/mL Total Bilirubin 0.7 0.2-1.0 mg/dL Aspartate Amino Transf (AST/SGOT) 17 10-37 U/L Alanine Aminotransferase (ALT/SGPT) 26 12-78 U/L Alkaline Phosphatase 130 50-136 U/L Troponin I High Sensitivity 27 4-50 ng/L Total Protein 7.4 6.0-8.3 g/dL Albumin 3.5 3.5-5.0 g/dL Procalcitonin < 0.05 L 0.05-0.5 ng/mL Thyroid Stimulating Hormone (TSH) 0.91 # 0.36-3.74 uIU/mL Free Thyroxine (T4) Direct 1.45 0.76-1.46 ng/dL Group A Streptococcus Rapid positive *A NEGATIVE Urine Color LIGHT-YELLOW YELLOW Urine Appearance CLEAR CLEAR Urine pH 6.0 5.0-8.0 Urine Specific [place] 1.014 1.001-1.031 Urine Protein NEGATIVE NEGATIVE mg/dL Urine Glucose (UA) NEGATIVE NEGATIVE mg/dL Urine Ketones NEGATIVE NEGATIVE mg/dL Urine Occult Blood +- (TRACE) H NEGATIVE Urine Nitrate NEGATIVE NEGATIVE Urine Bilirubin NEGATIVE NEGATIVE mg/dL Urine Urobilinogen 0.2 0.2-1.0 mg/dL Urine Leukocyte Esterase NEGATIVE NEGATIVE Tabitha/uL Urine RBC 0-1 0-1 /HPF Urine WBC 0-1 0-1 /HPF Urine Squamous Epithelial Cells RARE 0-2 /HPF Urine Bacteria None None Seen /HPF Test 06/29/24 17:37 06/29/24 17:22 Range/Units White Cell Morphology Comment See comments Lactic Acid Level 1.5 0.8-2.5 mmol/L Total Creatine Kinase 172 # 21-232 U/L B-Type Natriuretic Peptide 76 0-100 pg/mL Influenza Type A Antigen Negative For Type A NEGATIVE Influenza Type B Antigen Negative For Type B NEGATIVE SARS-CoV-2, RNA, NAAT NEGATIVE SARS CoV-2 NEGATIVE Current Medications Medications (Trade) Dose Ordered Sig/Hunter Route PRN Reason Start Time Stop Time Status Last Admin Dose Admin Acetaminophen (TYLenol 325MG TAB) 650 mg Q4H PRN PO MILD PAIN (1-3) 06/29/24 20:30 07/29/24 20:29 06/30/24 20:27 650 MG Acetaminophen (TYLenol 325MG TAB) 650 mg Q6H PRN PO TEMPERATURE GREATER THAN 101.5 06/29/24 20:30 07/29/24 20:29 06/30/24 12:09 650 MG Acetaminophen (TYLenol 500MG TAB) 1,000 mg ONCE PO 06/29/24 18:00 06/29/24 22:00 DC 06/29/24 19:17 1,000 MG Albuterol (DUOneb) 1 udvial [id number] IH 06/29/24 22:00 06/30/24 09:48 DC 06/30/24 07:27 1 UDVIAL Amiodarone HCl (pacERONE 200MG) 200 mg BID PO 06/30/24 21:00 06/30/24 10:49 DC Amiodarone HCl (pacERONE 200MG) 200 mg BID PO 06/30/24 21:00 07/30/24 20:59 07/01/24 08:15 200 MG Apixaban (EliquIS) 5 mg BID PO 06/30/24 09:00 07/30/24 08:59 07/01/24 08:12 5 MG Atorvastatin Calcium (LIPItor 40MG) 40 mg HS PO 06/30/24 21:00 07/30/24 20:59 06/30/24 20:22 40 MG Ceftriaxone Sodium (ROCEphine 1G INJ) 1 gm BID IV 06/29/24 21:00 06/29/24 21:02 DC Ceftriaxone Sodium (ROCEphine 1G INJ) 1 gm BID IV 06/30/24 09:00 07/10/24 08:59 07/01/24 08:11 1 GM Famotidine (Pepcid 20mg Tab) 20 mg DAILY PO 06/30/24 09:00 07/30/24 08:59 07/01/24 08:15 20 MG Guaifenesin/ Dextromethorphan (RobiTUSSin DM 200/20MG 10ML) 10 ml Q4H PRN PO COUGH 06/29/24 20:30 07/29/24 20:29 07/01/24 06:23 10 ML Ipratropium [place] (AtrovENT UD) 0.5 MG Q1ADILK IH 06/30/24 12:00 07/30/24 11:59 07/01/24 11:13 0.5 MG Levothyroxine Sodium (SYNTHroid 150MCG TAB) 150 mcg SYN PO 06/30/24 06:30 07/30/24 06:29 07/01/24 06:14 150 MCG Losartan Potassium (CozAAR 50 mg TAB) 50 mg BID PO 06/30/24 09:00 07/30/24 08:59 07/01/24 08:15 50 MG Magnesium Sulfate 50 ml @ 0 mls/hr PROTOCOL IV 06/29/24 17:30 07/29/24 17:29 06/29/24 19:17 50 MLS/HR Methylprednisolone Sodium Succinate (Solu-medROL 40MG) 40 mg BID IVP 06/29/24 21:00 07/29/24 20:59 07/01/24 08:16 40 MG Metoprolol Tartrate (loprESSOR) 25 mg BID PO 06/30/24 09:00 07/30/24 08:59 07/01/24 08:11 25 MG Ondansetron HCl (zoFRAN 4MG INJ) 4 mg Q6H PRN IV NAUSEA/VOMITING 06/29/24 20:30 07/29/24 20:29 Potassium Chloride 100 ml @ 100 mls/hr AD PRN IV POTASSIUM PROTOCOL 06/30/24 09:30 07/30/24 09:29 Potassium Chloride (K-Dur/Klor-Con 20meq) 20 meq AD PRN PO POTASSIUM PROTOCOL 06/30/24 09:30 07/30/24 09:29 Potassium Chloride (KCl 10% Elixir 20meq/15ml) 20 meq AD PRN PO POTASSIUM PROTOCOL 06/30/24 09:30 07/30/24 09:29 07/01/24 06:15 20 MEQ Sodium Chloride 1,000 ml @ 75 mls/hr [id number] IV 06/29/24 20:30 07/29/24 20:29 06/30/24 14:22 75 MLS/HR DIAGNOSTICS / RADIOLOGY: [ ] ASSESSMENT: Acute respiratory failure without mechanical ventilation POA Acute asthma exacerbation POA Sepsis with unknown source POA Acute kidney injury on CKD POA Hypokalemia POA Undiagnosed obstructive sleep apnea POA Morbid obesity POA Atrial fibrillation on Eliquis POA Hyperlipidemia POA Hypertension POA Hypothyroidism POA History of cardioversion and cardiac ablation POA PLAN: Continue heart healthy diet Continue Rocephin 1 g IV b.i.d. for empiric coverage Continue methylprednisolone 40 mg IV b.i.d. Continue Famotidine 20 mg p.o. daily for GI prophylaxis May continue oxygen supplementation to keep saturation between 88-92% Hold albuterol Continue ipratroprium and budesonide Cultures pending, will follow up Cancel V/Q scanb Pulmonology consulted, appreciate recommendations Disposition: Pending improvement in clinical status BENTON TORREZ MD Jul 01, 2024 14:04
[2024-07-02] VITALS (13 sets, daily range): BP systolic 108–150; BP diastolic 50–95; PULSE 80–106; RESP 17–20; TEMP 97.6–98.5; O2SAT 95–99
[2024-07-02 05:11] LABS: BASOPHILS # (AUTO) 0.04 K/uL (0.00-0.20); BASOPHILS % (AUTO) 0.3 % (0.0-5.0); EOSINOPHILS # (AUTO) 0.01 K/uL (0.00-0.70); EOSINOPHILS % (AUTO) 0.1 % (0.0-8.0); HEMATOCRIT 43.6 % (36-48); IMMATURE GRANULOCYTE ABSOLUTE 0.24 K/uL (0-1); LYMPHOCYTES # (AUTO) 1.2 K/uL (1.0-4.8); LYMPHOCYTES % (AUTO) 8.5 % (21.0-51.0); MEAN CORPUSCULAR HEMOGLOBIN 31.2 pg (27.0-33.0); MEAN CORPUSCULAR VOLUME 94.6 fL (79-99); MONOCYTES # (AUTO) 0.4 K/uL (0.1-1.0); MONOCYTES % (AUTO) 2.7 % (3.0-13.0); NEUTROPHILS % (AUTO) 86.7 % (40.0-77.0); PLATELET COUNT (AUTO) 202 K/uL (130-400); RED BLOOD CELL COUNT(AUTO) 4.61 MIL/uL (4.00-5.50); RED CELL DISTRIBUTION WIDTH 13.6 % (11.0-15.5); WHITE BLOOD COUNT (AUTO) 13.9 K/uL (4.8-10.8)
[2024-07-02 05:25] LABS: CREATININE 0.8 mg/dL (0.5-1.0); POTASSIUM 3.7 mmol/L (3.5-5.1)
[2024-07-02] MEDS: BENZOCAINE/MENTH/CETYLPYRD CL 1 EACH LOZENGE MM PRN (09:46)
--- NOTE | 2024-07-02 11:25 | PN ---
[facility] PROGRESS NOTE Date Patient Seen: Jul 02, 2024 Time of Visit: 11:21 Supervising Physician: Dr. Juan Miguel Farrell Primary Care Physician: Self-referred Outpatient Specialists: [ ] Inpatient Consults: [ ] PROBLEM LIST: Acute respiratory failure POA requiring oxygen supplementation, now on room air Acute asthma exacerbation, resolved Acute group a strep pharyngitis, treating Early pneumonia, treating, improved Sepsis from the above source, resolved Hypokalemia POA. Concern for undiagnosed ROSSY. Atrial fibrillation POA with recent history of cardioversion and cardiac ablation. Hyperlipidemia. Hypertension. Hypothyroidism. INTERVAL HISTORY: Patient evaluated at bedside, she is currently on room air, denies any chest pain or shortness of breath at this time. Patient has been tolerating her diet well, she continues on Rocephin as well as Solu-Medrol 40 mg b.i.d.. Patient's white count today is 13.9, down from yesterday with likely elevated due to her steroid dose. Disposition per primary, begin steroid tapering, consider oral antibiotics to complete antibiotic regimen upon discharge. We recommend the patient follow up [facility] for outpatient management of her asthma. REVIEW OF SYSTEMS: 12 point ROS reviewed with patient. Pertinent positives mentioned above. Otherwise negative. PHYSICAL EXAM: GENERAL: Alert, weak, awake oriented x 3 HEENT: EOMI, Sclera non icteric, moist mucosa NECK: Supple, no JVD, trachea midline LUNGS: Diminished breath sounds bilaterally. No wheezes HEART: Regular rate and rhythm. Normal S1 and S2, without murmurs ABD: Abdomen soft, nontender. Bowel sounds present EXT: No clubbing cyanosis or edema NEURO: Alert and oriented to person, follows commands Vital Signs (last 8hr) Date Time Temp Pulse Resp B/P (MAP) Pulse Ox O2 Delivery O2 Flow Rate FiO2 07/02/24 11:15 97.9 91 19 150/86 98 Room Air 07/02/24 10:59 88 20 07/02/24 10:50 99 Room Air* 0 21 07/02/24 07:46 97.5 84 19 143/95 99 Room Air 07/02/24 06:36 91 20 07/02/24 06:36 91 20 N/A Room Air 21 07/02/24 04:36 98.4 80 18 150/91 95 Room Air 21 LABS: Hematology Labs: Test 07/02/24 04:51 Range/Units White Blood Count 13.9 H 4.8-10.8 K/uL Red Blood Count 4.61 4.00-5.50 MIL/uL Hemoglobin 14.4 12.0-16.0 g/dL Hematocrit 43.6 36-48 % Mean Corpuscular Volume 94.6 79-99 fL Mean Corpuscular Hemoglobin 31.2 27.0-33.0 pg Mean Corpuscular Hemoglobin Concent 33.0 32.0-36.0 g/dL Red Cell Distribution Width 13.6 11.0-15.5 % Platelet Count 202 130-400 K/uL Mean Platelet Volume 10.5 7.5-10.5 fL Immature Granulocyte % (Auto) 1.7 H 0-1 % Neutrophils (%) (Auto) 86.7 H 40.0-77.0 % Lymphocytes (%) (Auto) 8.5 L 21.0-51.0 % Monocytes (%) (Auto) 2.7 L 3.0-13.0 % Eosinophils (%) (Auto) 0.1 0.0-8.0 % Basophils (%) (Auto) 0.3 0.0-5.0 % Neutrophils # (Auto) 12.0 H 1.8-7.7 K/uL Lymphocytes # (Auto) 1.2 1.0-4.8 K/uL Monocytes # (Auto) 0.4 0.1-1.0 K/uL Eosinophils # (Auto) 0.01 0.00-0.70 K/uL Basophils # (Auto) 0.04 0.00-0.20 K/uL Absolute Immature Granulocyte (auto 0.24 0-1 K/uL Nucleated Red Blood Cells 0.0 0.0-0.19 % Chemistry Labs: Test 07/02/24 04:51 07/01/24 05:24 Range/Units Sodium Level 143 136-145 mmol/L Potassium Level 3.7 3.5-5.1 mmol/L Chloride Level 107 101-111 mmol/L Carbon Dioxide Level 26 21-32 mmol/L Blood Urea Nitrogen 17 7-18 mg/dL Creatinine 0.8 0.5-1.0 mg/dL Glomerular Filtration Rate Calc 82 >90 mL/min Random Glucose 160 H 70-105 mg/dL Total Calcium 8.4 L 8.5-10.1 mg/dL Magnesium Level 2.10 1.80-2.40 mg/dL DIAGNOSTICS / RADIOLOGY RESULTS: [ ] PLAN The patient was admitted and Pulmonary Services was consulted for further as sistance and management. We will continue oxygen supplementation with nasal cannula and we will adjust as necessary. The patient is to continue on her steroid therapy with methylprednisolone 40 mg IV b.i.d. and we will continue on the bronchodilation. The patient is currently on duonebs, considering her history of AFib, I am going to discontinue the duo nebs and offer Atrovent. The patient is to continue on IV Rocephin as ordered and we will monitor the WBC trend and febrile curve. With regards to the concern for ROSSY, the patient will require a sleep study for diagnosis will be performed in the outpatient setting. We will replace the electrolyte deficit. We will monitor the patient's progress and response to management. We will continue provide general supportive care, GI and DVT prophylaxis. Further orders per attending MD and hospital course. Appreciate the opportunity provided to participate in patient's care we will remain available for any further needs. NEURO: Minimize central acting medications as possible. Maintain fall precautions, adequate lighting during the day PULMONARY: Supplemental 02 as needed. Maintain aspiration precautions at all times CARDIOVASCULAR: Follow hemodynamics. Vital signs per facility protocol GI & NUTRITION: Continue with nutritional support. Continue stool softeners and laxatives as needed. KIDNEYS & ELECTROLYTES: Strict monitoring of intake, output and overall fluid balance. Avoid nephrotoxic medications to the extent possible. Medications to be dosed according to renal function. Monitor electrolytes and replace as needed ENDOCRINE: Maintain blood glucose between 100-180 at all times. Hypoglycemia protocol in place INFECTIOUS DISEASE: Trend temperature, WBC and procalcitonin level Follow cultures, deescalate antibiotics as soon as possible. Panculture if new onset fever ONCOLOGY/HEMATOLOGY/COAGULATION: Monitor for s/s of bleeding Monitor hemoglobin, coagulation studies as needed SKIN: Pressure ulcer prevention per facility protocol Specialty mattress ORTHO/REHAB: Continue PT/OT Prophylaxis: Continue GI and DVT prophylaxis Code Status: Full Resuscitation Disposition: TBD Other: Total patient care time exceeds 35 minutes excluding all procedures. JUNIOR MURPHY Jul 02, 2024 11:25
[2024-07-02] MEDS: AZITHROMYCIN 500MG+NS 250ML 250 ML IVPB SCH (11:37)
--- NOTE | 2024-07-02 13:10 | PN ---
[facility] PROGRESS NOTE Date of Service: Jul 02, 2024 Time of Service: 13:07 SUBJECTIVE: 06/30 patient seen at bedside, no acute events overnight. She continues on nasal cannula, V/Q scan was ordered by mid-level on admission, her Wells score shows low probability of PE we will cancel at this time. Although she does have an elevated heart rate she has a history of AFib with RVR and she has not had dose of amiodarone, we will resume her home medication. We will hold albuterol two prevent exacerbating her atrial fibrillation, continue with ipratropium and budesonide. Further orders per pulmonology. TSH and free T4 ordered, they are within normal range. Cultures still pending, we will follow up 07/01 Pt seen at bedside, no acute events overnight. She still has prominent wheeze, continue with current care, nebulizer treatments, systemic steroids. Further care per pulmonology 07/02 Pt seen at bedside, no acute events overnight. Still with prominent expiratory wheeze, also complaining of worsening sore throat and cough. She is strep positive, will continue rocephin and add azithromycin. Further recommendations per pulmonology. REVIEW OF SYSTEMS 12 point review of systems negative unless noted in HPI PHYSICAL EXAM GENERAL APPEARANCE: The patient is awake, alert, and oriented, in no acute cardiopulmonary distress. NEUROLOGICAL: Cranial nerves II-XII grossly intact. Motor is 5/5 in bilateral upper and lower extremities proximal to distal. No sensory deficits. HEENT: Face is symmetric. Pupils are equal and reactive. Extraocular movements are intact. NECK: Supple. No JVD. No thyromegaly. No submental, submandibular, pre- /postauricular, occipital or supraclavicular lymphadenopathy. CHEST: Normal chest expansion. No Telemetry. LUNGS: expiratory wheezing to bilateral lung sharif per auscultation CARDIOVASCULAR: Tachycardic . S1 and S2 normal. No appreciable rubs, murmurs or gallops. ABDOMEN: Soft, nontender, and nondistended. There is no rebound, voluntary guarding, or rigidity. : Deferred. No Blue. EXTREMITIES: Non-edematous and not cyanotic. No clubbing. Good capillary refill. SKIN: No skin breakdown. Vital Signs (last 8hr) Date Time Temp Pulse Resp B/P (MAP) Pulse Ox O2 Delivery O2 Flow Rate FiO2 07/02/24 11:15 97.9 91 19 150/86 98 Room Air 07/02/24 10:59 88 20 07/02/24 10:50 99 Room Air* 0 21 07/02/24 07:46 97.5 84 19 143/95 99 Room Air 07/02/24 06:36 91 20 07/02/24 06:36 91 20 N/A Room Air 21 LABS: Laboratory: Test 07/02/24 04:51 07/01/24 05:24 Range/Units White Blood Count 13.9 H 4.8-10.8 K/uL Red Blood Count 4.61 4.00-5.50 MIL/uL Hemoglobin 14.4 12.0-16.0 g/dL Hematocrit 43.6 36-48 % Mean Corpuscular Volume 94.6 79-99 fL Mean Corpuscular Hemoglobin 31.2 27.0-33.0 pg Mean Corpuscular Hemoglobin Concent 33.0 32.0-36.0 g/dL Red Cell Distribution Width 13.6 11.0-15.5 % Platelet Count 202 130-400 K/uL Mean Platelet Volume 10.5 7.5-10.5 fL Immature Granulocyte % (Auto) 1.7 H 0-1 % Neutrophils (%) (Auto) 86.7 H 40.0-77.0 % Lymphocytes (%) (Auto) 8.5 L 21.0-51.0 % Monocytes (%) (Auto) 2.7 L 3.0-13.0 % Eosinophils (%) (Auto) 0.1 0.0-8.0 % Basophils (%) (Auto) 0.3 0.0-5.0 % Neutrophils # (Auto) 12.0 H 1.8-7.7 K/uL Lymphocytes # (Auto) 1.2 1.0-4.8 K/uL Monocytes # (Auto) 0.4 0.1-1.0 K/uL Eosinophils # (Auto) 0.01 0.00-0.70 K/uL Basophils # (Auto) 0.04 0.00-0.20 K/uL Absolute Immature Granulocyte (auto 0.24 0-1 K/uL Nucleated Red Blood Cells 0.0 0.0-0.19 % Sodium Level 143 136-145 mmol/L Potassium Level 3.7 3.5-5.1 mmol/L Chloride Level 107 101-111 mmol/L Carbon Dioxide Level 26 21-32 mmol/L Blood Urea Nitrogen 17 7-18 mg/dL Creatinine 0.8 0.5-1.0 mg/dL Glomerular Filtration Rate Calc 82 >90 mL/min Random Glucose 160 H 70-105 mg/dL Total Calcium 8.4 L 8.5-10.1 mg/dL Magnesium Level 2.10 1.80-2.40 mg/dL Current Medications Medications (Trade) Dose Ordered Sig/Hunter Route PRN Reason Start Time Stop Time Status Last Admin Dose Admin Acetaminophen (TYLenol 325MG TAB) 650 mg Q4H PRN PO MILD PAIN (1-3) 06/29/24 20:30 07/29/24 20:29 07/02/24 09:50 650 MG Acetaminophen (TYLenol 325MG TAB) 650 mg Q6H PRN PO TEMPERATURE GREATER THAN 101.5 06/29/24 20:30 07/29/24 20:29 06/30/24 12:09 650 MG Acetaminophen (TYLenol 500MG TAB) 1,000 mg ONCE PO 06/29/24 18:00 06/29/24 22:00 DC 06/29/24 19:17 1,000 MG Albuterol (DUOneb) 1 udvial [id number] IH 06/29/24 22:00 06/30/24 09:48 DC 06/30/24 07:27 1 UDVIAL Amiodarone HCl (pacERONE 200MG) 200 mg BID PO 06/30/24 21:00 06/30/24 10:49 DC Amiodarone HCl (pacERONE 200MG) 200 mg BID PO 06/30/24 21:00 07/30/24 20:59 07/02/24 09:47 200 MG Apixaban (EliquIS) 5 mg BID PO 06/30/24 09:00 07/30/24 08:59 07/02/24 09:47 5 MG Atorvastatin Calcium (LIPItor 40MG) 40 mg HS PO 06/30/24 21:00 07/30/24 20:59 07/01/24 20:07 40 MG Azithromycin 250 ml @ 250 mls/hr Q24H IVPB 07/02/24 09:30 07/12/24 09:29 07/02/24 11:37 250 MLS/HR Benzocaine (Cepacol Sore Throat Lozenge) 1 each Q4H PRN MM SORE THROAT 07/02/24 09:30 08/01/24 09:29 07/02/24 09:46 1 EACH Ceftriaxone Sodium (ROCEphine 1G INJ) 1 gm BID IV 06/29/24 21:00 06/29/24 21:02 DC Ceftriaxone Sodium (ROCEphine 1G INJ) 1 gm BID IV 06/30/24 09:00 07/10/24 08:59 07/02/24 09:46 1 GM Famotidine (Pepcid 20mg Tab) 20 mg DAILY PO 06/30/24 09:00 07/30/24 08:59 07/02/24 09:47 20 MG Guaifenesin/ Dextromethorphan (RobiTUSSin DM 200/20MG 10ML) 10 ml Q4H PRN PO COUGH 06/29/24 20:30 07/29/24 20:29 07/02/24 09:47 10 ML Ipratropium [place] (AtrovENT UD) 0.5 MG [id number] IH 06/30/24 12:00 07/30/24 11:59 07/02/24 10:57 0.5 MG Levothyroxine Sodium (SYNTHroid 150MCG TAB) 150 mcg SYN PO 06/30/24 06:30 07/30/24 06:29 07/02/24 06:17 150 MCG Losartan Potassium (CozAAR 50 mg TAB) 50 mg BID PO 06/30/24 09:00 07/30/24 08:59 07/02/24 09:48 50 MG Magnesium Sulfate 50 ml @ 0 mls/hr PROTOCOL IV 06/29/24 17:30 07/29/24 17:29 06/29/24 19:17 50 MLS/HR Methylprednisolone Sodium Succinate (Solu-medROL 40MG) 40 mg BID IVP 06/29/24 21:00 07/29/24 20:59 07/02/24 09:46 40 MG Metoprolol Tartrate (loprESSOR) 25 mg BID PO 06/30/24 09:00 07/30/24 08:59 07/02/24 09:47 25 MG Ondansetron HCl (zoFRAN 4MG INJ) 4 mg Q6H PRN IV NAUSEA/VOMITING 06/29/24 20:30 07/29/24 20:29 Potassium Chloride 100 ml @ 100 mls/hr AD PRN IV POTASSIUM PROTOCOL 06/30/24 09:30 07/30/24 09:29 Potassium Chloride (K-Dur/Klor-Con 20meq) 20 meq AD PRN PO POTASSIUM PROTOCOL 06/30/24 09:30 07/30/24 09:29 Potassium Chloride (KCl 10% Elixir 20meq/15ml) 20 meq AD PRN PO POTASSIUM PROTOCOL 06/30/24 09:30 07/30/24 09:29 07/01/24 17:19 20 MEQ Sodium Chloride 1,000 ml @ 75 mls/hr [id number] IV 06/29/24 20:30 07/29/24 20:29 06/30/24 14:22 75 MLS/HR DIAGNOSTICS / RADIOLOGY: [ ] ASSESSMENT: Acute respiratory failure without mechanical ventilation POA Acute asthma exacerbation POA Strep positive Acute kidney injury on CKD POA Hypokalemia POA Undiagnosed obstructive sleep apnea POA Morbid obesity POA Atrial fibrillation on Eliquis POA Hyperlipidemia POA Hypertension POA Hypothyroidism POA History of cardioversion and cardiac ablation POA PLAN: Continue heart healthy diet Continue Rocephin 1 g IV b.i.d. for empiric coverage Start azithromycin 500mg IV q24h Continue methylprednisolone 40 mg IV b.i.d. Continue Famotidine 20 mg p.o. daily for GI prophylaxis May continue oxygen supplementation to keep saturation between 88-92% Hold albuterol Continue ipratroprium and budesonide Cultures pending, will follow up Cancel V/Q scanb Pulmonology consulted, appreciate recommendations Disposition: Pending improvement in clinical status BENTON TORREZ MD Jul 02, 2024 13:10
--- NOTE | 2024-07-02 14:29 | NUR ---
DCP: home Pt currently lives with SPS Tyshawn Jerrod, pt did not want to give contact information for sps. Pt reported no DME or home health services. pt refused to answer information about home, half-way, or medical services. Pt only stated that she "had a doctor in [place]". At al pt wants to go home and sps will assist with transportation. Addendum: 07/02/24 at 1433 by DIDI ALDANA SS Amended: Links added.
--- NOTE | 2024-07-02 20:30 | NUR ---
MEDS SHIFT ASSESSMENT DONE, PLEASE REFER TO CHART. DUE MEDS ADMINISTERED,TOLERATED WELL. KEPT RESTED AND COMFORTABLE IN BED. CALL LIGHT WITHIN REACH.
[2024-07-03] VITALS (12 sets, daily range): BP systolic 143–162; BP diastolic 74–104; PULSE 74–99; RESP 17–20; TEMP 97.6–98.5; O2SAT 96–99
[2024-07-03 05:16] LABS: BASOPHILS # (AUTO) 0.06 K/uL (0.00-0.20); BASOPHILS % (AUTO) 0.6 % (0.0-5.0); HEMATOCRIT 44.6 % (36-48); IMMATURE GRANULOCYTE ABSOLUTE 0.47 K/uL (0-1); LYMPHOCYTES # (AUTO) 1.2 K/uL (1.0-4.8); LYMPHOCYTES % (AUTO) 11.8 % (21.0-51.0); MEAN CORPUSCULAR HEMOGLOBIN 30.7 pg (27.0-33.0); MEAN CORPUSCULAR HGB CONC 33.2 g/dL (32.0-36.0); MEAN CORPUSCULAR VOLUME 92.5 fL (79-99); MONOCYTES # (AUTO) 0.3 K/uL (0.1-1.0); NEUTROPHILS % (AUTO) 79.9 % (40.0-77.0); PLATELET COUNT (AUTO) 217 K/uL (130-400); RED BLOOD CELL COUNT(AUTO) 4.82 MIL/uL (4.00-5.50); RED CELL DISTRIBUTION WIDTH 13.2 % (11.0-15.5)
[2024-07-03 05:25] LABS: CREATININE 0.8 mg/dL (0.5-1.0); POTASSIUM 3.4 mmol/L (3.5-5.1)
[2024-07-03] MEDS: PoTASSium chloRIDE 20MEQ ER 20 MEQ ERTAB PO PRN (06:02)
--- NOTE | 2024-07-03 06:05 | NUR ---
MEDS PT JUST HAD HER SHOWER, TOLERATED ACTIVITY WELL. DUE MEDS ADMINISTERED, TOLERATED WELL. PLACED BACK ON IVF OF NS AT 75CC/HR. KEPT RESTED IN BED WITH HOB ELEVATED. CALL LIGHT WITHIN REACH. FOR MORE CARE.
--- NOTE | 2024-07-03 13:37 | PN ---
[facility] PROGRESS NOTE Date Patient Seen: Jul 03, 2024 Time of Visit: 13:29 Supervising Physician: Dr. Juan Miguel Farrell Primary Care Physician: Self-referred Outpatient Specialists: [ ] Inpatient Consults: [ ] PROBLEM LIST: Acute respiratory failure POA requiring oxygen supplementation, now on room air Acute asthma exacerbation, resolved Acute group a strep pharyngitis, treating Early pneumonia, treating, improved Sepsis from the above source, resolved Hypokalemia POA. Concern for undiagnosed ROSSY. Atrial fibrillation POA with recent history of cardioversion and cardiac ablation. Hyperlipidemia. Hypertension. Hypothyroidism. INTERVAL HISTORY: Patient evaluated at bedside today, she currently remains on room air, continues on Rocephin daily as well as Solu-Medrol 40 mg b.i.d.. Patient denies any respiratory distress or shortness of breath, no chest pain, nausea, vomiting. Patient has been tolerating her diet well. At this point pulmonary team has cleared the patient for discharge with the following recommendations, Medrol Dosepak for steroid taper as outpatient, Advair 250/50 b.i.d. to replace her current fluticasone propionate which can be discontinued. Patient can continue on her Breztri inhaler as well as albuterol as prescribed. Follow up in the [facility] as outpatient for continued outpatient management of her asthma. Plan Complete outpatient antibiotic regimen for a total of 7-10 days Discontinue fluticasone propionate home medication Discharged with Medrol Dosepak, Advair 250/50 b.i.d. Follow-up in the outpatient [facility] clinic for continued asthma maintenance REVIEW OF SYSTEMS: 12 point ROS reviewed with patient. Pertinent positives mentioned above. Otherwise negative. PHYSICAL EXAM: GENERAL: Alert, weak, awake oriented x 3 HEENT: EOMI, Sclera non icteric, moist mucosa NECK: Supple, no JVD, trachea midline LUNGS: Diminished breath sounds bilaterally. No wheezes HEART: Regular rate and rhythm. Normal S1 and S2, without murmurs ABD: Abdomen soft, nontender. Bowel sounds present EXT: No clubbing cyanosis or edema NEURO: Alert and oriented to person, follows commands Vital Signs (last 8hr) Date Time Temp Pulse Resp B/P (MAP) Pulse Ox O2 Delivery O2 Flow Rate FiO2 07/03/24 11:31 91 18 07/03/24 11:18 98.2 86 19 162/90 96 Room Air 07/03/24 08:34 96 Room Air* 0 21 07/03/24 07:42 98.2 97 19 143/79 96 Room Air 07/03/24 07:08 89 18 07/03/24 07:06 89 18 N/A Room Air 21 LABS: Hematology Labs: Test 07/03/24 04:56 Range/Units White Blood Count 10.0 4.8-10.8 K/uL Red Blood Count 4.82 4.00-5.50 MIL/uL Hemoglobin 14.8 12.0-16.0 g/dL Hematocrit 44.6 36-48 % Mean Corpuscular Volume 92.5 79-99 fL Mean Corpuscular Hemoglobin 30.7 27.0-33.0 pg Mean Corpuscular Hemoglobin Concent 33.2 32.0-36.0 g/dL Red Cell Distribution Width 13.2 11.0-15.5 % Platelet Count 217 130-400 K/uL Mean Platelet Volume 10.3 7.5-10.5 fL Immature Granulocyte % (Auto) 4.7 H 0-1 % Neutrophils (%) (Auto) 79.9 H 40.0-77.0 % Lymphocytes (%) (Auto) 11.8 L 21.0-51.0 % Monocytes (%) (Auto) 3.0 3.0-13.0 % Eosinophils (%) (Auto) 0.0 0.0-8.0 % Basophils (%) (Auto) 0.6 0.0-5.0 % Neutrophils # (Auto) 8.0 H 1.8-7.7 K/uL Lymphocytes # (Auto) 1.2 1.0-4.8 K/uL Monocytes # (Auto) 0.3 0.1-1.0 K/uL Eosinophils # (Auto) 0.00 0.00-0.70 K/uL Basophils # (Auto) 0.06 0.00-0.20 K/uL Absolute Immature Granulocyte (auto 0.47 0-1 K/uL Nucleated Red Blood Cells 0.0 0.0-0.19 % Chemistry Labs: Test 07/03/24 04:56 Range/Units Sodium Level 143 136-145 mmol/L Potassium Level 3.4 L 3.5-5.1 mmol/L Chloride Level 105 101-111 mmol/L Carbon Dioxide Level 27 21-32 mmol/L Blood Urea Nitrogen 11 7-18 mg/dL Creatinine 0.8 0.5-1.0 mg/dL Glomerular Filtration Rate Calc 82 >90 mL/min Random Glucose 193 H 70-105 mg/dL Total Calcium 8.4 L 8.5-10.1 mg/dL DIAGNOSTICS / RADIOLOGY RESULTS: [ ] PLAN The patient was admitted and Pulmonary Services was consulted for further assistance and management. We will continue oxygen supplementation with nasal cannula and we will adjust as necessary. The patient is to continue on her steroid therapy with methylprednisolone 40 mg IV b.i.d. and we will continue on the bronchodilation. The patient is currently on duonebs, considering her history of AFib, I am going to discontinue the duo nebs and offer Atrovent. The patient is to continue on IV Rocephin as ordered and we will monitor the WBC trend and febrile curve. With regards to the concern for ROSSY, the patient will require a sleep study for diagnosis will be performed in the outpatient setting. We will replace the electrolyte deficit. We will monitor the patient's progress and response to management. We will continue provide general supportive care, GI and DVT prophylaxis. Further orders per attending MD and hospital course. Appreciate the opportunity provided to participate in patient's care we will remain available for any further needs. NEURO: Minimize central acting medications as possible. Maintain fall precautions, adequate lighting during the day PULMONARY: Supplemental 02 as needed. Maintain aspiration precautions at all times CARDIOVASCULAR: Follow hemodynamics. Vital signs per facility protocol GI & NUTRITION: Continue with nutritional support. Continue stool softeners and laxatives as needed. KIDNEYS & ELECTROLYTES: Strict monitoring of intake, output and overall fluid balance. Avoid nephrotoxic medications to the extent possible. Medications to be dosed according to renal function. Monitor electrolytes and replace as needed ENDOCRINE: Maintain blood glucose between 100-180 at all times. Hypoglycemia protocol in place INFECTIOUS DISEASE: Trend temperature, WBC and procalcitonin level Follow cultures, deescalate antibiotics as soon as possible. Panculture if new onset fever ONCOLOGY/HEMATOLOGY/COAGULATION: Monitor for s/s of bleeding Monitor hemoglobin, coagulation studies as needed SKIN: Pressure ulcer prevention per facility protocol Specialty mattress ORTHO/REHAB: Continue PT/OT Prophylaxis: Continue GI and DVT prophylaxis Code Status: Full Resuscitation Disposition: TBD Other: Total patient care time exceeds 35 minutes excluding all procedures. JUNIOR MURPHY Jul 03, 2024 13:37
--- NOTE | 2024-07-03 19:39 | PN ---
[facility] PROGRESS NOTE Date of Service: Jul 03, 2024 Time of Service: 19:38 SUBJECTIVE: 06/30 patient seen at bedside, no acute events overnight. She continues on nasal cannula, V/Q scan was ordered by mid-level on admission, her Wells score shows low probability of PE we will cancel at this time. Although she does have an elevated heart rate she has a history of AFib with RVR and she has not had dose of amiodarone, we will resume her home medication. We will hold albuterol two prevent exacerbating her atrial fibrillation, continue with ipratropium and budesonide. Further orders per pulmonology. TSH and free T4 ordered, they are within normal range. Cultures still pending, we will follow up 07/01 Pt seen at bedside, no acute events overnight. She still has prominent wheeze, continue with current care, nebulizer treatments, systemic steroids. Further care per pulmonology 07/02 Pt seen at bedside, no acute events overnight. Still with prominent expiratory wheeze, also complaining of worsening sore throat and cough. She is strep positive, will continue rocephin and add azithromycin. Further recommendations per pulmonology. 07/03 patient seen at bedside, no acute events overnight. Patient is still with wheeze that is improving, she now has multiple mouth sores, we will start acyclovir and continue with empiric antibiotics. If patient continues to improve with breathing by tomorrow she will be good candidate for discharge home. REVIEW OF SYSTEMS 12 point review of systems negative unless noted in HPI PHYSICAL EXAM GENERAL APPEARANCE: The patient is awake, alert, and oriented, in no acute cardiopulmonary distress. NEUROLOGICAL: Cranial nerves II-XII grossly intact. Motor is 5/5 in bilateral upper and lower extremities proximal to distal. No sensory deficits. HEENT: Face is symmetric. Pupils are equal and reactive. Extraocular movements are intact. NECK: Supple. No JVD. No thyromegaly. No submental, submandibular, pre- /postauricular, occipital or supraclavicular lymphadenopathy. CHEST: Normal chest expansion. No Telemetry. LUNGS: expiratory wheezing to bilateral lung sharif per auscultation CARDIOVASCULAR: Tachycardic . S1 and S2 normal. No appreciable rubs, murmurs or gallops. ABDOMEN: Soft, nontender, and nondistended. There is no rebound, voluntary guarding, or rigidity. : Deferred. No Blue. EXTREMITIES: Non-edematous and not cyanotic. No clubbing. Good capillary refill. SKIN: No skin breakdown. Vital Signs (last 8hr) Date Time Temp Pulse Resp B/P (MAP) Pulse Ox O2 Delivery O2 Flow Rate FiO2 07/03/24 18:53 99 20 N/A Room Air 21 07/03/24 18:53 99 20 07/03/24 15:56 98.2 84 19 148/94 97 Room Air LABS: Laboratory: Test 07/03/24 04:56 Range/Units White Blood Count 10.0 4.8-10.8 K/uL Red Blood Count 4.82 4.00-5.50 MIL/uL Hemoglobin 14.8 12.0-16.0 g/dL Hematocrit 44.6 36-48 % Mean Corpuscular Volume 92.5 79-99 fL Mean Corpuscular Hemoglobin 30.7 27.0-33.0 pg Mean Corpuscular Hemoglobin Concent 33.2 32.0-36.0 g/dL Red Cell Distribution Width 13.2 11.0-15.5 % Platelet Count 217 130-400 K/uL Mean Platelet Volume 10.3 7.5-10.5 fL Immature Granulocyte % (Auto) 4.7 H 0-1 % Neutrophils (%) (Auto) 79.9 H 40.0-77.0 % Lymphocytes (%) (Auto) 11.8 L 21.0-51.0 % Monocytes (%) (Auto) 3.0 3.0-13.0 % Eosinophils (%) (Auto) 0.0 0.0-8.0 % Basophils (%) (Auto) 0.6 0.0-5.0 % Neutrophils # (Auto) 8.0 H 1.8-7.7 K/uL Lymphocytes # (Auto) 1.2 1.0-4.8 K/uL Monocytes # (Auto) 0.3 0.1-1.0 K/uL Eosinophils # (Auto) 0.00 0.00-0.70 K/uL Basophils # (Auto) 0.06 0.00-0.20 K/uL Absolute Immature Granulocyte (auto 0.47 0-1 K/uL Nucleated Red Blood Cells 0.0 0.0-0.19 % Sodium Level 143 136-145 mmol/L Potassium Level 3.4 L 3.5-5.1 mmol/L Chloride Level 105 101-111 mmol/L Carbon Dioxide Level 27 21-32 mmol/L Blood Urea Nitrogen 11 7-18 mg/dL Creatinine 0.8 0.5-1.0 mg/dL Glomerular Filtration Rate Calc 82 >90 mL/min Random Glucose 193 H 70-105 mg/dL Total Calcium 8.4 L 8.5-10.1 mg/dL Current Medications Medications (Trade) Dose Ordered Sig/Hunter Route PRN Reason Start Time Stop Time Status Last Admin Dose Admin Acetaminophen (TYLenol 325MG TAB) 650 mg Q4H PRN PO MILD PAIN (1-3) 06/29/24 20:30 07/29/24 20:29 07/02/24 09:50 650 MG Acetaminophen (TYLenol 325MG TAB) 650 mg Q6H PRN PO TEMPERATURE GREATER THAN 101.5 06/29/24 20:30 07/29/24 20:29 06/30/24 12:09 650 MG Acetaminophen (TYLenol 500MG TAB) 1,000 mg ONCE PO 06/29/24 18:00 06/29/24 22:00 DC 06/29/24 19:17 1,000 MG Albuterol (DUOneb) 1 udvial [id number] IH 06/29/24 22:00 06/30/24 09:48 DC 06/30/24 07:27 1 UDVIAL Amiodarone HCl (pacERONE 200MG) 200 mg BID PO 06/30/24 21:00 06/30/24 10:49 DC Amiodarone HCl (pacERONE 200MG) 200 mg BID PO 06/30/24 21:00 07/30/24 20:59 07/03/24 10:01 200 MG Apixaban (EliquIS) 5 mg BID PO 06/30/24 09:00 07/30/24 08:59 07/03/24 10:01 5 MG Atorvastatin Calcium (LIPItor 40MG) 40 mg HS PO 06/30/24 21:00 07/30/24 20:59 07/02/24 20:26 40 MG Azithromycin 250 ml @ 250 mls/hr Q24H IVPB 07/02/24 09:30 07/12/24 09:29 07/03/24 10:00 250 MLS/HR Benzocaine (Cepacol Sore Throat Lozenge) 1 each Q4H PRN MM SORE THROAT 07/02/24 09:30 08/01/24 09:29 07/02/24 20:26 1 EACH Ceftriaxone Sodium (ROCEphine 1G INJ) 1 gm BID IV 06/29/24 21:00 06/29/24 21:02 DC Ceftriaxone Sodium (ROCEphine 1G INJ) 1 gm BID IV 06/30/24 09:00 07/10/24 08:59 07/03/24 10:00 1 GM Famotidine (Pepcid 20mg Tab) 20 mg DAILY PO 06/30/24 09:00 07/30/24 08:59 07/03/24 10:01 20 MG Guaifenesin/ Dextromethorphan (RobiTUSSin DM 200/20MG 10ML) 10 ml Q4H PRN PO COUGH 06/29/24 20:30 07/29/24 20:29 07/02/24 20:26 10 ML Ipratropium [place] (AtrovENT UD) 0.5 MG [id number] IH 06/30/24 12:00 07/30/24 11:59 07/03/24 18:53 0.5 MG Levothyroxine Sodium (SYNTHroid 150MCG TAB) 150 mcg SYN PO 06/30/24 06:30 07/30/24 06:29 07/03/24 06:01 150 MCG Losartan Potassium (CozAAR 50 mg TAB) 50 mg BID PO 06/30/24 09:00 07/30/24 08:59 07/03/24 10:01 50 MG Magnesium Sulfate 50 ml @ 0 mls/hr PROTOCOL IV 06/29/24 17:30 07/29/24 17:29 06/29/24 19:17 50 MLS/HR Methylprednisolone Sodium Succinate (Solu-medROL 40MG) 40 mg BID IVP 06/29/24 21:00 07/29/24 20:59 07/03/24 09:59 40 MG Metoprolol Tartrate (loprESSOR) 25 mg BID PO 06/30/24 09:00 07/30/24 08:59 07/03/24 10:01 25 MG Ondansetron HCl (zoFRAN 4MG INJ) 4 mg Q6H PRN IV NAUSEA/VOMITING 06/29/24 20:30 07/29/24 20:29 Potassium Chloride 100 ml @ 100 mls/hr AD PRN IV POTASSIUM PROTOCOL 06/30/24 09:30 07/30/24 09:29 Potassium Chloride (K-Dur/Klor-Con 20meq) 20 meq AD PRN PO POTASSIUM PROTOCOL 06/30/24 09:30 07/30/24 09:29 07/03/24 06:02 20 MEQ Potassium Chloride (KCl 10% Elixir 20meq/15ml) 20 meq AD PRN PO POTASSIUM PROTOCOL 06/30/24 09:30 07/30/24 09:29 07/03/24 10:00 20 MEQ Sodium Chloride 1,000 ml @ 75 mls/hr [id number] IV 06/29/24 20:30 07/29/24 20:29 07/03/24 00:02 75 MLS/HR DIAGNOSTICS / RADIOLOGY: [ ] ASSESSMENT: Acute respiratory failure without mechanical ventilation POA Acute asthma exacerbation POA Strep positive Acute kidney injury on CKD POA Hypokalemia POA Undiagnosed obstructive sleep apnea POA Morbid obesity POA Atrial fibrillation on Eliquis POA Hyperlipidemia POA Hypertension POA Hypothyroidism POA History of cardioversion and cardiac ablation POA PLAN: Continue heart healthy diet Continue Rocephin 1 g IV b.i.d. for empiric coverage Start azithromycin 500mg IV q24h Continue methylprednisolone 40 mg IV b.i.d. Continue Famotidine 20 mg p.o. daily for GI prophylaxis May continue oxygen supplementation to keep saturation between 88-92% Hold albuterol Continue ipratroprium and budesonide Cultures pending, will follow up Cancel V/Q scanb Pulmonology consulted, appreciate recommendations Disposition: Pending improvement in clinical status BENTON TORREZ MD Jul 03, 2024 19:39
[2024-07-04] VITALS (9 sets, daily range): BP systolic 131–154; BP diastolic 95–110; PULSE 66–95; RESP 18–20; TEMP 97.7–98.1; O2SAT 97–98
[2024-07-04] MEDS ORDERED: PRED20TA3 PO (15:56)
[2024-07-04] MEDS ORDERED: ADV250 IH (15:56)
--- NOTE | 2024-07-04 16:06 | DS ---
Discharge Summary Hospital Course Summary: 64-year-old female with past medical history of atrial flutter/atrial fibrillation on Eliquis, hypothyroidism, morbid obesity, undiagnosed obstructive sleep apnea, hypertension, hyperlipidemia and chronic kidney disease who was sent by her PCP for multiple complaints such as headache started four days ago followed by a sore throat , body aches and shortness of breaths which started three days ago and have progressively got worse today ,then seek medical help. Upon arrival to ER patient's vital signs temperature of 102.6, heart rate 119, respiration 20, blood pressure 136/95 saturation 94% on room air. While in the ER patient was given fluid resuscitation of NS 30 mL/kilogram over 3 hours, Solu-Medrol 125 mg IV, magnesium sulfate IV, Rocephin 2 g IV and neb treatment. An EKG was done and result revealed atrial flutter with product predominant two-to-one AV block heart rate 113. She had a notable wheeze, she was admitted, started on empiric antibiotics, nebulizer treatments, systemic steroids and supplemental O2. Pulmonology was consulted. Daily peak flows were ordered and were decreased. By hospital day 5 her wheezing had resolved and she was back on room air. Her home respiratory medications were adjusted by pulmonology and she was cleared for discharge back home. . Chemistry Quality Control Analyst(s): Pulmonology Procedure(s): Echocardiogram: Conclusion The left ventricle is normal size. LVEF is 50-55% with normal LV segmental wall motion. Indeterminate diastolic dysfunction. The right ventricular systolic function is normal. The left atrium is moderately dilated. No hemodynamically significant valvular abnormalities. There is no pericardial effusion. PORTABLE CHEST RADIOGRAPH INDICATION: sob COMPARISON: 04/12/2024 FINDINGS: Heart size is normal. The pulmonary vascularity and salbadro appear normal. No abnormal pulmonary parenchymal opacity or consolidation identified. No significant pleural effusion noted. No pneumothorax detected. IMPRESSION: No radiographic evidence for any acute cardiopulmonary process. Assessment/Plan: Acute respiratory failure without mechanical ventilation POA Acute asthma exacerbation POA Strep positive Acute kidney injury on CKD POA Hypokalemia POA Undiagnosed obstructive sleep apnea POA Morbid obesity POA Atrial fibrillation on Eliquis POA Hyperlipidemia POA Hypertension POA Hypothyroidism POA History of cardioversion and cardiac ablation POA Discharge Instructions: Follow up with PCP in 3-7 days Follow up with statistical programmer analyst in 1-2 weeks Home Medications: Active Scripts Losartan Potassium (Losartan Potassium) 50 Mg Tablet, 1 TAB PO BID for 30 Days, #30 TAB 0 Refills Prov:RANI ESQUEDA MD 04/12/24 Metoprolol Tartrate (Lopressor) 25 Mg Tab, 25 MG PO BID, #60 TAB 0 Refills Prov:BENTON TORREZ MD 03/22/24 Atorvastatin Calcium (LIPITOR) 40 Mg Tablet, 40 MG PO HS, #30 TAB 0 Refills Prov:BENTON TORREZ MD 03/22/24 Apixaban (Eliquis) 5 Mg Tablet, 5 MG PO BID, #60 TAB 0 Refills Prov:BENTON TORREZ MD 03/22/24 Reported Medications Azelastine HCl (Azelastine HCl) 137 Mcg (0.1 %) [place].pump, 2 SPRAY NS BID for 30 Days, #30 ML 0 Refills 06/30/24 Fluticasone Propionate (Fluticasone Propionate) 50 Mcg/Actuation [place].susp, 2 SPRAY NS DAILY, #16 GM 0 Refills 06/30/24 Budesonide/Glycopyr/Formoterol (Breztri Aerosphere Inhaler) 160 Mcg-9 Mcg-4.8 Mcg/Actuation Hfa.aer.ad, 2 PUFF IH BID for 30 Days, #10.7 GM 0 Refills 06/30/24 Doxycycline Hyclate (Doxycycline Hyclate) 100 Mg Tablet, 1 TAB PO BID for 10 Days, #20 TAB 0 Refills 06/30/24 Levothyroxine Sodium (Synthroid) 175 Mcg Tablet, 1 TAB PO DAILY for 30 Days, #30 TAB 0 Refills 06/30/24 Metoprolol Tartrate (Metoprolol Tartrate) 50 Mg Tablet, 1 TAB PO BID for 30 Days, #60 TAB 0 Refills 06/30/24 Clonidine HCl (Clonidine HCl) 0.1 Mg Tablet, 1 TAB PO DAILY for 30 Days, #30 TAB 0 Refills 06/30/24 Losartan Potassium (Losartan Potassium) 100 Mg Tablet, 1 TAB PO DAILY for 30 Days, #30 TAB 0 Refills 06/30/24 Amiodarone HCl (Amiodarone HCl) 200 Mg Tablet, 1 TAB PO BID for 30 Days, #30 TAB 0 Refills 06/30/24 Albuterol Sulfate (Ventolin Hfa) 90 Mcg Hfa.aer.ad, 2 PUFF IH Q4HPRN PRN for wheezing for 30 Days, #18 GM 0 Refills 03/19/24 Furosemide (Furosemide) 20 Mg Tablet, 1 TAB PO DAILY 08/20/22 Topiramate (Topiramate ER) 50 Mg Cap.spr.24, 50 MG PO BID, CAP 08/14/21 Discontinued Scripts Levothyroxine Sodium (Synthroid) 150 Mcg Tablet, 150 MCG PO DAILY, #30 TAB 0 Refills Prov:BENTON TORREZ MD 03/22/24 New Medications: Fluticasone/Salmeterol (Advair 250-50 Diskus) 14 Inh/Disk Inh 1 PUFF IH BID for 30 Days, #1 EACH 0 Refills Prednisone (Prednisone) 20 Mg Tablet 40 MG PO DAILY, #14 TAB Continued Medications: Albuterol Sulfate (Ventolin Hfa) 90 Mcg Hfa.aer.ad 2 PUFF IH Q4HPRN PRN for wheezing for 30 Days, #18 GM 0 Refills Amiodarone HCl (Amiodarone HCl) 200 Mg Tablet 1 TAB PO BID for 30 Days, #30 TAB 0 Refills Apixaban (Eliquis) 5 Mg Tablet 5 MG PO BID, #60 TAB 0 Refills Atorvastatin Calcium (Lipitor) 40 Mg Tablet 40 MG PO HS, #30 TAB 0 Refills Azelastine HCl (Azelastine HCl) 137 Mcg (0.1 %) [place].pump 2 SPRAY NS BID for 30 Days, #30 ML 0 Refills Budesonide/Glycopyr/Formoterol (Breztri Aerosphere Inhaler) 160 Mcg-9 Mcg-4.8 Mcg/Actuation Hfa.aer.ad 2 PUFF IH BID for 30 Days, #10.7 GM 0 Refills Furosemide (Furosemide) 20 Mg Tablet 1 TAB PO DAILY Losartan Potassium (Losartan Potassium) 50 Mg Tablet 1 TAB PO BID for 30 Days, #30 TAB 0 Refills Losartan Potassium (Losartan Potassium) 100 Mg Tablet 1 TAB PO DAILY for 30 Days, #30 TAB 0 Refills Metoprolol Tartrate (Lopressor) 25 Mg Tab 25 MG PO BID, #60 TAB 0 Refills Topiramate (Topiramate ER) 50 Mg Cap.spr.24 50 MG PO BID, CAP Discontinued Medications: Clonidine HCl (Clonidine HCl) 0.1 Mg Tablet 1 TAB PO DAILY for 30 Days, #30 TAB 0 Refills Doxycycline Hyclate (Doxycycline Hyclate) 100 Mg Tablet 1 TAB PO BID for 10 Days, #20 TAB 0 Refills Fluticasone Propionate (Fluticasone Propionate) 50 Mcg/Actuation [place].susp 2 SPRAY NS DAILY, #16 GM 0 Refills Levothyroxine Sodium (Synthroid) 175 Mcg Tablet 1 TAB PO DAILY for 30 Days, #30 TAB 0 Refills Metoprolol Tartrate (Metoprolol Tartrate) 50 Mg Tablet 1 TAB PO BID for 30 Days, #60 TAB 0 Refills BENTON TORREZ MD Jul 04, 2024 16:06
--- NOTE | 2024-07-04 17:32 | NUR ---
Discharge instructions are given and explained. PIV is removed. All belongings are packed up by the patient. She is taken downstairs by wheelchair and lef tion POV.
--- NOTE | 2024-07-04 23:04 | PN ---
[facility] PROGRESS NOTE Date Patient Seen: Jul 04, 2024 Time of Visit: 23:02 Supervising Physician: MAIA MICHAEL MD Primary Care Physician: Self-referred Outpatient Specialists: [ ] Inpatient Consults: [ ] PROBLEM LIST: Acute respiratory failure POA requiring oxygen supplementation, now on room air Acute asthma exacerbation, resolved Acute group a strep pharyngitis, treating Early pneumonia, treating, improved Sepsis from the above source, resolved Hypokalemia POA. Concern for undiagnosed ROSSY. Atrial fibrillation POA with recent history of cardioversion and cardiac ablation. Hyperlipidemia. Hypertension. Hypothyroidism. INTERVAL HISTORY: Patient is better Now on room air no distress afebrile, well hydrated denies chest pain denies palpitations good appetite REVIEW OF SYSTEMS: 12 point ROS reviewed with patient. Pertinent positives mentioned above. Otherwise negative. PHYSICAL EXAM: GENERAL: Alert, weak, awake oriented x 3 HEENT: EOMI, Sclera non icteric, moist mucosa NECK: Supple, no JVD, trachea midline LUNGS: Diminished breath sounds bilaterally. No wheezes HEART: Regular rate and rhythm. Normal S1 and S2, without murmurs ABD: Abdomen soft, nontender. Bowel sounds present EXT: No clubbing cyanosis or edema NEURO: Alert and oriented to person, follows commands Vital Signs (last 8hr) Date Time Temp Pulse Resp B/P (MAP) Pulse Ox O2 Delivery O2 Flow Rate FiO2 07/04/24 16:00 98.1 66 18 152/102 94 Room Air LABS: Hematology Labs: Test 07/03/24 04:56 Range/Units White Blood Count 10.0 4.8-10.8 K/uL Red Blood Count 4.82 4.00-5.50 MIL/uL Hemoglobin 14.8 12.0-16.0 g/dL Hematocrit 44.6 36-48 % Mean Corpuscular Volume 92.5 79-99 fL Mean Corpuscular Hemoglobin 30.7 27.0-33.0 pg Mean Corpuscular Hemoglobin Concent 33.2 32.0-36.0 g/dL Red Cell Distribution Width 13.2 11.0-15.5 % Platelet Count 217 130-400 K/uL Mean Platelet Volume 10.3 7.5-10.5 fL Immature Granulocyte % (Auto) 4.7 H 0-1 % Neutrophils (%) (Auto) 79.9 H 40.0-77.0 % Lymphocytes (%) (Auto) 11.8 L 21.0-51.0 % Monocytes (%) (Auto) 3.0 3.0-13.0 % Eosinophils (%) (Auto) 0.0 0.0-8.0 % Basophils (%) (Auto) 0.6 0.0-5.0 % Neutrophils # (Auto) 8.0 H 1.8-7.7 K/uL Lymphocytes # (Auto) 1.2 1.0-4.8 K/uL Monocytes # (Auto) 0.3 0.1-1.0 K/uL Eosinophils # (Auto) 0.00 0.00-0.70 K/uL Basophils # (Auto) 0.06 0.00-0.20 K/uL Absolute Immature Granulocyte (auto 0.47 0-1 K/uL Nucleated Red Blood Cells 0.0 0.0-0.19 % Chemistry Labs: Test 07/03/24 04:56 Range/Units Sodium Level 143 136-145 mmol/L Potassium Level 3.4 L 3.5-5.1 mmol/L Chloride Level 105 101-111 mmol/L Carbon Dioxide Level 27 21-32 mmol/L Blood Urea Nitrogen 11 7-18 mg/dL Creatinine 0.8 0.5-1.0 mg/dL Glomerular Filtration Rate Calc 82 >90 mL/min Random Glucose 193 H 70-105 mg/dL Total Calcium 8.4 L 8.5-10.1 mg/dL DIAGNOSTICS / RADIOLOGY RESULTS: [ ] PLAN No contraindication from pulmonary standpoint for safe discharge from hospital NEURO: Minimize central acting medications as possible. Maintain fall precautions, adequate lighting during the day PULMONARY: Supplemental 02 as needed. Maintain aspiration precautions at all times CARDIOVASCULAR: Follow hemodynamics. Vital signs per facility protocol GI & NUTRITION: Continue with nutritional support. Continue stool softeners and laxatives as needed. KIDNEYS & ELECTROLYTES: Strict monitoring of intake, output and overall fluid balance. Avoid nephrotoxic medications to the extent possible. Medications to be dosed according to renal function. Monitor electrolytes and replace as needed ENDOCRINE: Maintain blood glucose between 100-180 at all times. Hypoglycemia protocol in place INFECTIOUS DISEASE: Trend temperature, WBC and procalcitonin level Follow cultures, deescalate antibiotics as soon as possible. Panculture if new onset fever ONCOLOGY/HEMATOLOGY/COAGULATION: Monitor for s/s of bleeding Monitor hemoglobin, coagulation studies as needed SKIN: Pressure ulcer prevention per facility protocol Specialty mattress ORTHO/REHAB: Continue PT/OT Prophylaxis: Continue GI and DVT prophylaxis Code Status: Full Resuscitation Disposition: As per PCP I personally scribed for MAIA MICHAEL MD ([email or web address]) on 07/04/24 at 23:04. Electronically submitted by Kwabena Wall ([email or web address]). MAIA MICHAEL MD Jul 04, 2024 23:04
== END 2024-07-04 17:30 | disposition home or self-care (01) | DRG 871 ==
LOC: EDH 17:12 → EDHIP 17:13 → UNDOADMIN 19:13 → 3CH 06-30 14:40
PROVIDERS: ADMIT Internal Medicine; ATTEND Internal Medicine
DX: A41.9 Sepsis, unspecified organism (principal); J18.9 Pneumonia, unspecified organism; J96.00 Acute respiratory failure, unspecified whether with hypoxia or hypercapnia; J45.901 Unspecified asthma with (acute) exacerbation; N17.9 Acute kidney failure, unspecified; I48.92 Unspecified atrial flutter; Z68.42 Body mass index [BMI] 45.0-49.9, adult; Z20.822 Contact with and (suspected) exposure to COVID-19; E03.9 Hypothyroidism, unspecified; E11.22 Type 2 diabetes mellitus with diabetic chronic kidney disease; E66.01 Morbid (severe) obesity due to excess calories; E78.5 Hyperlipidemia, unspecified; E87.6 Hypokalemia; I12.9 Hypertensive chronic kidney disease with stage 1 through stage 4 chronic kidney disease, or unspecified chronic kidney disease; I48.91 Unspecified atrial fibrillation; J02.0 Streptococcal pharyngitis; N18.9 Chronic kidney disease, unspecified; I25.10 Atherosclerotic heart disease of native coronary artery without angina pectoris; I44.30 Unspecified atrioventricular block; I45.10 Unspecified right bundle-branch block; Z82.49 Family history of ischemic heart disease and other diseases of the circulatory system; Z79.01 Long term (current) use of anticoagulants; Z79.899 Other long term (current) drug therapy
CPT/HCPCS: 36415; 71045; 80048; 80053; 81001; 82550; 83605; 83735; 83880; 84145; 84439; 84443; 84484; 85025; 85378; 85651; 87040; 87635; 87804; 87880; 93005; 93306; 93356; 94640; 94664; 96365; 96366; 96368; 96375; 99285; G0378; J0456; J0696; J2919; J3475; J7030

== ENCOUNTER 2024-07-19 06:19 | Observation (INO) | payer SELFPAY ==
[~2024-07-19] VITALS: Ht 162.6 cm; Wt 132.4 kg
[~2024-07-19 06:19] MED LIST changes: +ADV250 IH; +AMIO200T68 PO; +AZEL137S11 NS; +BUDE10.7 IH; -LEVO150T6 PO; +LOSA100T59 PO; +PRED20TA3 PO
--- NOTE | 2024-07-19 06:59 | ERN ---
General Chief Complaint: Palpitations Stated Complaint: C/O PALPITATIONS WITH SOB, DIZZINESS Time Seen by MD: 06:55 Source: patient History of Present Illness Initial Comments Patient is a 64-year-old female with known history of atrial fibrillation and shortness of breath. She has had shortness of breath and fibrillation over the last day and called her peanut roaster Dr. Pradhan she come into the emergency room if these two conditions got worse. She states she did not sleep at all last night and she does feel like her palpitations and shortness of breath are worse and so she came to the emergency room to be evaluated. She reports no other systemic symptoms no upper respiratory tract infection no change in urination or defecation no chest pain. Allergies: Coded Allergies: No Known Allergies (Verified Allergy, Unknown, 08/14/21) Home Meds Active Scripts Fluticasone/Salmeterol (ADVAIR 250-50 DISKUS) 14 Inh/Disk Inh, 1 PUFF IH BID for 30 Days, #1 EACH 0 Refills Prov:BENTON TORREZ MD 07/04/24 Prednisone (Prednisone) 20 Mg Tablet, 40 MG PO DAILY, #14 TAB Prov:BENTON TORREZ MD 07/04/24 Losartan Potassium (Losartan Potassium) 50 Mg Tablet, 1 TAB PO BID for 30 Days, #30 TAB 0 Refills Prov:RANI ESQEUDA MD 04/12/24 Metoprolol Tartrate (Lopressor) 25 Mg Tab, 25 MG PO BID, #60 TAB 0 Refills Prov:BENTON TORREZ MD 03/22/24 Atorvastatin Calcium (LIPITOR) 40 Mg Tablet, 40 MG PO HS, #30 TAB 0 Refills Prov:BENTON TORREZ MD 03/22/24 Apixaban (Eliquis) 5 Mg Tablet, 5 MG PO BID, #60 TAB 0 Refills Prov:BENTON TORREZ MD 03/22/24 Reported Medications Levothyroxine Sodium (Levothyroxine) 175 Mcg Capsule, 1 CAP PO DAILY for 30 Days, #30 CAP 0 Refills 07/19/24 Metoprolol Tartrate (Metoprolol Tartrate) 50 Mg Tablet, 1 TAB PO TID for 30 Days, #60 TAB 0 Refills 07/19/24 Azelastine HCl (Azelastine HCl) 137 Mcg (0.1 %) [place].pump, 2 SPRAY NS BID for 30 Days, #30 ML 0 Refills 06/30/24 Budesonide/Glycopyr/Formoterol (Breztri Aerosphere Inhaler) 160 Mcg-9 Mcg-4.8 Mcg/Actuation Hfa.aer.ad, 2 PUFF IH BID for 30 Days, #10.7 GM 0 Refills 06/30/24 Losartan Potassium (Losartan Potassium) 100 Mg Tablet, 1 TAB PO DAILY for 30 Days, #30 TAB 0 Refills 06/30/24 Amiodarone HCl (Amiodarone HCl) 200 Mg Tablet, 1 TAB PO BID for 30 Days, #30 TAB 0 Refills 06/30/24 Albuterol Sulfate (Ventolin Hfa) 90 Mcg Hfa.aer.ad, 2 PUFF IH Q4HPRN PRN for wheezing for 30 Days, #18 GM 0 Refills 03/19/24 Furosemide (Furosemide) 20 Mg Tablet, 1 TAB PO DAILY 08/20/22 Topiramate (Topiramate ER) 50 Mg Cap.spr.24, 50 MG PO BID, CAP 08/14/21 Past Medical History Past Medical History: A-Fib, High Cholesterol, Heart Disease, Hypertension, Hypothyroid Medical History Other: CARDIOVERSION Past Surgical History: None Surgical History Other: CARDIAC ABLATION Social History Social History: Negative Female( History) History: Not Applicable Constitutional: (-) chills, (-) diaphoresis, (-) fever, (-) malaise, (-) weakness, (-) other documentation EENTM: (-) eye pain, (-) blurred vision, (-) tearing, (-) double vision, (-) ear pain, (-) ear discharge, (-) nose pain, (-) nose congestion, (-) throat pain, (-) Throat swelling, (-) mouth pain, (-) tooth pain, (-) mouth swelling, (-) other documentation Respiratory: (+) short of breath; (-) cough, (-) orthopnea, (-) stridor, (-) wheezing, (-) other documentation Cardiovascular: (-) chest pain, (-) edema, (-) palpitations, (-) syncope, (-) dyspnea on exertion, (-) other documentation Gastrointestinal/Abdominal: (-) nausea, (-) vomiting, (-) diarrhea, (-) abdominal pain, (-) abdominal distention, (-) constipation, (-) rectal bleeding, (-) dark stool/melena, (-) other documentation Musculoskeletal: (-) Neck pain, (-) back pain, (-) Flank Pain, (-) joint pain, (-) joint swelling, (-) muscle pain, (-) muscle stiffness, (-) gout, (-) other documentation Physical Exam General Appearance: (+) mild distress Orientation: (+) alert, (+) oriented x 3 Head/Face Trauma: No Eye: bilateral eye normal inspection, bilateral eye PERRL, bilateral eye EOMI Ear, Nose, Throat: (+) hearing grossly normal, (+) normal ENT inspection, (+) moist mucous membraine Neck: (+) normal inspection, (+) supple, (+) full range of motion Respiratory: (+) chest non-tender, (+) lungs clear, (+) well ventilated Heart: (+) no gallop, (+) irregular; (-) regular, (-) murmur, (-) bradycardia, (-) tachycardia, (-) systolic murmur, (-) diastolic murmur, (-) extra beats, (-) friction rub, (-) gallop/S3, (-) gallop/S4, (-) other documentation Vascular: (+) no edema Gastrointestinal: (+) soft, (+) non-tender, (+) bowel sound present Results Laboratory and Microbiology Lab and Micro Result Laboratory Tests Test 07/19/24 07:11 07/19/24 09:40 White Blood Count 5.3 K/uL (4.8-10.8) Red Blood Count 4.84 MIL/uL (4.00-5.50) Hemoglobin 15.3 g/dL (12.0-16.0) Hematocrit 45.7 % (36-48) Mean Corpuscular Volume 94.4 fL (79-99) Mean Corpuscular Hemoglobin 31.6 pg (27.0-33.0) Mean Corpuscular Hemoglobin Concent 33.5 g/dL (32.0-36.0) Red Cell Distribution Width 13.4 % (11.0-15.5) Platelet Count 164 K/uL (130-400) Mean Platelet Volume 10.4 fL (7.5-10.5) Immature Granulocyte % (Auto) 0.9 % (0-1) Neutrophils (%) (Auto) 56.5 % (40.0-77.0) Lymphocytes (%) (Auto) 31.3 % (21.0-51.0) Monocytes (%) (Auto) 7.5 % (3.0-13.0) Eosinophils (%) (Auto) 3.0 % (0.0-8.0) Basophils (%) (Auto) 0.8 % (0.0-5.0) Neutrophils # (Auto) 3.0 K/uL (1.8-7.7) Lymphocytes # (Auto) 1.7 K/uL (1.0-4.8) Monocytes # (Auto) 0.4 K/uL (0.1-1.0) Eosinophils # (Auto) 0.16 K/uL (0.00-0.70) Basophils # (Auto) 0.04 K/uL (0.00-0.20) Absolute Immature Granulocyte (auto 0.05 K/uL (0-1) Nucleated Red Blood Cells 0.0 % (0.0-0.19) Sodium Level 141 mmol/L (136-145) Potassium Level 2.8 mmol/L (3.5-5.1) *L Chloride Level 108 mmol/L (101-111) Carbon Dioxide Level 27 mmol/L (21-32) Blood Urea Nitrogen 21 mg/dL (7-18) H Creatinine 1.0 mg/dL (0.5-1.0) Glomerular Filtration Rate Calc 63 mL/min (>90) Random Glucose 109 mg/dL (70-105) H Total Calcium 8.4 mg/dL (8.5-10.1) L Total Creatine Kinase 125 U/L (21-232) # Troponin I High Sensitivity 34 ng/L (4-50) B-Type Natriuretic Peptide 30 pg/mL (0-100) Urine Color YELLOW (YELLOW) Urine Appearance CLEAR (CLEAR) Urine pH 6.0 (5.0-8.0) Urine Specific [place] 1.028 (1.001-1.031) Urine Protein 10 mg/dL (NEGATIVE) H Urine Glucose (UA) NEGATIVE mg/dL (NEGATIVE) Urine Ketones NEGATIVE mg/dL (NEGATIVE) Urine Occult Blood NEGATIVE (NEGATIVE) Urine Nitrate NEGATIVE (NEGATIVE) Urine Bilirubin NEGATIVE mg/dL (NEGATIVE) Urine Urobilinogen 2.0 mg/dL (0.2-1.0) H Urine Leukocyte Esterase NEGATIVE Tabitha/uL Urine RBC 11-25 /HPF (0-1) H Urine WBC 2-5 /HPF (0-1) H Urine Squamous Epithelial Cells RARE /HPF (0-2) Urine Bacteria RARE /HPF (None Seen) Labs Reviewed?: Yes EKG/XRAY/US/CT/MRI EKG Comment Stat EKG shows atrial flutter with two-to-one AV block right bundle branch block left anterior fascicle block left ventricular hypertrophy with nonspecific T- wave abnormalities in the lateral leads as well as mild minimal ST-elevation in one aVL V5 and V6. These EKG changes are exactly identical to an EKG from 06/29/2024[place] [id number] IMAGING REPORT Signed PATIENT: PATTI MOELLER MR#: [id number] : 1960 SEX: F AGE: 64 LOCATION: [facility] ORDER 5 STATUS: [facility] REPORT#: [id number] SERVICE 5 REASON: CHEST PAIN ORDERING PHYSICIAN: MALIK BLOOM MD PROCEDURE: CXR1VW - CHEST 1VW Exam Type: CHEST 1VW Clinical Information: CHEST PAIN Comparison: None Findings: The lungs are clear of infiltrates. The heart is enlarged. Bony and soft tissue structures of the chest wall are unremarkable. IMPRESSION: Cardiomegaly. Clear lungs. DICTATED BY: KEDAR العلي MD DATE: 07/19/24914 ELECTRONICALLY SIGNED BY: KEDAR العلي MD DATE: 07/19/24916 [facility] Stat EKG shows atrial flutter with two-to-one AV block right bundle branch block left anterior fascicle block left ventricular hypertrophy with nonspecific T- wave abnormalities in the lateral leads as well as mild minimal ST-elevation in one aVL V5 and V6. These EKG changes are exactly identical to an EKG from 06/29/2024. We will do cardiac enzymes and BNP on this patient but I will not call an ST elevation [place] alert on this patient as the EKG changes are not new. MDM: DIFFERENTIAL DIAGNOSIS: ATRIAL FLUTTER, ATRIAL FIBRILLATION, RATIONALE: TESTS CONSIDERED AND ORDERED SECONDARY TO SHARED DECISION MAKING INCLUDE: LABS, ECG AND RADIOLOGY PREVIOUS OUTSIDE RECORDS REVIEWED: OLD ER VISITS. RISK OF COMPLICATION AND/OR MORBIDITY OR MORTALITY OF PATIENT MANAGEMENT: NONE MEDICATIONS-PER MEDICATION RECONCILIATION NEED FOR HOSPITALIZATION: PATIENT DOES MEET CRITERIA FOR HOSPITALIZATION. NEED FOR EMERGENCY MAJOR/MINOR SURGERY: NO THERE ARE NO SOCIAL CONCERNS WITH THIS PATIENT. PRESCRIPTION DRUG MANAGEMENT PRESCRIPTIONS WILL INCLUDE SYMPTOMATIC CARE PATIENT'S PRIOR EXTERNAL MEDICAL RECORDS FROM OTHER ER VISITS WERE REVIEWED BY ME INDICATED. PRIOR TESTING AND RESULTS FROM PREVIOUS VISITS WERE REVIEWED. PRIOR TESTS WERE TAKEN INTO ACCOUNT WITH MEDICAL DECISION MAKING AND RESOURCE UTILIZATION, INDEPENDENT HISTORIAN/HISTORIANS WERE USED TO OBTAIN COMPLETE [facility] HISTORY. I INDEPENDENTLY INTERPRETED THE TEST THAT WERE PERFORMED, RESULTS WERE REVIEWED BY ME AND CONSIDERED FINDINGS ON RADIOLOGY IF ORDERED. MEDICAL MANAGEMENT AND EXAMINATION INTERPRETATION DISCUSSIONS WERE HAD BY ME WITH OTHER QUALIFIED HEALTHCARE PROFESSIONALS INDICATED FOR THE PATIENT'S CARE. PATIENT WILL BE ADMITTED UNDER THE CARE OF DR. VALLEJO SCREEN TENDER HELPER FOR P OSSIBLE ABLATION VERSUS CATHETERIZATION. ED Course Orders Procedure Category Date Status Time Vital Signs Per CPOE 07/19/24 Transmitted Routine 06:36 B-Type Natriuretic LAB 07/19/24 Complete Peptide 06:36 Chest 1vw RAD 07/19/24 Resulted 06:36 12 Lead Ekg Tracing- EKG 07/19/24 Complete Technical 06:36 Oxygen By Nc/Pulse Ox CPOE 07/19/24 Transmitted 06:36 Maintain Iv CPOE 07/19/24 Transmitted 06:36 Iv Insertion CPOE 07/19/24 Transmitted 06:36 Cardiac Monitoring CPOE 07/19/24 Transmitted 06:36 Pulse Oximetry With CPOE 07/19/24 Transmitted Vs And Prn 06:36 Cbc With Differential LAB 07/19/24 Complete 06:36 Activity: Br W/Brp CPOE 07/19/24 Transmitted With Assist 06:36 Creatine Kinase, Total LAB 07/19/24 Complete 06:36 Troponin I High LAB 07/19/24 Complete Sensitivity 06:36 Urinalysis Profile LAB 07/19/24 Complete 06:36 Basic Metabolic Panel LAB 07/19/24 Complete 06:36 Potassium Bicarb/Cit PHA 07/19/24 Complete Ac 25meq (K-Lyte Ta 08:00 0.9%Nacl 1000ml (Ns PHA 07/19/24 Complete 1000ml) 09:00 Vital Signs(Adult CPOE 07/19/24 Transmitted Hospitalist) 10:51 Nurse To Enter Home CPOE 07/19/24 Transmitted Medication 10:51 Admit Orders ADM 07/19/24 Transmitted 10:51 Activity: Ad Jessica CPOE 07/19/24 Transmitted 10:51 Heart Healthy Diet DIET 07/19/24 Transmitted Lunch Currently On CPOE 07/19/24 Transmitted Therapy(Vte) 10:51 Saline Lock Iv CPOE 07/19/24 Transmitted 10:51 Acetaminophen 500mg PHA 07/19/24 In Process Tab (Tylenol 500mg T 11:00 Zolpidem Tartrate 5 PHA 07/19/24 Logged Mg Tab (Ambien) 11:00 Magnesium LAB 07/19/24 Logged 10:51 *Nursing CPOE 07/19/24 Transmitted Communication: 10:51 Application Development Liaison Procedure CATH 07/19/24 Logged Request 10:51 Consent: Ep/Ablation CPOE 07/19/24 Transmitted 10:51 Nothing By Mouth DIET 07/20/24 Transmitted Breakfast Clip Groins From Umb CPOE 07/19/24 Transmitted To Knee 10:51 Current Medications Medications (Trade) Dose Ordered Sig/Hunter Route PRN Reason Start Time Stop Time Status Last Admin Dose Admin Acetaminophen (TYLenol 500MG TAB) 1,000 mg Q6H6 PRN PO HEADACHE 07/19/24 11:00 08/18/24 10:59 Potassium Bicarbonate (K-Lyte Tablet Eff 25 Meq Tablet.eff) 50 meq ONCE ONCE PO 07/19/24 08:00 07/19/24 08:01 DC 07/19/24 08:10 Sodium Chloride 1,000 ml @ 0 mls/hr ONCE ONCE IV 07/19/24 09:00 07/19/24 09:01 DC 07/19/24 08:48 Zolpidem Tartrate (AmbIEN) 2.5 mg HS PRN PO INSOMNIA/SLEEP 07/19/24 11:00 08/18/24 10:59 UNV Vital Signs Date Time Temp Pulse Resp B/P (MAP) Pulse Ox O2 Delivery O2 Flow Rate FiO2 07/19/24 09:55 97.9 89 18 101/68 97 Room Air* 0 07/19/24 08:40 97.5 89 16 102/63 96 Room Air* 0 07/19/24 07:27 98.4 87 19 120/76 100 Room Air* 0 07/19/24 06:24 97.2 84 20 130/85 98 Room Air DX & DISP Disposition: Inpatient Decision to Admit Time: 11:17 Departure Impression: Primary Impression: Atrial fibrillation with RVR Condition: Stable Referrals: SELF,REFERRAL (PCP) MALIK BLOOM MD July 19, 2024 06:59 GUILLAUME GORMAN MD July 19, 2024 11:15
[2024-07-19 07:24] LABS: BASOPHILS # (AUTO) 0.04 K/uL (0.00-0.20); BASOPHILS % (AUTO) 0.8 % (0.0-5.0); EOSINOPHILS # (AUTO) 0.16 K/uL (0.00-0.70); HEMATOCRIT 45.7 % (36-48); IMMATURE GRANULOCYTE ABSOLUTE 0.05 K/uL (0-1); LYMPHOCYTES # (AUTO) 1.7 K/uL (1.0-4.8); LYMPHOCYTES % (AUTO) 31.3 % (21.0-51.0); MEAN CORPUSCULAR HEMOGLOBIN 31.6 pg (27.0-33.0); MEAN CORPUSCULAR HGB CONC 33.5 g/dL (32.0-36.0); MEAN CORPUSCULAR VOLUME 94.4 fL (79-99); MONOCYTES # (AUTO) 0.4 K/uL (0.1-1.0); MONOCYTES % (AUTO) 7.5 % (3.0-13.0); NEUTROPHILS % (AUTO) 56.5 % (40.0-77.0); PLATELET COUNT (AUTO) 164 K/uL (130-400); RED BLOOD CELL COUNT(AUTO) 4.84 MIL/uL (4.00-5.50); RED CELL DISTRIBUTION WIDTH 13.4 % (11.0-15.5); WHITE BLOOD COUNT (AUTO) 5.3 K/uL (4.8-10.8)
[2024-07-19 07:45] LABS: POTASSIUM 2.8 mmol/L (3.5-5.1)
[2024-07-19 08:00] LABS: B-TYPE NATRIURETIC PEPTIDE 30 pg/mL (0-100)
[2024-07-19] MEDS: PoTASSium BIcarbonate/CIT AC 25 MEQ TABLET.EFF PO ONE (08:10)
[2024-07-19] MEDS: 0.9%NACL 1000ML 1,000 ML IV ONE (08:48)
--- NOTE | 2024-07-19 08:49 | EKG ---
[facility] Test Date: 2024-07-19 Test Time: 06:33:06 Pat Name: PATTI MOELLER Department: [facility] Room: 231 Gender: F Dioramist: [id number] : 1960 Requested By: MALIK BLOOM Order Number: [id number] Reading MD: Antonio Reddy Measurements Intervals [place] Rate: 95 P: 0 MI: 0 QRS: -53 QRSD: 130 T: -68 QT: 420 QTc: Interpretive Statements Atrial flutter with predominant 2:1 AV block RBBB and LAFB Probable left ventricular hypertrophy Nonspecific T abnormalities, lateral leads ST elevation, consider lateral injury Electronically Signed On 07-21-2024 12:28:43 CDT by Antonio Reddy Please click the below link to view image of tracing.
--- NOTE | 2024-07-19 09:17 | HMCIMG ---
Exam Type: CHEST 1VW Clinical Information: CHEST PAIN Comparison: None Findings: The lungs are clear of infiltrates. The heart is enlarged. Bony and soft tissue structures of the chest wall are unremarkable. IMPRESSION: Cardiomegaly. Clear lungs.
[2024-07-19 09:48] LABS: ADD UA MICROSCOPIC YES; APPEARANCE,URINE CLEAR (CLEAR); BILIRUBIN,URINE NEGATIVE (NEGATIVE); COLOR,URINE YELLOW (YELLOW); GLUCOSE, URINE (UA) NEGATIVE (NEGATIVE); KETONES,URINE NEGATIVE (NEGATIVE); LEUKOCYTE ESTERASE ,URINE NEGATIVE Leu/uL (NEGATIVE); NITRATE,URINE NEGATIVE (NEGATIVE); OCCULT BLOOD,URINE NEGATIVE (NEGATIVE); PROTEIN,URINE 10 mg/dL (NEGATIVE)
[2024-07-19 09:52] LABS: BACTERIA,URINE RARE /HPF (None Seen); MUCUS,URINE RARE LPF (None Seen); SQUAMOUS EPITHELIAL CELL,UR RARE /HPF (0-2)
[2024-07-19] MEDS ORDERED: LEVO175C3 PO (10:56)
[2024-07-19] MEDS ORDERED: METO50TA18 PO (10:56)
[2024-07-19] MEDS ORDERED: ZOLPidem TARTrate 5 MG TAB PO PRN (11:00)
--- NOTE | 2024-07-19 12:48 | NUR ---
HOME MEDICATIONS WERE INPUTTED
--- NOTE | 2024-07-19 14:57 | NUR ---
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 Pt lives with Tyshawn Elder [phone]. Pt remains independent of her ADLS, home management and meal prep. Uses no DME or in home care services. Pcp is Vivienne Infante and uses [facility] for rx needs. denies need for SNF, will return home at dc Addendum: 07/19/24 at 1500 by NABIL ENAMORADO SS Amended: Links added.
--- NOTE | 2024-07-19 15:35 | NUR ---
PATIENT TRANSFERING TO ROOM 231. CALLED AND GAVE REPORT TO MRS.ELIANA MCCRAY. NOTIFY MRS. RIOJAS THAT PATIENT HAS A PENDING PROCEDURE FOR TOMORROW WITH DR. MOSELEY. POTASSIUM COVERED BY PREVIOUS NURSE .
--- NOTE | 2024-07-19 15:35 | NUR ---
HOME MEDICATIONS REVIEWED, PENDING TO BE RENIEWED BY PHSICIAN.
--- NOTE | 2024-07-19 15:36 | NUR ---
VITAL SIGNS BEFORE LEAVING UNIT: BLOOD PRESSURE 128/72 MMHG PULSE 90 P/MIN TEMPERATURE 98.4 O2 SATURATION 96% RESPIRATIONS 15P/MIN
--- NOTE | 2024-07-19 15:38 | CONS ---
[facility] CARDIAC ELECTROPHYSIOLOGY HISTORY AND PHYSICAL Date Patient Seen: July 19, 2024 Time of Visit: 12:22 Chief Complaint: Dyspnea History of Present Illness: The patient is a 64-year-old woman known to me with a history of atrial fibrillation and atrial flutter. Back in March 2021 she presented with presented withhad episodes of both atrial fibrillation and flutter. On 08/24/2022 she underwent successful catheter ablation of counterclockwise type I atrial flutter. She did well for about a year until August 2023 when she developed atrial fibrillation (this EKG indicates that it may have been a left atrial tachycardia). Since that time she has had multiple EKG showing atrial flutter, basically from March 2021 to 07/10/24. She did have a cardioversion by Dr. Mar Sanon on 04/12/2024 but this promptly recurred. 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 This was switched to Multaq but then later switched back to amiodarone. 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 The right and left atrium are mildly dilated and there is no significant valvular disease. She now presents with increasing shortness of breath and inability to sleep last night. Her EKG shows again counterclockwise type I atrial flutter. He has been compliant with her Eliquis 5 mg twice daily Past Medical History: mild nonobstructive artery disease hypertension hyperlipidemia obstructive sleep apnea asthma migraines Family History: noncontributory Social History: denies smoking or alcohol abuse Review of Systems: Negative other 13 point review Physical Examination: GENERAL: Obese female in no apparent distress HEENT: grossly within normal limits NECK: no JVD LUNGS: clear HEART: slightly tachycardic, irregular, no murmur ABD: cardioversion EXT: no edema Vital Signs (last 8hr) Date Time Temp Pulse Resp B/P (MAP) Pulse Ox O2 Delivery O2 Flow Rate FiO2 07/19/24 13:13 98.2 85 18 117/79 99 Room Air* 0 21 07/19/24 09:55 97.9 89 18 101/68 97 Room Air* 0 07/19/24 08:40 97.5 89 16 102/63 96 Room Air* 0 21 07/19/24 07:27 98.4 87 19 120/76 100 Room Air* 0 21 Laboratory: [ ] Hematology Labs: Test 07/19/24 07:11 Range/Units White Blood Count 5.3 4.8-10.8 K/uL Red Blood Count 4.84 4.00-5.50 MIL/uL Hemoglobin 15.3 12.0-16.0 g/dL Hematocrit 45.7 36-48 % Mean Corpuscular Volume 94.4 79-99 fL Mean Corpuscular Hemoglobin 31.6 27.0-33.0 pg Mean Corpuscular Hemoglobin Concent 33.5 32.0-36.0 g/dL Red Cell Distribution Width 13.4 11.0-15.5 % Platelet Count 164 130-400 K/uL Mean Platelet Volume 10.4 7.5-10.5 fL Immature Granulocyte % (Auto) 0.9 0-1 % Neutrophils (%) (Auto) 56.5 40.0-77.0 % Lymphocytes (%) (Auto) 31.3 21.0-51.0 % Monocytes (%) (Auto) 7.5 3.0-13.0 % Eosinophils (%) (Auto) 3.0 0.0-8.0 % Basophils (%) (Auto) 0.8 0.0-5.0 % Neutrophils # (Auto) 3.0 1.8-7.7 K/uL Lymphocytes # (Auto) 1.7 1.0-4.8 K/uL Monocytes # (Auto) 0.4 0.1-1.0 K/uL Eosinophils # (Auto) 0.16 0.00-0.70 K/uL Basophils # (Auto) 0.04 0.00-0.20 K/uL Absolute Immature Granulocyte (auto 0.05 0-1 K/uL Nucleated Red Blood Cells 0.0 0.0-0.19 % Chemistry Labs: Test 07/19/24 07:11 Range/Units Sodium Level 141 136-145 mmol/L Potassium Level 2.8 *L 3.5-5.1 mmol/L Chloride Level 108 101-111 mmol/L Carbon Dioxide Level 27 21-32 mmol/L Blood Urea Nitrogen 21 H 7-18 mg/dL Creatinine 1.0 0.5-1.0 mg/dL Glomerular Filtration Rate Calc 63 >90 mL/min Random Glucose 109 H 70-105 mg/dL Total Calcium 8.4 L 8.5-10.1 mg/dL Magnesium Level 1.90 1.80-2.40 mg/dL Total Creatine Kinase 125 # 21-232 U/L Troponin I High Sensitivity 34 4-50 ng/L B-Type Natriuretic Peptide 30 0-100 pg/mL Assessment: 1. Recurrent counterclockwise type I atrial flutter 2. Atrial fibrillation by history 3. Mild nonobstructive coronary artery disease 4. Normal LV systolic function and basically unremarkable echocardiogram except for mild biatrial dilatation. 5. Asthma, stable on treatment Plan: 1. At this point we will proceed with catheter ablation of her atrial flutter. 2. Following this, she will undergo outpatient monitoring to determine the burden of atrial fibrillation. CRISTA VLALEJO MD July 19, 2024 15:38
[2024-07-19 16:11] VITALS: BP 126/74; PULSE 102; RESP 24; TEMP 98.1
[2024-07-19 17:04] VITALS: O2SAT 97
[2024-07-19 19:30] VITALS: BP 151/87; PULSE 90; RESP 18; TEMP 98.7
[2024-07-19] MEDS: acetaMINOPHEN 500 MG TABLET PO PRN (20:29)
[2024-07-19 20:30] VITALS: O2SAT 98
[2024-07-19 23:21] VITALS: BP 158/90; PULSE 91; RESP 18; TEMP 98
[2024-07-20] VITALS (26 sets, daily range): BP systolic 105–152; BP diastolic 66–91; PULSE 60–94; RESP 17–22; TEMP 97–98; O2SAT 98
[2024-07-20 08:31] LABS: HEMATOCRIT 41.6 % (36-48); MEAN CORPUSCULAR HEMOGLOBIN 31.7 pg (27.0-33.0); MEAN CORPUSCULAR HGB CONC 34.1 g/dL (32.0-36.0); MEAN CORPUSCULAR VOLUME 92.9 fL (79-99); RED BLOOD CELL COUNT(AUTO) 4.48 MIL/uL (4.00-5.50); RED CELL DISTRIBUTION WIDTH 13.5 % (11.0-15.5); WHITE BLOOD COUNT (AUTO) 4.4 K/uL (4.8-10.8)
[2024-07-20 08:38] LABS: CREATININE 0.8 mg/dL (0.5-1.0); MAGNESIUM 1.8 mg/dL (1.80-2.40); POTASSIUM 3.1 mmol/L (3.5-5.1)
[2024-07-20] MEDS: PoTASSium chloRIDE 20MEQ/100ML 100 ML IV PRN (09:06)
[2024-07-20] MEDS ORDERED: LIDOCAINE HCL 400MG/20ML VIAL ONE (09:08)
[2024-07-20] MEDS ORDERED: SODIUM BICARB 50MEQ 50ML VIAL 50 ML ONE (09:09)
[2024-07-20] MEDS ORDERED: HEParin 10,000 UNIT/10ML (1,000 UNIT/ML) VIAL ONE (09:09)
[2024-07-20] MEDS ORDERED: HEParin-NS 1,000 UNIT/500 ML 500 ML IV ONE ×2 (09:09→10:26)
--- NOTE | 2024-07-20 09:20 | NUR ---
TAKEN TO ACCOUNT ANALYST VIA BED, STABLE AND IV POTASSIUM INFUSING PER PROTOCOL (K+ 3.1)
[2024-07-20] MEDS ORDERED: NOREPINEPHRINE BITARTRATE 1 MG/1 ML ML IV ONE (09:33)
[2024-07-20] MEDS ORDERED: LIDOCAINE PF 100MG/5ML (2%) SYRINGE 5ML ONE (09:33)
[2024-07-20] MEDS ORDERED: rocuRONium bROMide 10MG/1ML 5ML VL ONE (09:34)
[2024-07-20] MEDS ORDERED: proPOFol 10 MG/ML 20ML VIAL IV ONE (09:34)
[2024-07-20] MEDS ORDERED: NEOSTIGMINE METHYLSULFATE 1MG/ML IV ONE (09:34)
[2024-07-20] MEDS ORDERED: ketaMINE 50MG/ML SYRINGE 50 MG/ML DISP.SYRIN ONE (09:34)
[2024-07-20] MEDS ORDERED: GLYCOPYRROLATE 0.2 MG/ML 5 ML VIAL ONE (09:34)
[2024-07-20] MEDS ORDERED: phenylEPHRINE HCL 10 MG/ML 1ML VIAL IV ONE (09:34)
[2024-07-20] MEDS ORDERED: FENTanyl CITRate PF 50 MCG/1 ML 2ML VIAL ONE (09:34)
[2024-07-20] MEDS ORDERED: MIDAZOLAM HCL 1 MG/ML 2ML VIAL ONE (09:34)
[2024-07-20] MEDS ORDERED: SUCCINYLCHOLINE CHLORIDE 20 MG/ML 10 ML VIAL ONE (09:36)
[2024-07-20 09:38] LABS: INR 0.98 (0.85-1.15); PROTHROMBIN TIME 10.4 SEC (9.6-11.6)
[2024-07-20 09:40] LABS: PARTIAL THROMBOPLASTIN TIME 29.9 SEC (26.3-35.5)
[2024-07-20] MEDS: ALBUTEROL 0.083% 2.5 MG/3 ML INH IH ONE (10:08)
[2024-07-20] MEDS: morPHINE 2 MG SYG ONE (12:50)
--- NOTE | 2024-07-20 13:25 | NUR ---
BACK FROM [facility] [facility], S/P ABLATION BY DR. VALLEJO. RIGHT GROIN SOFT WITH DRESSING DRY AND INTACT. BEDREST UNTIL 1529. WILL CONTINUE TO MONITOR. WILL CONTINUE TO MONITOR.
[2024-07-20] MEDS: SUGAMMADEX SODIUM 200 MG/2 ML VIAL IV ONE (13:43)
[2024-07-20] MEDS ORDERED: PoTASSium chloRIDE 20MEQ ER 20 MEQ ERTAB PO PRN (15:00)
[2024-07-20] MEDS ORDERED: PoTASSium chloRIDE 20MEQ/100ML 100 ML IV PRN (15:00)
--- NOTE | 2024-07-20 15:18 | EKG ---
[facility] Test Date: 2024-07-20 Test Time: 13:43:27 Pat Name: PATTI MOELLER Department: [facility] Room: 231 1 Gender: F Energy Administrator: [id number] [id number] Requested By: CRISTA VALLEJO Order Number: [id number] Reading MD: Antonio Reddy Measurements Intervals [place] Rate: 63 P: 40 MA: 183 QRS: -43 QRSD: 115 T: 111 QT: 447 QTc: 458 Interpretive Statements Sinus rhythm Nonspecific IVCD with LAD Left ventricular hypertrophy Nonspecific T abnormalities, lateral leads Electronically Signed On 07-22-2024 13:07:02 CDT by Antonio Reddy Please click the below link to view image of tracing.
[2024-07-20] MEDS: PoTASSium chl 10% ELIXIR 20MEQ 20 MEQ/15 ML UDCUP PO PRN (15:21)
--- NOTE | 2024-07-20 18:45 | NUR ---
GIVEN DISMISSAL INSTRUCTIONS, VERBALIZED UNDERSTANDING. REMOVED TELE PACK, REMOVED IV FROM RIGHT ARM AND LEFT ARM , BOTH IV SITES WITHOUT REDNESS. TAKEN TO PRIVATE CAR ALONG WITH PERSONAL BELONGINGS VIA WHEELCHAIR BY TERRI KAYE.
== END 2024-07-20 19:00 | disposition home or self-care (01) ==
LOC: EDH 06:19 → EDHIP 06:20 → 2AH 16:06
PROVIDERS: ADMIT Internal Medicine Cardiovascular Disease; ATTEND Internal Medicine Cardiovascular Disease
DX: I48.3 Typical atrial flutter (principal); I48.91 Unspecified atrial fibrillation; E78.00 Pure hypercholesterolemia, unspecified; E03.9 Hypothyroidism, unspecified; I11.9 Hypertensive heart disease without heart failure; I25.10 Atherosclerotic heart disease of native coronary artery without angina pectoris; I42.9 Cardiomyopathy, unspecified; J45.909 Unspecified asthma, uncomplicated; R42 Dizziness and giddiness; R00.2 Palpitations; G47.00 Insomnia, unspecified; Z79.01 Long term (current) use of anticoagulants; Z98.890 Other specified postprocedural states; Z79.899 Other long term (current) drug therapy
CPT/HCPCS: 99285; 82550; 83735 ×2; 84484; 80048 ×2; 83880; 85025; 81001; 36415 ×2; 71045; 93005 ×2; 93653; 84132; 85027; 85610; 85730; 94640; G0378 ×32; C1894 ×2; C1732 ×3; A4649 ×2; C1760 ×2; J3010; J3490 ×6; J0330; J2270; J2003; J1644 ×3; J2250; J2704; J3480; J2710; J2371